=== PATIENT | female | born 1950 | race Caucasian/White ===

== ENCOUNTER 2021-06-26 10:32 | Emergency (ER) | payer MEDICARE, SELFPAY ==
[2021-06-26 10:34] VITALS: BP 155/80; PULSE 70; RESP 18; TEMP 36.6; O2SAT 99; BMI 24.1
--- NOTE | 2021-06-26 10:48 | EX.ED.UPPERE ---
HPI History of Present Illness HPI Narrative: Patient presents with pain in her left wrist that began after a fall today. Patient states she stepped on ice and fell through it. Patient states this caused her to fall onto some wooden steps. Patient denies any head injury or loss of consciousness. Patient states her pain is over the radial aspect of her left wrist. Patient also admits to some pain in her left upper arm. Patient states her pain is worse with any movement. Patient denies any paresthesias or weakness. Patient denies any other injuries. Chief Complaint: Upper Extremity Injury Informant: patient Occured/Mechanism Mechanism/Context: Yes fall and Yes same level fall Onset/Context/Timing Onset: Today Context: Sudden Onset Timing: Continuous Quality of Pain: Sharp and Aching Location: Left wrist Worsened by: Movement Relieved by: Nothing Associated Symptoms Associated Symptoms: Negative for Parasthesia, Weakness and Loss of Funtion PFSH PFS Medical History (Updated 06/26/21 @ 12:[address] Chandan Villanueva DO) Hx of ectopic Home Medications NK 06/26/21 [History Last Taken Unknown] Allergy/AdvReac Type Severity Reaction Status Date / Time No Known Allergies Allergy Verified 06/26/21 10:36 Surgical History (Updated 06/26/21 @ 11:28 by Brandee Orellana) Hx of knee surgery Hx of tonsillectomy Social History Smoking Status: Former smoker ROS ROS ED Constitutional Constitutional ED: Denies chills or fever(s) Eyes Eyes: Denies blurry vision or change in vision ENT ENT ED: Denies rhinorrhea or sore throat Cardiovascular Cardiovascular: Denies chest pain or palpitations Respiratory/Chest Respiratory/Chest: Denies cough or dyspnea Gastrointestinal Gastrointestinal: Denies nausea or vomiting Genitourinary Genitourinary ED: Denies dysuria or hematuria Musculoskeletal Musculoskeletal: Denies back pain or neck pain Integumentary Denies abscess or rash Neurologic Neurologic: Denies headache(s) or weakness Allergic/Immunologic Allergic/Immunologic ED: Denies mouth swelling or urticaria EXAM Physical Exam Const Vital Signs: 06/26/21 10:34 Temperature 97.9 F Temperature Source Temporal Pulse Rate 70 Respiratory Rate 18 Blood Pressure 155/80 H Blood Pressure Mean 105 Pulse Ox 99 Oxygen Delivery Method Room Air Positive well nourished and well developed General Appearance ED: well developed HEENT Reports moist mucous membranes Neck full ROM and supple Extremity Extremity Narrative: There is tenderness, edema, and ecchymosis over the radial aspect of the left wrist. Range of motion was limited in all motions of the left wrist secondary to pain. There is no obvious deformity noted. There is mild tenderness over the left humerus. There is no deformity. There is good range of motion of the left shoulder and left elbow. Radial pulses are equal bilaterally. Sensation was intact to light touch in the radial, median, and ulnar areas. Strength is 5/5 in the radial, median, and ulnar areas. Neuro oriented x3, CN's II-XII intact bilaterally, moves all extremities, no focal motor deficits and no sensory deficits noted Sensorium / Orientation: alert Skin Skin Narrative: There is a small superficial abrasion over the posterior aspect of the left elbow. There is no active bleeding. There is no tenderness. There is full range of motion of the left elbow. MDM MDM MDM Narrative Medical decision making narrative: X-rays of the left wrist were obtained. There are 4 views. On my interpretation, there is a questionable nondisplaced fracture of the dorsal aspect of the distal radius. There are some degenerative changes noted in the carpal bones. Radiologist also interpreted the x-ray and agrees. X-rays of the left humerus were obtained. There are 4 views. On my interpretation, there is no acute fracture noted. There is no soft tissue swelling. Radiologist also interpreted the x-ray and agrees. Patient was advised of her findings. Patient was advised that this could be an occult scaphoid fracture. Patient was given a referral for orthopedic follow-up in 2 weeks for reevaluation and repeat x-ray. Patient declined analgesics. Patient was given restrictions for work. Patient understood and was agreeable with the plan. All questions were answered. Discharge Plan Triage Chief Complaint: Upper Extremity Injury ED Provider: Chandan Villanueva Dx/Rx/DC Orders Clinical Impression: Avulsion fracture Instructions: ED Possible Wrist Fracture Prescriptions: No Action NK RF: 0 Primary Care Provider: Care Physician,No Primary Referrals: Macho Marley MD [STAFF PHYSICIAN] - 1-2 Weeks Care Physician,No Primary [Primary Care Provider] - Disposition Disposition: Home, Self Care
--- NOTE | 2021-06-26 11:00 | RAD_ITS ---
STUDY: X-RAY - LEFT HUMERUS REASON FOR EXAM: Left upper arm pain, left upper arm injury. TECHNIQUE: 2 view(s) of the humerus. COMPARISON: None. FINDINGS: Normal visualized humerus. There is no demonstrated fracture or osseous destructive process. There is no demonstrated soft tissue abnormality. RAD/Humerus min 2 Views IMPRESSION: Normal x-ray examination of the left humerus. Electronically Signed: Misael Sarmiento MD at 11:58 EST ,
--- NOTE | 2021-06-26 11:00 | RAD_ITS ---
STUDY: X-RAY - LEFT WRIST REASON FOR EXAM: Left wrist pain, swelling, left wrist injury this morning. TECHNIQUE: 3 view(s) of the wrist were obtained. COMPARISON: None. FINDINGS: There is osteopenia. There is a subtle cortical break at the dorsal aspect of the distal radius, visualized only on the lateral view. Normal radiocarpal articulation. Normal distal radioulnar articulation. Normal carpal bones. There is joint space narrowing of the triscaphe articulation. Normal carpometacarpal articulation of the thumb. Normal second through fifth carpometacarpal articulations. There is shortening of the third and fourth metacarpals. There is soft tissue swelling. RAD/Wrist min 3 Views IMPRESSION: Suspected subtle nondisplaced fracture of the distal radius. Triscaphe arthrosis. Electronically Signed: Misael Sarmiento MD at 11:50 EST ,
[2021-06-26 12:08] VITALS: BP 150/78; PULSE 72; RESP 18; O2SAT 98
== END 2021-06-26 12:23 | disposition home or self-care (01) ==
PROVIDERS: Emergency Provider Emergency Medicine; Visit Provider Emergency Medicine
DX: S52.502A Unspecified fracture of the lower end of left radius, initial encounter for closed fracture (principal); W00.1XXA Fall from stairs and steps due to ice and snow, initial encounter; M19.032 Primary osteoarthritis, left wrist; Z87.891 Personal history of nicotine dependence
CPT/HCPCS: 73060; 73110; 99283

== ENCOUNTER 2024-05-17 17:18 | Inpatient (IN) | payer MEDICARE, SELFPAY ==
[2024-05-17] VITALS (12 sets, daily range): BP systolic 119–181; BP diastolic 78–103; PULSE 90–155; RESP 18–20; TEMP 36.6–37.8; O2SAT 79–96; BMI 19.1; BMI 20.7
--- NOTE | 2024-05-17 17:31 | EKG12_ITS ---
Test Reason : SOB Blood Pressure : */* mmHG Vent. Rate : 113 BPM Atrial Rate : 113 BPM P-R Int : 172 ms QRS Dur : 68 ms QT Int : 334 ms P-R-T Axes : 19 -6 73 degrees QTcB Int : 458 ms Sinus tachycardia Inferior infarct , age undetermined Abnormal ECG Confirmed by Hari Lewis ([id number]), proposal editor MARIAH PINK ([id number]) on 05/18/2024 9:37:35 AM Referred By: ES/UG Confirmed By: Hari Lewis
--- NOTE | 2024-05-17 17:32 | EDS_ITS ---
HPI History of Present Illness Chief Complaint: Fever Detail of Chief Complaint: Fever, cough, wheezing and dizziness defined as lightheadedness Informant: patient Onset/Context/Timing Onset: Weeks (Illness started approximately 2 weeks ago.) Context: Sudden Onset Timing: Continuous and Waxes and wanes Quality: Upper respiratory Location: Respiratory Current Severity: Mild Maximum Severity: Moderate Worsened by: Activity Relieved by: Nothing Associated Symptoms Associated Symptoms: Subjective fever Narrative Narrative: Patient is a 73-year-old woman no medication with no reported past medical history who presents because of cough, intermittent wheezing, fever. 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 Does not know the type of pneumonia. She is a smoker. She has smoked since she was very young. She presently smokes a couple to several cigarettes a day. She denies headache, visual, ocular auditory symptoms. She does endorse dyspnea with activity, nonproductive cough. She denies pain with breathing. She denies pain in her calves, swelling of her legs or discoloration of her legs. She denies abdominal pain, nausea, vomiting or diarrhea. Prior similar symptoms: Yes Recent Illness/Hospitalization: [facility] Medical History (Updated 05/17/24 @ 19:[address] Sharona Sequeira MD) Smoker Tobacco use Hx of ectopic Home Medications ?Medication ?Instructions ?Recorded ?Last Taken ?Type NK 06/26/21 Unknown History Allergy/AdvReac Type Severity Reaction Status Date / Time No Known Allergies Allergy Verified 05/17/24 17:18 Surgical History Hx of tonsillectomy Hx of knee surgery Social History (Updated 05/17/24 @ 17:[address] Yeison Anderson MD) household members: none Smoking Status: Current some day smoker tobacco type: cigarettes ROS ROS ED Constitutional Constitutional ED: Reports chills, fever(s) and subjective; Denies sweats or weight loss Eyes Eyes: Denies blurry vision, change in vision or diplopia ENT ENT ED: Denies ear pain, rhinorrhea or sore throat Cardiovascular Cardiovascular: Denies chest pain, orthopnea, palpitations, paroxysmal nocturnal dyspnea or racing heartbeat Respiratory/Chest Respiratory/Chest: Reports cough, dyspnea and dyspnea on exertion; Denies orthopnea, paroxysmal nocturnal dyspnea or sputum Gastrointestinal Gastrointestinal: Denies abdominal pain, melena, nausea or vomiting Genitourinary Genitourinary ED: Denies dysuria, hematuria or urinary frequency Musculoskeletal Musculoskeletal: Denies arthralgias, back pain or myalgias Integumentary Denies rash Neurologic Neurologic: Denies headache(s) or paresthesias Psychiatric Psychiatric: Denies anxiety or depression Endocrine Endocrinology: Denies cold intolerance or heat intolerance Hematologic/Lymphatic Hematologic/Lymphatic: Reports systems reviewed and no addt'l complaints, except as documented EXAM Physical Exam Const Vital Signs: 05/17/24 17:19 05/17/24 17:20 05/17/24 17:31 Temperature 100.1 F H 100.1 F H Temperature Source Oral Oral Pulse Rate 155 H 155 H Respiratory Rate 18 18 Respiratory Effort Normal Non-Labored Respiratory Depth Respiratory Pattern Normal Blood Pressure 152/103 H 152/103 H Blood Pressure Mean 119 119 Pulse Ox 92 92 Oxygen Delivery Method Room Air Room Air 05/17/24 17:49 05/17/24 17:52 05/17/24 18:18 Temperature Temperature Source Pulse Rate 110 H 104 H Respiratory Rate 20 H 18 Respiratory Effort Normal Non-Labored Respiratory Depth Normal Respiratory Pattern Normal Blood Pressure 163/83 H Blood Pressure Mean 109 Pulse Ox 90 Oxygen Delivery Method 05/17/24 18:20 05/17/24 18:57 Temperature 99.9 F H Temperature Source Oral Pulse Rate 104 H Respiratory Rate 18 Respiratory Effort Respiratory Depth Respiratory Pattern Blood Pressure 163/83 H Blood Pressure Mean 109 Pulse Ox 90 79 Oxygen Delivery Method Room Air Room Air Positive well developed and cachectic; Negative for contractures or unkempt General Appearance ED: well developed, cachectic and NAD; Negative for unkempt, contractures, cyanotic, diaphoretic or pallor Nutritional Appearance: cachectic HEENT Reports moist mucous membranes HEENT Narrative: Ears normal. Nares patent without discharge. Posterior pharynx unremarkable. Patient has no teeth. Eyes PERRL and EOMs intact bilaterally General Eye ED: Negative for pale conjunctiva or scleral icterus Neck no lymphadenopathy, supple and no JVD Neck Narrative: Trachea is midline. There is no inspiratory stridor or expiratory stridor. Chest Wall inspection of chest normal and palpation of chest normal Resp normal respiratory effort and No clear to auscultation bilaterally Auscultation: wheezes expiratory wheezes, scattered wheezes and posterior Cardio regular rhythm, S1 normal heart sound, S2 normal heart sound and no murmurs Rate: tachycardic GI normal to inspection, nondistended, normoactive bowel sounds, non-tender, non- distended and no masses; Negative for hepatosplenomegaly Back/Spine no CVA tenderness Extremity normal to inspection Extremity Narrative: There is no asymmetry, swelling, discoloration, leg vein distention, palpable cords or tenderness along the distribution of the deep venous system. Neuro oriented x3 and CN's II-XII intact bilaterally Sensorium / Orientation: alert Psych mental status grossly normal Appearance: Negative for unkempt Skin no rashes or lesions noted, no wounds and No skin turgor normal Skin Narrative: Patient has delayed capillary refill. Cap refill is approximately 3 seconds. General Skin Exam: Negative for jaundice or pallor Sepsis Attestation Date exam was performed: 05/17/24 Time exam was performed: 17:38 MDM MDM MDM Narrative Medical decision making narrative: Concern patient has pulmonary infection. Will obtain chest x-ray appropriate blood work to assess for endorgan dysfunction. Since patient has delayed capillary fill with a heart rate of 155 EKG was ordered and 10 cc/kg of normal saline was ordered. Patient has no recent records for review. Lab Data Attestation: I reviewed the patient's lab results. Lab results narrative: CBC is unremarkable. There is a slight shift with 82% segs. Lactate is normal. Comprehensive metabolic panel for slight elevation of creatinine of 1.05 with an estimated GFR 54. Rapid antigen for COVID, influenza and RSV is positive for RSV. Labs: Laboratory Results - last 24 hr 05/17/24 05/17/24 17:43 17:45 WBC 9.1 RBC 4.87 Hgb 14.7 Hct 45.1 MCV 92.6 MCH 30.2 MCHC 32.6 RDW Std Deviation 45.5 H RDW Coeff of Zeb 13.2 Plt Count 234 MPV 9.8 Immature Gran % (Auto) 0.300 Neut % (Auto) 86.2 H Lymph % (Auto) 6.5 L [place] % (Auto) 6.8 Eos % (Auto) 0.0 Baso % (Auto) 0.2 Absolute Neuts (auto) 7.9 H Absolute Lymphs (auto) 0.59 L Nucleated RBC % 0 Sodium 136 Potassium 3.3 L Chloride 100 Carbon Dioxide 27.0 Anion Gap 9 BUN 18 Creatinine 1.05 H Estim Creat Clear Calc 38.61 Est GFR (MDRD) Af Amer 66 Est GFR (MDRD) Non-Af 54 L BUN/Creatinine Ratio 17.1 Glucose 155 H Lactic Acid 1.8 Calcium 9.2 Total Bilirubin 0.90 AST 31 ALT 19 Alkaline Phosphatase 103 Total Protein 7.4 Albumin 3.4 Globulin 4.0 Albumin/Globulin Ratio 0.8 L Radiography Chest X-Ray - ED: 2 View and Read by ED Physician (Moderate size hiatal hernia. There may be an infiltrate superior segment right lower lobe. There is no old x-ray for comparison.) EKG Initial EKG: Attestation: I personally reviewed and interpreted this EKG as follows: Interpretation: Sinus Tachycardia (Rate is 113. There is artifact that the computer is reading is inferior infarct. NC interval 272 ms Rickers duration 68 ms. QT duration 3 to 34 ms. [place] is normal.) Management Discussion w/another healthcare provider: Hospitalist (Spoke with Dr. Sequeira. Since patient is hemodynamically stable and has no past medical history even though she is on 6 L feels she is appropriate for MedSurg unit.) Treatment and Re-Evaluation :: Heart rate improved with the 10 cc/kg bolus. Patient was reassessed. Nurses informing that her pulse ox dropped to the upper 70s. She is presently on 6 L of oxygen by nasal cannula with a saturation of 94%. Still has wheezing. Will administer Solu-Medrol. Discharge Plan Dx/Rx/DC Orders Clinical Impression: Acute hypoxemic respiratory failure, RSV (respiratory syncytial virus infection), Bronchospasm, acute, Sinus tachycardia seen on rn cardiac rehab, Elevated blood-pressure reading without diagnosis of hypertension, Creatinine elevation Disposition Disposition: [facility]
[2024-05-17] MEDS: Albuterol 2.5 MG/3 ML VIAL.NEB. INHALATION ×3 (17:41→17:42)
[2024-05-17 18:05] LABS: Absolute Lymphocyte Count 0.59 X10^3/uL (0.83-4.51); Absolute Neutrophil Count 7.9 X10^3/uL (2.0-7.7); Basophil# 0.02 X10^3/uL; Basophil% 0.2 % (0-1); Hematocrit 45.1 % (37-47); Hemoglobin 14.7 g/dL (12.0-15.0); Lymphocyte # 0.59 X10^3/ul (0.83-4.51); Lymphocyte % 6.5 % (19-41); Mean Corp Hgb Conc 32.6 g/dL (32-36); Mean Corpuscular Hgb 30.2 pg (27.0-32.0); Mean Corpuscular Volume 92.6 fL (81-99); Mean Platelet Vol. 9.8 fl (6.2-12.0); Monocyte# 0.62 X10^3/uL; Monocyte% 6.8 % (0-10); NRBC Flagged by Analyzer 0 % (0-5); Neutrophil # 7.86 X10^3/uL (2.7-7.7); Neutrophil % 86.2 % (47-70); POSITIVE DIFFERENTIAL YES; Platelet Count 234 K/mm3 (150-450); RBC Distribution Width CV 13.2 % (11.6-14.6); RBC Distribution Width SD 45.5 fl (35.1-43.9); Red Blood Count 4.87 M/mm3 (4.2-5.4); White Blood Count 9.1 K/mm3 (4.4-11.0)
[2024-05-17] MEDS: 0.9% Normal Saline (500mL Bag) 500 ML 1000 ML IV (18:10)
--- NOTE | 2024-05-17 18:11 | RAD_ITS ---
STUDY: X-RAY CHEST REASON FOR EXAM: Female, 73 years old. Cough, fever and wheezing TECHNIQUE: Frontal and lateral views of the chest. COMPARISON: None. FINDINGS: Large left diaphragmatic hernia present containing:. Possible bibasilar infiltrate on the right. There is no demonstrated pleural abnormality. Normal size heart. Normal mediastinum and kel. Normal visualized pulmonary arteries. Normal visualized aortic arch and descending thoracic aorta. Moderate scoliosis. Normal visualized ribs, clavicles, and shoulders. There is no demonstrated abnormality of the visualized soft tissue structures of the upper abdomen. RAD/Chest PA and Lateral IMPRESSION: Large diaphragmatic hernia appears to contain colon. Possible right basilar infiltrate. Electronically Signed: Clay Wakefield MD at 20:36 EST ,
[2024-05-17 18:34] LABS: Lactic Acid 1.8 mmol/L (0.4-1.9)
[2024-05-17 18:47] LABS: ALB/GLOB Ratio 0.8 RATIO (0.9-2.4); AST(SGOT) 31 U/L (15-37); Alanine Aminotransfer ALT/SGPT 19 U/L (13-56); Albumin, Serum 3.4 g/dL (3.2-5.0); Alkaline Phosphatase 103 U/L (45-117); Anion Gap 9 (5-15); BUN 18 mg/dL (7-18); BUN/Creat Ratio 17.1 RATIO (10-20); Calcium,Total 9.2 mg/dL (8.5-10.1); Chloride 100 mmol/L (98-107); Creatinine, Serum 1.05 mg/dL (0.55-1.02); EST Glomerular Filtration Rate 54 mL/min (>60); Est Glom Filt Rate - Afr Amer 66 mL/min (>60); Estimated Creatinine Clearance 38.61 ml/min; Glucose 155 mg/dL (74-106); Potassium 3.3 mmol/L (3.5-5.1); Protein, Total 7.4 g/dL (6.4-8.2); Sodium Level 136 mmol/L (136-145)
--- NOTE | 2024-05-17 18:57 | ED.RN ---
pt desats to 79% on room air with a good waveform. 3L nasal cannula applied and pt only improves to 86%. respiratory called and pt placed on 6L nasal cannula.
--- NOTE | 2024-05-17 19:11 | PCM.HP.STD ---
HPI - General General Date of Admission: 05/17/24 Date of Service: 05/17/24 Chief Complaint: Dyspnea, cough, wheezing, subjective fever/chills. 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 She notes that her dyspnea is worse when she exerts herself but does state that the cough has been nonproductive. She denies any associated nausea, emesis or diarrhea with her current illness. Workup in the ED included T 100.1, heart rate initially 155 with significant rate improvement with IV fluids, BP 152/103, respiratory rate 18, initially 92% on room air however did desaturate down to 79% on room air w/ nursing evaluation requiring 6 L transition with improvement to 94%., most recent repeat vitals T99.9 Orally, heart rate 104, BP 162/83, respiratory rate 18, CBC with WBC 9.1, hemoglobin 14.7, platelet 234 with left shift and lymphopenia, CMP with potassium 3.3, BUN/creatinine 18/1.05, GFR 54, glucose 155, lactic acid 1.8, hepatic profile unremarkable, rapid SARS COVID/influenza/RSV PCR with positive RSV, chest x-ray with questionable infiltrate in the superior segment of the right lower lobe, EKG with sinus tachycardia with no acute evidence of ischemia but no comparison. In the ED patient ministered Solu-Medrol 60 mg IV x 1 as well as IV fluids. [facility] Medical History Smoker Tobacco use Hx of ectopic Home Medications ?Medication ?Instructions ?Recorded ?Last Taken ?Type NK 06/26/21 Unknown History Allergy/AdvReac Type Severity Reaction Status Date / Time No Known Allergies Allergy Verified 05/17/24 17:18 Family History Mother Hypertension Father CVA (cerebral vascular accident) Surgical History Hx of tonsillectomy Hx of knee surgery Social History (Updated 05/17/24 @ 19:[address] Sharona Sequeira MD) household members: none Smoking Status: Current some day smoker tobacco type: cigarettes how long ago did patient quit smoking: Quit various time over the years, started as teen, up to 3 ppd, down to 3-5 alcohol intake: never substance use type: does not use ROS ROS Narrative Admission Review of Systems: CONSTITUTIONAL: No weight loss, + fever, chills, weakness or fatigue. HEENT: + Congestion, rhinorrhea, lightheadedness/dizziness, hoarse voice from coughing. Eyes: No visual loss, blurred vision, double vision or yellow sclerae. Ears, Nose, Throat: No hearing loss, runny nose or sore throat. SKIN: No rash or itching, lesions, wounds. CARDIOVASCULAR: No chest pain, chest pressure or chest discomfort, palpitations, edema, orthopnea, syncopal events. RESPIRATORY: + Dyspnea, cough not markedly productive, wheezing. No hemoptysis. GASTROINTESTINAL: + Anorexia. No nausea, vomiting or diarrhea, abdominal pain, melena, BRBPR. GENITOURINARY: No dysuria, frequency, urgency or retention. NEUROLOGICAL: + Lightheadedness/dizziness. No headache, syncope, paralysis, ataxia, numbness or tingling in the extremities, focal weakness, change in bowel or bladder control, seizure. MUSCULOSKELETAL: + muscle, back pain, joint pain or stiffness. HEMATOLOGIC: No anemia, bleeding or bruising. LYMPHATICS: No enlarged nodes. No history of splenectomy. PSYCHIATRIC: No history of depression or anxiety. ENDOCRINOLOGIC: No reports of sweating, cold or heat intolerance. No polyuria or polydipsia. ALLERGIES: No history of asthma, hives, eczema or rhinitis. Vital Signs Vital Signs Vital Signs: 05/17/24 17:19 05/17/24 17:20 05/17/24 17:31 Temperature 100.1 F H 100.1 F H Temperature Source Oral Oral Pulse Rate 155 H 155 H Respiratory Rate 18 18 Respiratory Effort Normal Non-Labored Respiratory Depth Respiratory Pattern Normal Blood Pressure 152/103 H 152/103 H Blood Pressure Mean 119 119 Pulse Ox 92 92 Oxygen Delivery Method Room Air Room Air 05/17/24 17:49 05/17/24 17:52 05/17/24 18:18 Temperature Temperature Source Pulse Rate 110 H 104 H Respiratory Rate 20 H 18 Respiratory Effort Normal Non-Labored Respiratory Depth Normal Respiratory Pattern Normal Blood Pressure 163/83 H Blood Pressure Mean 109 Pulse Ox 90 Oxygen Delivery Method 05/17/24 18:20 05/17/24 18:57 Temperature 99.9 F H Temperature Source Oral Pulse Rate 104 H Respiratory Rate 18 Respiratory Effort Respiratory Depth Respiratory Pattern Blood Pressure 163/83 H Blood Pressure Mean 109 Pulse Ox 90 79 Oxygen Delivery Method Room Air Room Air Weight Weight: 114 lb 11.2 oz Body Mass Index (BMI) 19.1 Physical Exam Narrative Physical Examination: General: Awake, alert, oriented x 3 and cooperative, seated upright in the ED bed, fatigued, ill-appearing, coughing with hoarse voice, notes she does feel improved since initial ED presentation with the oxygen but still increased work of breathing as well as some accessory muscle usage. Skin: Normal color, normal turgor, no icterus, no cyanosis except occasional stage ecchymoses/abrasion. HEENT: AT/NC, EOMI, PERRLA, moderately dry MM, no carotid bruits or JVD noted. Lungs: Severely diminished, greater bases, mildly increased respiratory rate with some accessory muscle usage, respiratory distress is improving, diffuse expiratory wheezing, no rales or rhonchi. Heart: Mildly tachycardic with regular rhythm; no gallop, rub audible. Abdomen: Soft, thin habitus, NTTP, ND, distant normal BS, no appreciated HSM. Extremities: No cyanosis, clubbing, or edema. Neurological: Patient awake, alert, oriented as noted, cognitive function intact; pupils equally reactive to light and accommodation, cranial nerves gross normal, moving all 4 extremities, no focal deficits, strength severely globally decreased secondary to acute presentation. Psychiatric: Affect appears fatigued, ill-appearing, respiratory distress lessening, no acute evidence of depressive or anxiety feelings. Results Lab / Micro Data 05/17/24 17:45 05/17/24 17:45 Labs: Laboratory Results - last 24 hr 05/17/24 17:43: Lactic Acid 1.8 05/17/24 17:45: WBC 9.1, RBC 4.87, Hgb 14.7, Hct 45.1, MCV 92.6, MCH 30.2, MCHC 32.6, RDW Std Deviation 45.5 H, RDW Coeff of Zeb 13.2, Plt Count 234, MPV 9.8, Immature Gran % (Auto) 0.300, Neut % (Auto) 86.2 H, Lymph % (Auto) 6.5 L, [place] % (Auto) 6.8, Eos % (Auto) 0.0, Baso % (Auto) 0.2, Absolute Neuts (auto) 7.9 H, Absolute Lymphs (auto) 0.59 L, Nucleated RBC % 0, Sodium 136, Potassium 3.3 L, Chloride 100, Carbon Dioxide 27.0, Anion Gap 9, BUN 18, Creatinine 1.05 H, Estim Creat Clear Calc 38.61, Est GFR (MDRD) Af Amer 66, Est GFR (MDRD) Non-Af 54 L, BUN/Creatinine Ratio 17.1, Glucose 155 H, Calcium 9.2, Total Bilirubin 0.90, AST 31, ALT 19, Alkaline Phosphatase 103, Total Protein 7.4, Albumin 3.4, Globulin 4.0, Albumin/Globulin Ratio 0.8 L Micro: Microbiology 05/17/24 17:51 Mucosa - Nose SARS-CoV-2, Influenza & RSV (PCR) - Final RSV Assessment & Plan Assessment/Plan (1) RSV (respiratory syncytial virus infection): PLAN: Plan The patient is a 73 y/o F w/ PMHx: Tobacco use with no other noted marked medical history however she has not been to see a physician in a lengthy med of time and takes no medications with questionable underlying possible COPD it has been undiagnosed who presents to the [facility] ED on 05/17/24 with history of 2 weeks of progressively worsening fatigue, malaise, fever, cough, wheezing, lightheadedness and dizziness has been waxing and waning 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 She notes that her dyspnea is worse when she exerts herself but does state that the cough has been nonproductive. #1. Acute Hypoxic Respiratory Failure (significant hypoxemia into the 70s, tachypnea, accessory muscle usage) secondary to acute RSV viral infection with associated bronchospasms with potentially given prolonged tobacco use history Acute on Chronic Undiagnosed COPD exacerbation, lower suspicion for pneumonia although possible infiltrate superior segment right lower lobe but no film comparison: Will admit to MS telemetry given HR improved with IVFs and respiratory status improving following ED interventions per discussion with ED physician, to be cautious will request ABG, will maintain on oxygen with wean as tolerated to room air, maintain on ATC budesonide therapy given significant tachycardia upon presentation, PRN albuterol, IV methylprednisolone, HOB, IS parameters, will obtain sputum Cx, antigens and will request full respiratory viral panel although initial shortening panel is RSV positive, procalcitonin, will hold on immediately abx therapy but low threshold to add if appropriate. If procalcitonin significantly elevated then may consider initiation of antibiotic therapy but again current presentation more suspicious for viral etiology primarily. #2. Hypokalemia: Admission K+ 3.3, magnesium level requested, supplementation given, repeat level in AM. #3. Questionable Chronic Kidney Disease Stage III per GFR trending but no comparison: Admission BUN/Cr 18/1.05, GFR 54, baseline renal function unknown, repeat BMP in AM to further elucidate chronicity. #4. Elevated BP without hypertensive diagnosis: Patient with elevated BP above goal, potentially related with her acute presentation, may add oral regimen if clinically appropriate, in the interim as needed IV hydralazine. #5. Hyperglycemia without diabetic history: Admission glucose 155, will obtain hemoglobin A1c be cautious as patient is not been following with any physician. #6. Tobacco Abuse: Encouraged cessation, inpatient consultation per RT, NR if desired. #7. DVT prophylaxis: Lovenox. #8. CODE status: Patient HCPOA and living will are not in place but she notes intention to set these up and notes that her medical decision-maker if necessary would be her best friend Lora Rosas. Discussed CODE status at length including difference between FULL code, DNR-CCA and DNR-CC status. Following discussions about the differences in these status, requested DNR-CCA with allowance of short-term intubation. Advanced Care Planning Face to Face Time: 16 minutes. Charges/Coding Visit Charges Inpatient E&M: 27294 Init Hosp L3 Procedures Hospitalists Procedures: 25847 Advncd Care Plan 30 Min
[2024-05-17] MEDS: MethylPREDNISolone 125 MG/2 ML Vial 60 MG IV (19:33)
[2024-05-17 19:43] LABS: Allen Test Positive; Base Excess -1 mmol/L (-2 to +2); Bicarbonate 23.4 mmol/L (22-26); Blood Gas Specimen Type ART; Mode Not entered; O2 Delivery Device Cannula; PO2 73 mmHG (75-100); SITE L Radial; SO2 95 % (95-99); Total Carbon Dioxide 25 mmol/L; pCO2 34.5 mmHg (35-45); pH 7.44 (7.35-7.45)
[2024-05-17 20:07] LABS: Procalcitonin 0.27 ng/mL (0.00-0.09)
[2024-05-17] MEDS: 0.9% Normal Saline (1000mL) 1,000 ML 100 ML IV (21:19)
[2024-05-17] MEDS: Potassium Chloride Oral Tablet 20 MEQ 40 MEQ PO (22:52)
[2024-05-18] VITALS (11 sets, daily range): BP systolic 118–144; BP diastolic 74–79; PULSE 18–109; RESP 20–24; TEMP 36.7–36.9; O2SAT 89–97; BMI 20.7
[2024-05-18] MEDS: Budesonide Respules 0.5 MG/2 ML AMPUL.NEB. INHALATION ×2 (07:24→20:30)
[2024-05-18 08:49] LABS: Absolute Lymphocyte Count 1.06 X10^3/uL (0.83-4.51); Absolute Neutrophil Count 11.7 X10^3/uL (2.0-7.7); Basophil# 0.04 X10^3/uL; Basophil% 0.3 % (0-1); Eosinophil# 1.01 X10^3/uL; Eosinophils% 7.1 % (0-5); Hematocrit 42.2 % (37-47); Hemoglobin 14.1 g/dL (12.0-15.0); Lymphocyte # 1.06 X10^3/ul (0.83-4.51); Lymphocyte % 7.4 % (19-41); Mean Corp Hgb Conc 33.4 g/dL (32-36); Mean Corpuscular Hgb 30.8 pg (27.0-32.0); Mean Corpuscular Volume 92.1 fL (81-99); Mean Platelet Vol. 9.9 fl (6.2-12.0); Monocyte# 0.39 X10^3/uL; Monocyte% 2.7 % (0-10); NRBC Flagged by Analyzer 0 % (0-5); Neutrophil # 11.65 X10^3/uL (2.7-7.7); Neutrophil % 81.7 % (47-70); POSITIVE MORPHOLOGY YES; Platelet Count 219 K/mm3 (150-450); RBC Distribution Width CV 13.3 % (11.6-14.6); RBC Distribution Width SD 45.1 fl (35.1-43.9); Red Blood Count 4.58 M/mm3 (4.2-5.4); White Blood Count 14.3 K/mm3 (4.4-11.0)
[2024-05-18 09:11] LABS: ALB/GLOB Ratio 0.8 RATIO (0.9-2.4); AST(SGOT) 30 U/L (15-37); Alanine Aminotransfer ALT/SGPT 21 U/L (13-56); Albumin, Serum 2.8 g/dL (3.2-5.0); Alkaline Phosphatase 83 U/L (45-117); Anion Gap 6 (5-15); BUN 20 mg/dL (7-18); Chloride 107 mmol/L (98-107); EST Glomerular Filtration Rate 75 mL/min (>60); Est Glom Filt Rate - Afr Amer 90 mL/min (>60); Globulin 3.7 g/dL (2.2-4.2); Glucose 193 mg/dL (74-106); Protein, Total 6.5 g/dL (6.4-8.2); Sodium Level 135 mmol/L (136-145)
[2024-05-18 09:43] LABS: Differential Indicated SCAN CRITERIA MET
[2024-05-18 10:27] LABS: Hemoglobin A1c 5.6 % (3.8-5.6)
[2024-05-18] MEDS: Enoxaparin 30 MG/0.3 ML Syringe SC (11:09)
--- NOTE | 2024-05-18 11:47 | CASEMGMT ---
LAMONT FERNANDO Assessment Face to Face with patient for initial transition planning/care coordination assessment. LAMONT FERNANDO introduced self and role at [facility], pt voices understanding. Pt is A&Ox4 and is resting comfortably in bed and is calm. Care providers, pharmacy, and demographics verified. Admitting dx: RSV, Hypoxia LACE Strata: 1 PCP: No PCP. Pt denied PCP list offered. Specialists: Denies Preferred Pharmacy: [facility] Insurance: AARP MCR ADV Prescription Benefit: Yes LNOK: Lora Julien (Friend) Living Arrangements: Pt lives alone with 17 cats in a single story home with 5 steps to enter ADLs/IADLs: States ind Transportation: Self. Pt states that she drove herself to [facility] and plans to drive herself back home at the time of DC and denies concerns DME: Pt states that her and her friend work at a [employer] and that she has access to DME. Pt states that she has access to plenty of DME including a BSC, FWW, Cane, Portable tanks, concentrator, pulse ox, and BP machine. Pt is currently requiring additional oxygen and may qualify for home oxygen use. A verbal list of local in-network DME companies were provided to the pt at this time. However, pt adamantly refuses to get established with a DME company and states that she will pay and manage this herself with the DME available to her. HHC/SNF: Denies history or needs Pt?s goal: Return home Plan: Home, anticipate no needs e/f potential oxygen. See above. Current 6-Click score is 18 and PT/OT are pending. However, pt denies the need for HH, OP Tx, or CCN. Pt states that she feels safe and plans to return home alone once medically ready and denies further questions or concerns. Report given to SLOT OPERATIONS MANAGER CM. Dewayne Marley RN, CM
[2024-05-18] MEDS: 0.9% Saline Lock 10 ML Syringe IV ×2 (14:07→22:14)
--- NOTE | 2024-05-18 16:04 | CHAPLAIN ---
Type of Pastoral Visit _x__ Initial Visit ___ Follow-up Visit ___ On-call Visit ___ General Patient Visit ___ Spiritual Assessment ___ Family Conference ___ Bereavement ___ Rapid Response ___ Code Blue ___ Other (describe below) Pastoral Care Referral From _x__ Patient ___ Family ___ Nurse ___ Physician ___ Attendant Coin Operated Laundry ___ Cream Beater ___ Other (describe below) Sacrament/Intervention _x__ Active listening ___ Anointing ___ Caodaism ___ Bereavement ___ Communion ___ Yi exploration ___ _x__ Life review _x__ Prayer ___ Reconciliation ___ Sacrament of Sick ___ Supportive presence ___ Wedding ___ Other (describe below) Pastoral Comments patient is talkative and explains her health need but also her desire to be discharged; pt states that it has been over 40 years since she was in the hospital and is quite independent and self sufficient; 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
--- NOTE | 2024-05-18 18:25 | PN.HOSP_ITS ---
Reason for Visit Reason for Visit: Diagnoses Other specified viral diseases (05/17/24) Subjective Subjective Patient was seen and examined today, she is on minimal nasal cannula oxygen, she asked me if she could be discharged home and I told her I would reevaluate her tomorrow morning. Patient has never been diagnosed with COPD but she rarely goes to a physician and patient still smokes-she states less than a half a pack of cigarettes a day. Objective Data Objective Data Vital Signs: Vital Signs Temp Pulse Resp BP Pulse Ox O2 Del Method O2 Flow Rate 98.4 F 68 20 H 144/74 H 92 Room Air 2 05/18/24 17:30 05/18/24 17:30 05/18/24 17:30 05/18/24 17:30 05/18/24 17:30 05/18/24 17:30 05/18/24 14:16 Oxygen Flow Rate (L/min) 2 Oxygen Delivery Method Room Air Weight: 51.5 kg Body Mass Index (BMI) 20.7 Intake & Output: Intake and Output for Last 24 Hours 05/16/24 05/17/24 05/18/24 23:59 23:59 23:59 Intake Total 500 / 500 1440 / 1440 Output Total 0 / 0 Balance 500 / 500 1440 / 1440 Lab / Micro Data 05/18/24 08:27 05/18/24 08:27 Labs: Laboratory Results - last 24 hr 05/17/24 17:43: Lactic Acid 1.8 05/17/24 17:45: Sodium 136, Potassium 3.3 L, Chloride 100, Carbon Dioxide 27.0, Anion Gap 9, BUN 18, Creatinine 1.05 H, Estim Creat Clear Calc 38.61, Est GFR (MDRD) Af Amer 66, Est GFR (MDRD) Non-Af 54 L, BUN/Creatinine Ratio 17.1, G lucose 155 H, Calcium 9.2, Magnesium 2.0, Total Bilirubin 0.90, AST 31, ALT 19, Alkaline Phosphatase 103, Total Protein 7.4, Albumin 3.4, Globulin 4.0, A lbumin/Globulin Ratio 0.8 L 05/17/24 19:35: Procalcitonin 0.27 H 05/18/24 08:27: WBC 14.3 H, RBC 4.58, Hgb 14.1, Hct 42.2, MCV 92.1, MCH 30.8, MCHC 33.4, RDW Std Deviation 45.1 H, RDW Coeff of Zeb 13.3, Plt Count 219, MPV 9.9, Immature Gran % (Auto) 0.800, Neut % (Auto) 81.7 H, Lymph % (Auto) 7.4 L, [place] % (Auto) 2.7, Eos % (Auto) 7.1 H, Baso % (Auto) 0.3, Absolute Neuts (auto) 11.7 H, Absolute Lymphs (auto) 1.06, Nucleated RBC % 0, Sodium 135 L, Potassium 4.0, Chloride 107, Carbon Dioxide 22.0, Anion Gap 6, BUN 20 H, Creatinine 0.80, Estim Creat Clear Calc 48.80, Est GFR (MDRD) Af Amer 90, Est GFR (MDRD) Non-Af 75, BUN/Creatinine Ratio 25.0 H, Glucose 193 H, Hemoglobin A1c 5.6, Calcium 9.0, Total Bilirubin 0.80, AST 30, ALT 21, Alkaline Phosphatase 83, Total Protein 6.5, Albumin 2.8 L, Globulin 3.7, Albumin/Globulin Ratio 0.8 L Micro: Microbiology 05/18/24 10:20 Urine, Clean Catch Legionella Antigen - Final 05/18/24 10:20 Urine, Clean Catch Streptococcus pneumoniae Antigen (M - Final 05/17/24 23:02 Mucosa - Nasopharyngeal Respiratory Panel (PCR) - Final RSV A 05/17/24 17:51 Mucosa - Nose SARS-CoV-2, Influenza & RSV (PCR) - Final RSV ABG Data ABG results: ABG 05/17/24 19:39 Specimen Type ART Sample Site L Radial pH 7.44 Bicarbonate Actual 23.4 Total CO2 25 Base Excess -1 O2 Saturation 95 O2 % 4.0 ABG pCO2 34.5 L ABG pO2 73 L Jordy Test Positive O2 Delivery Device Cannula Vent Mode Not entered Radiography Diagnostic Testing: Radiology Impression Chest X-Ray 05/17/24 18:11 IMPRESSION: Large diaphragmatic hernia appears to contain colon. Possible right basilar infiltrate. Electronically Signed: Clay Wakefield MD at 20:36 EST , Physical Exam Const alert, oriented x3 and no apparent distress General Appearance: cooperative, well kempt and well developed Orientation / Consciousness: awake, oriented to person, oriented to place and oriented to time HEENT normocephalic, head/scalp atraumatic and moist oral mucous membranes Eyes PERRL, EOMs intact bilaterally and conjunctivae normal Neck supple, no JVD, thyroid normal and no carotid bruits General: trachea midline Resp normal respiratory effort, no retractions and no use of accessory muscles Resp Narrative: Patient has scattered expiratory rhonchi bilaterally Auscultation: Negative for rales, rhonchi or wheezes Cardio regular rate, regular rhythm, S1 normal heart sound, S2 normal heart sound, no murmurs, no rub and no gallops GI normal to inspection, nondistended, normoactive bowel sounds, soft to palpation, non-tender and non-distended Extremity no clubbing, cyanosis or edema Skin no rashes or lesions noted General Skin Exam: no breakdown Neuro oriented x3, CN's II-XII intact bilaterally, moves all extremities, no focal motor deficits and no sensory deficits noted Sensorium / Orientation: awake and alert Speech: speech normal Psych affect normal Assessment & Plan Assessment/Plan (1) RSV (respiratory syncytial virus infection): PLAN: Plan 1. Acute hypoxic respiratory failure secondary to RSV viral infection and undiagnosed COPD-patient will continue on her present medications to be reevaluated tomorrow #2 probable COPD-again patient has not had pulmonary function test performed but she has a long history of smoking and still smokes, this complicates care, management, recovery, and prognosis #3 RSV tracheobronchitis-patient will remain on her present medications Total clinical time spent by myself addressing the patient's medical issues, reviewing her data, and collaborating with patient's care team: 35 minutes Charges/Coding Visit Charges Inpatient E&M: 15059 Subs Hosp L2
[2024-05-18] MEDS: Albuterol 2.5 MG/3 ML VIAL.NEB. INHALATION (20:30)
[2024-05-19 05:47] VITALS: PULSE 68
[2024-05-19 06:00] VITALS: BMI 21.0
[2024-05-19 06:23] VITALS: BP 136/88; PULSE 67; RESP 16; O2SAT 94
[2024-05-19] MEDS: Albuterol 2.5 MG/3 ML VIAL.NEB. INHALATION (07:12)
[2024-05-19] MEDS: Budesonide Respules 0.5 MG/2 ML AMPUL.NEB. INHALATION (07:12)
[2024-05-19 07:14] VITALS: PULSE 85; RESP 22; O2SAT 90
[2024-05-19 08:03] VITALS: BP 120/70; PULSE 70; RESP 16; TEMP 36.4; O2SAT 95
[2024-05-19 10:24] VITALS: O2SAT 87; O2SAT 94; O2SAT 95
--- NOTE | 2024-05-19 13:12 | DCINST_ITS ---
Discharge Instructions Diet Discharge Diet: No restrictions DC O2, CPAP, BIPAP needs RN Home O2 Qualification: Home O2 Qualification: Is the patient on home oxygen No 05/19/24 10:24 Home O2 Qualification: AT REST 1- Pulse Ox at rest 87 05/19/24 10:24 2- Pulse Ox at rest 95 05/19/24 10:24 2- Oxygen Flow Rate at rest 2 05/19/24 10:24 Home O2 Qualification: WITH AMBULATION 1- Pulse Ox with ambulation 94 05/19/24 10:24 1- Oxygen Flow Rate with 2 05/19/24 10:24 ambulation Home O2 Discharge instructions: Yes Type of respiratory needs?: Oxygen Oxygen frequency: Continuous Continuous oxygen liters per minute: 2 L Dressing / Incision Discharge Activity: Return to Normal Activity Weight Bearing Status: Full weight bearing Follow Up Care Test Results: Test results from this visit will be discussed in further detail at your follow- up appointment, if applicable. Discharge Plan Admission Admit Date/Time: 05/17/24 19:12 Primary Reason for Your Visit: respiratory failure Attending Provider: Laith Whelan Primary Care Provider: Care Physician,Jaycee Primary Consulting Providers: Sharona Sequeira Instructions Additional Instructions / Restrictions: Follow-up with a primary care physician in 2 to 3 weeks Discharge Orders/Prescriptions Prescriptions: New methylprednisolone [Medrol (Alhaji)] 4 mg tablets,dose pack 4 mg PO PER PKG DIR Qty: 21 0RF Rx Instructions: orally per package directions orally per package directions; albuterol sulfate 90 mcg/actuation HFA aerosol inhaler 2 puff inhalation Q6H PRN (Reason: shortness of breath or wheezing) Qty: 8.5 0RF Rx Instructions: Use 2 puffs 4 times a day for 5 days, then use 2 puffs every 6 hours as needed dyspnea Referrals / Follow Up: Care Physician,No Primary [Primary Care Provider] - Disposition Disposition (needs filled in before D/C Order can be placed): Home, Self Care
--- NOTE | 2024-05-19 13:18 | DS.PCM_ITS ---
Providers Date of Admission: 05/17/24 Date of Discharge: 05/19/24 Primary Care Physician: Jaycee Primary Care Phys Reason For Visit: RSV, HYPOXIA Diagnosis Discharge Diagnosis (1) RSV (respiratory syncytial virus infection): Status: Acute Code(s): B33.8 - Other specified viral diseases Plan 1. Acute hypoxic respiratory failure secondary to RSV viral infection and undiagnosed COPD-patient will continue on her present medications to be reevaluated tomorrow #2 probable COPD-again patient has not had pulmonary function test performed but she has a long history of smoking and still smokes, this complicates care, management, recovery, and prognosis #3 RSV tracheobronchitis-patient will remain on her present medications Total clinical time spent by myself addressing the patient's medical issues, reviewing her data, and collaborating with patient's care team: 35 minutes Medications at Discharge Home Medications albuterol sulfate 90 mcg/actuation aerosol inhaler 2 puff inhalation Q6H PRN shortness of breath or wheezing #8.5 grams 05/19/24 methylprednisolone 4 mg tablets in a dose pack (Medrol (Alhaji)) 4 mg PO PER PKG DIR #21 tabs 05/19/24 Hospital Course Operations None Procedures None Summary of Care Provided Minutes Spent on Discharge: 30 Hospital Course: This 73-year-old white female was seen in the emergency room at [facility] with complaints of cough, wheezing, and fever. Patient does not follow-up with a physician on a regular basis. Patient was an active smoker. Workup in the emergency room included labs which included a normal CBC, patient's chemistry panel was abnormal for a potassium of 3.3 and a creatinine of 1.05. Chest x-ray showed a large diaphragmatic hernia which appears to contain colon, there was a possible right basilar infiltrate noted. Testing was positive for RSV. Patient was admitted to PCU, placed on IV corticosteroids and aerosol treatments, her symptoms improved. On 05/19/2024, patient was evaluated for ambulatory/stationary oxygen needs, she was found to require 2 L of oxygen at rest and 2 L of oxygen with ambulation. Patient agreed to have oxygen set up at her home. Oxygen testing reviewed, patient is ambulatory in the home and community and requires home oxygen with portability. On 05/19/2024, patient was seen and examined: On examination she appeared in good health and spirits, she does not appear to be in any distress. Vital signs as documented. Skin warm and dry and without overt rashes. Neck without JVD, thyroid appears normal, trachea is midline, neck is supple. Lungs clear, normal air movement was noted. Heart exam notable for regular rhythm, normal sounds and absence of murmurs, rubs or gallops. Abdomen unremarkable and without evidence of organomegaly, masses, or abdominal aortic enlargement, bowel sounds are present in all 4 quadrants, no abdominal tenderness was noted. Extremities nonedematous, no cyanosis was noted, no clubbing was noted. Neuro: Cranial nerves II through XII are grossly intact, no focal motor deficits were noted, sensation to light touch and pinprick is intact, motor exam 5/5 throughout. Psych: Patient is alert and oriented x3, she does not appear anxious or depressed, she does not appear agitated. Patient was given information for a physician follow-up but she declined stating that she was not going to follow-up with any physician. Patient was discharged on 05/19/2024 in stable condition. Weight / BMI Weight Weight: 52.2 kg Body Mass Index (BMI) 21.0 ABG / Lab / Microbiology Data 05/18/24 08:27 05/18/24 08:27 Microbiology: Microbiology 05/18/24 10:20 Urine, Clean Catch Legionella Antigen - Final 05/18/24 10:20 Urine, Clean Catch Streptococcus pneumoniae Antigen (M - Final 05/17/24 23:02 Mucosa - Nasopharyngeal Respiratory Panel (PCR) - Final RSV A 05/17/24 17:51 Mucosa - Nose SARS-CoV-2, Influenza & RSV (PCR) - Final RSV D/C Instructions Discharge Diet: No restrictions Weight Bearing Status: Full weight bearing DC O2, CPAP, BIPAP Needs RN Home O2 Qualification: Home O2 Qualification: Is the patient on home oxygen No 05/19/24 10:24 Home O2 Qualification: AT REST 1- Pulse Ox at rest 87 05/19/24 10:24 2- Pulse Ox at rest 95 05/19/24 10:24 2- Oxygen Flow Rate at rest 2 05/19/24 10:24 Home O2 Qualification: WITH AMBULATION 1- Pulse Ox with ambulation 94 05/19/24 10:24 1- Oxygen Flow Rate with 2 05/19/24 10:24 ambulation Home O2 Discharge instructions: Yes Type of respiratory needs?: Oxygen Oxygen frequency: Continuous Continuous oxygen liters per minute: 2 L DC home with Oxygen: Yes Home O2 MD Review: I have reviewed the oxygen testing, and the patient qualifies for home oxygen equipment and portability. The patient is mobile in the home and the community. Meaningful Use Info Meaningful Use Meaningful Use Diagnoses (Choose all that apply): None applicable Ischemic Stroke Statin Dosing Therapy Reference: STATIN DOSE THERAPY REFERENCE: * Patients > 75 years receive moderate or high dose statin therapy. * Patients 75 years or YOUNGER should receive HIGH intensity statin dose unless contraindicated. You will be required to document reason for non-treatment if statin daily dose does not meet guidelines. HIGH DOSE STATIN THERAPY DAILY Atorvastatin > than or = to 40 mg Rosuvastatin > than or = to 20 mg Amlodipine + Atorvastatin > than or = to 2.5/40 mg Ezetimibe + Simvastatin 10/80 mg Simvastatin 80mg Discharge Plan Admission Admit Date/Time: 05/17/24 19:12 Primary Reason for Your Visit: respiratory failure Attending Provider: Laith Whelan Primary Care Provider: Care Physician,No Primary Consulting Providers: Sharona Sequeira Instructions Additional Instructions / Restrictions: Follow-up with a primary care physician in 2 to 3 weeks Discharge Orders/Prescriptions Prescriptions: New methylprednisolone [Medrol (Alhaji)] 4 mg tablets,dose pack 4 mg PO PER PKG DIR Qty: 21 0RF Rx Instructions: orally per package directions orally per package directions; albuterol sulfate 90 mcg/actuation HFA aerosol inhaler 2 puff inhalation Q6H PRN (Reason: shortness of breath or wheezing) Qty: 8.5 0RF Rx Instructions: Use 2 puffs 4 times a day for 5 days, then use 2 puffs every 6 hours as needed dyspnea Referrals / Follow Up: Care Physician,No Primary [Primary Care Provider] - Disposition Disposition (needs filled in before D/C Order can be placed): Home, Self Care Charges/Coding Visit Charges Inpatient E&M: 69228 Disch Hosp >30min
--- NOTE | 2024-05-19 13:35 | CASEMGMT ---
Social Work SW provided pt with list of PCP's. Pt stating, I don't do doctors. Pt states she sees a doctor once every ten years in situations like this but does not need a PCP. Pt did allow SW to leave information. Physician updated. Meggan Quintero, [facility]
[2024-05-19 14:12] VITALS: BP 145/92; PULSE 78; RESP 16; O2SAT 95
== END 2024-05-19 14:33 | disposition home or self-care (01) | DRG 202 ==
LOC: ED 18:59 → PCU 19:52
PROVIDERS: Admitting Provider Family Medicine; Emergency Provider Emergency Medicine; Visit Provider Internal Medicine
DX: J20.5 Acute bronchitis due to respiratory syncytial virus (principal); R64 Cachexia; J44.1 Chronic obstructive pulmonary disease with (acute) exacerbation; J44.0 Chronic obstructive pulmonary disease with (acute) lower respiratory infection; B97.4 Respiratory syncytial virus as the cause of diseases classified elsewhere; J98.01 Acute bronchospasm; F17.210 Nicotine dependence, cigarettes, uncomplicated; E87.6 Hypokalemia; K44.9 Diaphragmatic hernia without obstruction or gangrene; R73.9 Hyperglycemia, unspecified; R03.0 Elevated blood-pressure reading, without diagnosis of hypertension; Z68.21 Body mass index [BMI] 21.0-21.9, adult; R74.8 Abnormal levels of other serum enzymes; R00.0 Tachycardia, unspecified; Z99.81 Dependence on supplemental oxygen
CPT/HCPCS: 36415; 36600; 71046; 80053; 82803; 83036; 83605; 83735; 84145; 85025; 87449; 87631; 87633; 93005; 94003; 94640; 94668; 97162; 97165; 97802; 99285; A4216

== ENCOUNTER → 2024-06-12 | Outpatient (CLI) | payer MEDICARE, SELFPAY ==
[2024-06-12 16:32] LABS: Absolute Neutrophil Count 4.6 X10^3/uL (2.0-7.7); Basophil# 0.06 X10^3/uL; Basophil% 0.8 % (0-1); Eosinophil# 0.31 X10^3/uL; Eosinophils% 4.3 % (0-5); Hemoglobin 13.2 g/dL (12.0-15.0); Mean Corp Hgb Conc 32.2 g/dL (32-36); Mean Corpuscular Hgb 29.9 pg (27.0-32.0); Mean Corpuscular Volume 92.8 fL (81-99); Mean Platelet Vol. 9.8 fl (6.2-12.0); Monocyte# 0.44 X10^3/uL; Monocyte% 6.1 % (0-10); NRBC Flagged by Analyzer 0 % (0-5); Neutrophil # 4.55 X10^3/uL (2.7-7.7); Neutrophil % 63.4 % (47-70); Platelet Count 283 K/mm3 (150-450); RBC Distribution Width CV 13.4 % (11.6-14.6); RBC Distribution Width SD 45.7 fl (35.1-43.9); Red Blood Count 4.42 M/mm3 (4.2-5.4); White Blood Count 7.2 K/mm3 (4.4-11.0)
[2024-06-12 17:11] LABS: ALB/GLOB Ratio 0.8 RATIO (0.9-2.4); AST(SGOT) 17 U/L (15-37); Alanine Aminotransfer ALT/SGPT 16 U/L (13-56); Albumin, Serum 3.1 g/dL (3.2-5.0); Alkaline Phosphatase 77 U/L (45-117); Anion Gap 7 (5-15); BUN 21 mg/dL (7-18); BUN/Creat Ratio 30.4 RATIO (10-20); Calcium,Total 9.4 mg/dL (8.5-10.1); Chloride 106 mmol/L (98-107); Cholesterol 235 mg/dL (200); Creatinine, Serum 0.69 mg/dL (0.55-1.02); EST Glomerular Filtration Rate 88 mL/min (>60); Est Glom Filt Rate - Afr Amer 107 mL/min (>60); Globulin 3.7 g/dL (2.2-4.2); Glucose 105 mg/dL (74-106); High Density Lipoprotein 70 mg/dL; Potassium 3.8 mmol/L (3.5-5.1); Protein, Total 6.8 g/dL (6.4-8.2); Sodium Level 139 mmol/L (136-145); Triglycerides 84 mg/dL; Very Low Density Lipoprotein 17 mg/dL (5-40)
[2024-06-12 17:39] LABS: Hepatitis C Antibody Non-Reactive (Nonreactive); Vitamin D,25 Hydroxy 20.6 ng/mL
== END | disposition home or self-care (01) ==
PROVIDERS: Referring Provider Family Medicine Geriatric Medicine; Visit Provider Family Medicine Geriatric Medicine
DX: Z13.89 Encounter for screening for other disorder (principal); R53.83 Other fatigue; E78.5 Hyperlipidemia, unspecified; E55.9 Vitamin D deficiency, unspecified
CPT/HCPCS: 36415; 80053; 80061; 82306; 84443; 85025; 86803

== ENCOUNTER → 2024-07-03 | Outpatient (CLI) | payer MEDICARE, SELFPAY | END | disposition home or self-care (01) | LOC: PSN 09:44 | PROVIDERS: PCP Family Medicine Geriatric Medicine; Referring Provider Family Medicine Geriatric Medicine; Visit Provider Family Medicine Geriatric Medicine | DX: J96.01 Acute respiratory failure with hypoxia (principal); Z72.0 Tobacco use | CPT/HCPCS: 94060; 94726; 94729 ==

== ENCOUNTER → 2024-07-19 | Outpatient (CLI) | payer MEDICARE, SELFPAY ==
--- NOTE | 2024-07-19 13:08 | CT_ITS ---
PROCEDURE: LOW DOSE CT LUNG SCREENING REASON FOR EXAM: TOBACCO ABUSE Patient has smoked 2 packs per day for 50 years. TECHNIQUE: Low Dose CT Lung Screening without contrast COMPARISON: None. FINDINGS: PULMONARY NODULES: (Only nodules >6mm are reported) Nodules described below are on series 1 unless otherwise specified. Pulmonary Nodules: No concerning pulmonary nodules. Hardware:None Lymph Nodes:No mediastinal hilar or axillary lymphadenopathy. Heart and Vasculature:Normal heart size. No pericardial effusion.Atherosclerotic calcifications of the thoracic aorta. Thoracic aorta and pulmonary arteries have normal contours; noncontrast technique limits evaluation. Coronary Artery Calcifications: Present Lungs and Airways: Mild emphysematous changes are present. Scarring at the left lung base. Scarring is also seen in the superior segment of the left lower lobe. Pleura:No pleural effusion. No pneumothorax. 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 There is a 11.3 cm x 11.1 cm cyst in the right lobe of the liver. Bones:Degenerative changes of the thoracic spine. Increased kyphosis. CT/Low Dose CT Lung Screening IMPRESSION: 1. BASED ON THE ACR LUNG RADS FOR THE MOST SUSPICIOUS NODULE (IF ANY) DESCRIBE D IN THIS REPORT, THE OVERALL LUNG RADS SCORE IS 2.2 - BENIGN (BASED ON IMAGING FEATURES OR INDOLENT BEHAVIOR). RECOMMEND 12-MON TH SCREENING LDCT.. 2. SMOKING CESSATION COUNSELING IS RECOMMENDED IF THE PATIENT IS STILL SMOKING . 3. OTHER SIGNIFICANT FINDINGSNone. One or more dose reduction techniques were used (e.g., Automated exposure contr ol, adjustment of the mA and/or kV according to patient size, use of iterative reconstruction technique). The following information is provided for reference:Lung-RADS 2022 Assessment C ategories. Additional information involving Lung-RADS is available at www.acr.org. 0-INCOMPLETE 1-NEGATIVE:No nodules or definitely benign nodules. Complete, central, popcorn , or centric ring calcifications OR fat containing 2-BENIGN APPEARANCE (based on imaging features or indolent behavior). Juxtaple ural nodule: < 10mm AND solid; smooth margins; oval, entiform, or triangular shape Solid nodule: <6mm at baseline or new< 4mm Part solid Nodule: < 6mm total mean diameter at baseline Nonsolid nodule:(GGN) < 30mm OR >=30mm stable or slowly growing Airway nodule, subsegmental at baseline, new, or stable Category 3 nodule stabl e or decreased in size at 6-month follow-up CT or Category 3 or 4A nodules that resolve on follow-up OR category 4B findings prov en to be benign following diagnotic work up. 3 - Probably Benign (Based on imaging features or behavior) Solid Nodule: >= 6 to <8mm at baseline OR new 4 to <6mm Part-solid nodule: >= 6mm toal mean diam. with solid component <6mm at baseline OR new < 6mm total mean diam. Non-solid nodule: GGN >= 30mm at baseline or new Atypical pulmonary cyst: Growing cystic component (mean diam.) of thick-walled cyst Category 4A nodule stable or decreased in size at 3-month follow-up CT (excl.ai rway). 4A - Suspicious Solid nodule: >=8 to < 15mm at baseline OR growing < 8mm OR new 6 to < 8mm Part solid nodule: >= 6mm total mean diam. w/ solid component >=6mm to < 8mm at baseline OR new or growing < 4mm solid component Airway nodule, segmental or more proximal at baseline or new Atypical pulmonary cyst: Thick-walled OR multilocular at baseline OR becomes mu ltilocular 4B - Very Suspicious Airway nodule, segmental or more proximal, and stable or growing Solid nodule: >= 15mm at baseline OR new or growing >= 8mm Part solid nodule: Solid component >= 8mm OR new or growing >= 4mm solid compon ent Atypical pulmonary cyst: Thick-walled with growing wall thickness/nodularity OR Growing multilocular (mean diam.) OR Multilocular with increased loculation or new/increased opacity Slow-growing solid or part solid nodule w/ growth over multiple screening exams 4X - Very Suspicious Category 3 or 4 nodules with additional features that increase the suspicion fo r lung cancer. S - Clinically Significant or potentially significant findings (non-lung cancer ) Reading Location: [id number]
== END | disposition home or self-care (01) ==
LOC: CT 13:04
PROVIDERS: PCP Family Medicine Geriatric Medicine; Referring Provider Family Medicine Geriatric Medicine; Visit Provider Family Medicine Geriatric Medicine
DX: J96.01 Acute respiratory failure with hypoxia (principal); F17.210 Nicotine dependence, cigarettes, uncomplicated
CPT/HCPCS: 71271

== ENCOUNTER → 2024-12-11 | Outpatient (CLI) | payer MEDICARE, SELFPAY ==
[2024-12-11 13:36] LABS: Hematocrit 42.1 % (37-47); Hemoglobin 13.6 g/dL (12.0-15.0); Immature Granulocytes Count 0.020 X10^3/uL (0.0-0.0); Mean Corp Hgb Conc 32.3 g/dL (32-36); Mean Corpuscular Volume 93.6 fL (81-99); Mean Platelet Vol. 10.0 fl (6.2-12.0); NRBC Flagged by Analyzer 0 % (0-5); Platelet Count 304 K/mm3 (150-450); RBC Distribution Width CV 13.6 % (11.6-14.6); RBC Distribution Width SD 46.5 fl (35.1-43.9); Red Blood Count 4.50 M/mm3 (4.2-5.4); White Blood Count 6.7 K/mm3 (4.4-11.0)
[2024-12-11 14:46] LABS: AST(SGOT) 22 U/L (<=31); Alanine Aminotransfer ALT/SGPT 13 U/L (<=34); Albumin, Serum 4.0 g/dL (3.4-4.8); Alkaline Phosphatase 69 U/L (35-104); Anion Gap 11 (5-15); BUN 14 mg/dL (4-19); BUN/Creat Ratio 19.1 RATIO (10-20); Calcium,Total 9.5 mg/dL (7.6-11.0); Carbon Dioxide 25.1 mmol/L (21.0-32.0); Chloride 104 mmol/L (98-108); Globulin 2.3 g/dL (2.2-4.2); Glucose 96 mg/dL (70-99); Potassium 3.8 mmol/L (3.3-5.1); Vitamin D,25 Hydroxy 24.2 ng/mL (30-100)
--- OUTSIDE RECORDS SUMMARY | 2024-12-11 19:17 | XMS RPT_ITS | CCD ---
Author Organization [facility] [place] [facility] Team Providers Care Sole Stitcher Hand Name Role Phone Unavailable Primary Care Provider Unavailabl e MIKE GAGE Referring Unavailable MIKE GAGE Attending Unavailable MIKE GAGE Referring Unavailable Juan Jose, Juan David Chi Attending Unavailable Juan Jose, Juan David Chi Referring Unavailable Juan Jose, Juan David Chi Primary Care Unavailable Care Physician, No Primary Primary Care Unava ilable Juan Jose, Juan David Chi Attending Unavailable Juan Jose, Juan David Chi Referring Unavailable TerLaith hurley Attending Unavailable Care Physician, No Primary Primary Care Unava ilable Sharona Sequeira Admitting Unavailable Sharona Sequeira Consulting Unavailable Laith Whelan Consulting Unavailable Sharona Sequeira Attending Unavailable Care Physician, No Primary Primary Care Unava ilable Juan Jose, Juan David Chi Referring Unavailable Juan Jose, Juan David Chi Primary Care Unavailable Maxi Muhammad Attending Unavailable Sharona Sequeira Consulting Unavailable Laith Whelan Attending Unavailable Care Physician, No Primary Primary Care Unava ilable Sharona Sequeira Admitting Unavailable Juan Jose, Juan David Chi Attending Unavailable Juan Jose, Juan David Chi Referring Unavailable Juan Jose, Juan David Chi Primary Care Unavailable Care Physician, No Primary Primary Care Provider Unavailable Dr. Yeison Anderson MD Emergency Provider [phone] Sharona Sequeira MD Attending Provider Hua CARO, Dr. Sharona Turner Admit Provider Dr. Sharona Sequeira MD Other Provider Dr. Laith Whelan DO Attending Provider [phone] Dr. Laith Whelan DO Other Provider Dr. Juan David Ingram MD, Chi Attending Provider Dr. Juan David Ingram MD, Chi Referring Provider Dr. Juan David Ingram MD, Chi Primary Care Provider Medications Current Medications Medication Drug Class(es) Dates Sig (Normalized) Sig (Original) [id number] 200 actuat albuterol 0.09 mg/actuat metered dose inhaler (2 sources) beta2-Adrenergic Agonist Start: take 2 puff(s) by inhalation four times daily as needed for wheezing and dyspnea, then take 2 puff(s) by inhalation every six hours as needed for wheezing and dyspnea Albuterol Sulfate 90 mcg/actuation HFA aerosol inhaler Active 2 NMA INHALATION EVERY 6 HOURS as needed for shortness of breath or wheezing 8.5 May 19, 2024 1:00am Use 2 puffs 4 times a day for 5 days, then use 2 puffs every 6 hours as needed dyspnea methylPREDNISolone 4 mg oral tablet (2 sources) Corticosteroid Start: take 1 tablet by mouth once Methylprednisolone (Medrol (Alhaji)) 4 mg tablets,dose pack Active 4 mg PO per package directions May 19, 2024 1:00am orally per package directions orally per package directions; Problems Active Problems Problem Classification Problem Date Documented Date Episodic/Chronic Cardiac dysrhythmias (2 sources) ECG: sinus tachycardia; Translations: [Tachycardia, unspecified] 05-17-2024 Episodic Fever of unknown origin (1 source) Pyrexia of unknown origin; Translations: [Fever, unspecified] 05-17-2024 Episodic Osteoarthritis (2 sources) Primary arthrosis of first carpometacarpal joints, bilateral; Translations: [Bilateral primary osteoarthritis of first carpometacarpal joints] 11-15-2023 Chronic Other circulatory disease (2 sources) Elevated blood-pressure reading without diagnosis of hypertension; Translations: [Elevated blood-pressure reading, without diagnosis of hypertension] 05-17-2024 Episodic Other injuries and conditions due to external causes (2 sources) Fracture of bone; Translations: [Other injury of unspecified body region, initial encounter] 07-04-2021 Episodic Other lower respiratory disease (1 source) Cough; Translations: [Acute cough] 05-17-2024 Episodic Other lower respiratory disease (1 source) Dyspnea; Translations: [Shortness of breath] 05-17-2024 Episodic Other non-traumatic joint disorders (2 sources) Bilateral wrist pain; Translations: [Pain in right wrist] 11-14-2023 Episodic Other non-traumatic joint disorders (1 source) Pain of right wrist; Translations: [Pain in right wrist] 11-14-2023 Episodic Other screening for suspected conditions (not mental disorders or infectious disease) (1 source) Encounter for screening for other disorder; Translations: [Encounter for screening for other disorder] Onset: 06-27-2024 Episodic Other upper respiratory disease (2 sources) Acute bronchospasm; Translations: [Acute bronchospasm] 05-17-2024 Episodic Residual codes; unclassified (2 sources) Creatinine level - finding 05-17-2024 Episodic Respiratory failure; insufficiency; arrest (adult) (3 sources) Acute respiratory failure with hypoxia; Translations: [Acute hypoxemic respiratory failure] Onset: 07-31-2024 05-17-2024 Episodic Unclassified (1 source) New Onset: 11-14-2023 Viral infection (5 sources) Other specified viral diseases; Translations: [Respiratory syncytial virus infection] Onset: 05-20-2024 05-27-2024 Episodic Past or Other Problems Problem Classification Problem Date Documented Da te Episodic/Chronic Other non-traumatic joint disorders (1 source) Pain in right wrist; Translations: [Pain in both wrists] Onset: 11-14-2023 Episodic Other non-traumatic joint disorders (1 source) Pain in left wrist; Translations: [Pain in both wrists] Onset: 11-14-2023 Episodic Results Test Name Value Interpretation Reference Range Facil ity Low Dose CT Lung Screeningon 07-19-[address] Lung Screening [facility] Imaging Services [address] [place], [place] [id number] Low Dose CT Lung Screening MR#: [id number] Acct: [id number] Name: ERLINDA MONREAL Rep #: [id number] : 1950 F 73 From: Rafiq rouse MD PCP: Dr. Juan David Ingram MD Status: [facility] Study: Low Dose CT Lung Screening Date of Exam: 07/19 Exam# [id number] Ordering Dr: Juan David Ingram MD PROCEDURE: LOW DOSE CT LUNG SCREENING REASON FOR EXAM: TOBACCO ABUSE Patient has smoked 2 packs per day for 50 years. TECHNIQUE: Low Dose CT Lung Screening without contrast COMPARISON: None. FINDINGS: PULMONARY NODULES: (Only nodules >6mm are reported) Nodules described below are on series 1 unless otherwise specified. Pulmonary Nodules: No concerning pulmonary nodules. Hardware:None Lymph Nodes:No mediastinal hilar or axillary lymphadenopathy. Heart and Vasculature:Normal heart size. No pericardial effusion.Atheroscle rotic calcifications of the thoracic aorta. Thoracic aorta and pulmonary arteries have normal contours; noncontrast technique limits evaluation. Coronary Artery Calcifications: Present Lungs and Airways: Mild emphysematous changes are present. Scarring at the left lung base. Scarring is also seen in the superior segment of the left lower lobe. Pleura:No pleural effusion. No pneumothorax. 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 There is a 11.3 cm x 11.1 cm cyst in the right lobe of the liver. Bones:Degenerative changes of the thoracic spine. Increased kyphosis. CT/Low Dose CT Lung Screening IMPRESSION: 1. BASED ON THE ACR LUNG RADS FOR THE MOST SUSPICIOUS NODULE (IF ANY) DESCRIBED IN THIS REPORT, THE OVERALL LUNG RADS SCORE IS 2.2 - BENIGN (BASED ON IMAGING FEATURES OR INDOLENT BEHAVIOR). RECOMMEND 12-MONTH SCREENING LDCT.. 2. SMOKING CESSATION COUNSELING IS RECOMMENDED IF THE PATIENT IS STILL SMOKING. 3. OTHER SIGNIFICANT FINDINGSNone. One or more dose reduction techniques were used (e.g., Automated exposure control, adjustment of the mA and/or kV according to patient size, use of iterative reconstruction technique). The following information is provided for reference:Lung-RADS 2022 Assessment Categories. Additional information involving Lung-RADS is available at www.acr.org. 0-INCOMPLETE 1-NEGATIVE:No nodules or definitely benign nodules. Complete, central, popcorn, or centric ring calcifications OR fat containing 2-BENIGN APPEARANCE (based on imaging features or indolent behavior). Juxtapleural nodule: < 10mm AND solid; smooth margins; oval, entiform, or triangular shape Solid nodule: <6mm at baseline or new< 4mm Part solid Nodule: < 6mm total mean diameter at baseline Nonsolid nodule:(GGN) < 30mm OR >=30mm stable or slowly growing Airway nodule, subsegmental at baseline, new, or stable Category 3 nodule stable or decreased in size at 6-month follow-up CT or Category 3 or 4A nodules that resolve on follow-up OR category 4B findings proven to be benign following diagnotic work up. 3 - Probably Benign (Based on imaging features or behavior) Solid Nodule: >= 6 to <8mm at baseline OR new 4 to <6mm Part-solid nodule: >= 6mm toal mean diam. with solid component <6mm at baseline OR new < 6mm total mean diam. Non-solid nodule: GGN >= 30mm at baseline or new Atypical pulmonary cyst: Growing cystic component (mean diam.) of thick-walled cyst Category 4A nodule stable or decreased in size at 3-month follow-up CT (excl.airway). 4A - Suspicious Solid nodule: >=8 to < 15mm at baseline OR growing < 8mm OR new 6 to < 8mm Part solid nodule: >= 6mm total mean diam. w/ solid component >=6mm to < 8mm at baseline OR new or growing < 4mm solid component Airway nodule, segmental or more proximal at baseline or new Atypical pulmonary cyst: Thick-walled OR multilocular at baseline OR becomes multilocular 4B - Very Suspicious Airway nodule, segmental or more proximal, and stable or growing Solid nodule: >= 15mm at baseline OR new or growing >= 8mm Part solid nodule: Solid component >= 8mm OR new or growing >= 4mm solid component Atypical pulmonary cyst: Thick-walled with growing wall thickness/nodularit y OR Growing multilocular (mean diam.) OR Multilocular with increased loculation or new/increased opacity Slow-growing solid or part solid nodule w/ growth over multiple screening exams 4X - Very Suspicious Category 3 or 4 nodules with additional features that increase the suspicion for lung cancer. S - Clinically Significant or potentially significant findings (non-lung cancer) Reading Location: [id number] CC: Dr. Juan David Ingram MD Conceptor: Signed Normal [facility] 28-JV-Gcfddhc DOrdered By: Cornelio Ingram on 06-12-2024 Vitamin D 25-Hydroxy 20.6 ng/mL [facility] Comment on above: Vitamin D 25(OH) Sta tus Range Deficiency <20 ng/mL (50nmol/L) Insufficiency 20 - 30 ng/mL (50 - 75 nmol/L) Sufficiency 30 - 100 ng/mL (75 - 250 nmol/L) Toxicity >100 ng/mL (>250 nmol/L) Absolute neutrophil countOrd ered By: Juan David Ingram on 06-12-2024 Neutrophils (Bld) [#/Vol] 4.6 10*3/uL 2.0-7.7 [facility] Albumin to globulin ratioOrd ered By: Juan David Ingram on 06-12-2024 Albumin/Globulin [Mass ratio] 0.8 {ratio} Low 0.9-2.4 [facility] Basophil percentageOrdered B y: Juan David Ingram on 06-12-2024 Basophils/100 WBC (Bld) 0.8 % 0-1 [facility] Bilirubin, totalOrdered By: Juan David Ingram on 06-12-2024 Bilirubin [Mass/Vol] 0.60 mg/dL 0.20-1.00 [facility] Comment on above: For patients on eltr ombopag therapy, use of Dimension [place] TBIL is not recommended. Blood urea nitrogen (BUN)/cr eatinine ratioOrdered By: Juan David Ingram on 06-12-2024 Urea nitrogen/Creatinine [Mass ratio] 30.4 mg/mg High 10-20 [facility] CBC W/Diff, Automatedon Absolute Lymph 1.80 X10 3/uL Normal 0.83-4.51 [facility] Comment on above: Performed By: #### M 300.4600, M300.4500 #### [facility] [address] [place], [address] Absolute Neut 4.6 X10 3/uL Normal 2.0-7.7 [facility] Comment on above: Performed By: #### M 300.4600, M300.4500 #### [facility] [address] [place], [address] Basophils/100 WBC (Bld) 0.8 % Normal 0-1 [facility] Comment on above: Performed By: #### M 300.4600, M300.4500 #### [facility] [address] [place], [address] Eosinophils/100 WBC (Bld) 4.3 % Normal 0-5 [facility] Comment on above: Performed By: #### M 300.4600, M300.4500 #### [facility] [address] [place], [address] Erythrocyte distribution width (RBC) [Ratio] 13.4 % Normal 11.6-14.6 [facility] Comment on above: Performed By: #### M 300.4600, M300.4500 #### [facility] [address] [place], [address] Hematocrit (Bld) [Volume fraction] 41.0 % Normal 37-47 [facility] Comment on above: Performed By: #### M 300.4600, M300.4500 #### [facility] [address] [place], [address] Hemoglobin (Bld) [Mass/Vol] 13.2 g/dL Normal 12.0-15.0 [facility] Comment on above: Performed By: #### M 300.4600, M300.4500 #### [facility] [address] [place], [address] IG% 0.400 Normal 0.0-0.9 [facility] Comment on above: Result Comment: IG% - Immature Granulocytes (promyelocytes, myelocytes and metamyelocytes) > 1% indicates that a LEFT SHIFT is Present. Performed By: #### M 300.4600, M300.4500 #### [facility] [address] [place], [address] Lymphocytes/100 WBC (Bld) 25.0 % Normal 19-41 [facility] Comment on above: Performed By: #### M 300.4600, M300.4500 #### [facility] [address] [place], [address] MCH (RBC) [Entitic mass] 29.9 pg Normal 27.0-32.0 [facility] Comment on above: Performed By: #### M 300.4600, M300.4500 #### [facility] [address] [place], [address] MCHC (RBC) [Mass/Vol] 32.2 g/dL Normal 32-36 [facility] Comment on above: Performed By: #### M 300.4600, M300.4500 #### [facility] [address] [place], [address] MCV (RBC) [Entitic vol] 92.8 fL Normal 81-99 [facility] Comment on above: Performed By: #### M 300.4600, M300.4500 #### [facility] [address] [place], [address] Monocytes/100 WBC (Bld) 6.1 % Normal 0-10 [facility] Comment on above: Performed By: #### M 300.4600, M300.4500 #### [facility] [address] [place], [address] Neutrophils/100 WBC (Bld) 63.4 % Normal 47-70 [facility] Comment on above: Performed By: #### M 300.4600, M300.4500 #### [facility] [address] [place], [address] Nucleated RBC (Bld) [#/Vol] 0 10*3/uL Normal 0-5 [facility] Comment on above: Performed By: #### M 300.4600, M300.4500 #### [facility] [address] [place], [address] Platelet mean volume (Bld) [Entitic vol] 9.8 fL Normal 6.2-12.0 [facility] Comment on above: Performed By: #### M 300.4600, M300.4500 #### [facility] [address] [place], [address] Platelets (Bld) [#/Vol] 283 10*3/uL Normal 150-450 [facility] Comment on above: Performed By: #### M 300.4600, M300.4500 #### [facility] [address] [place], [address] RBC (Bld) [#/Vol] 4.42 10*6/uL Normal 4.2-5.4 [facility] Comment on above: Performed By: #### M 300.4600, M300.4500 #### [facility] [address] [place], [address] RDW SD 45.7 fl High 35.1-43.9 [facility] Comment on above: Performed By: #### M 300.4600, M300.4500 #### [facility] [address] [place], [address] WBC (Bld) [#/Vol] 7.2 10*3/uL Normal 4.4-11.0 [facility] Comment on above: Performed By: #### M 300.4600, M300.4500 #### [facility] [address] [place], [address] Carbon dioxide measurementOr dered By: Juan David Ingram on 06-12-2024 CO2 [Moles/Vol] 26.0 mmol/L 21.0-32.0 [facility] Chloride measurementOrdered By: Juan David Ingram on 06-12-2024 Chloride [Moles/Vol] 106 mmol/L 98-107 [facility] Comprehensive Metabolic Prof ilon 06-12-2024 Albumin [Mass/Vol] 3.1 g/dL Low 3.2-5.0 [facility] Comment on above: Performed By: #### M 300.4600, M300.4500 #### [facility] [address] [place], [address] Albumin/Globulin [Mass ratio] 0.8 {ratio} Low 0.9-2.4 [facility] Comment on above: Performed By: #### M 300.4600, M300.4500 #### [facility] [address] [place], [address] ALK P 77 U/L Normal 45-117 [facility] Comment on above: Performed By: #### M 300.4600, M300.4500 #### [facility] [address] [place], [address] ALT [Catalytic activity/Vol] 16 U/L Normal 13-56 [facility] Comment on above: Performed By: #### M 300.4600, M300.4500 #### [facility] [address] [place], [address] AST [Catalytic activity/Vol] 17 U/L Normal 15-37 [facility] Comment on above: Performed By: #### M 300.4600, M300.4500 #### [facility] [address] [place], [address] Bilirubin [Mass/Vol] 0.60 mg/dL Normal 0.20-1.00 [facility] Comment on above: Result Comment: For patients on eltrombopag therapy, use of Dimension [place] TBIL is not recommended. Performed By: #### M 300.4600, M300.4500 #### [facility] [address] [place], [address] BUN/CRE 30.4 RATIO High 10-20 [facility] Comment on above: Performed By: #### M 300.4600, M300.4500 #### [facility] [address] [place], [address] CA,Total 9.4 mg/dL Normal 8.5-10.1 [facility] Comment on above: Performed By: #### M 300.4600, M300.4500 #### [facility] [address] [place], [address] Chloride [Moles/Vol] 106 mmol/L Normal 98-107 [facility] Comment on above: Performed By: #### M 300.4600, M300.4500 #### [facility] [address] [place], [address] CO2 [Moles/Vol] 26.0 mmol/L Normal 21.0-32.0 [facility] Comment on above: Performed By: #### M 300.4600, M300.4500 #### [facility] [address] [place], [address] Creatinine [Mass/Vol] 0.69 mg/dL Normal 0.55-1.02 [facility] Comment on above: Result Comment: The validity of the calculated GFR GFRAA in patients over 70 years has not been determined. Clinical correlation is essential. Performed By: #### M 300.4600, M300.4500 #### [facility] [address] [place], [address] EST GFR - AA 107 mL/min Normal >60 [facility] Comment on above: Result Comment: Afri can Eritrean GFR Calc Performed By: #### M 300.4600, M300.4500 #### [facility] [address] [place], [address] GAP 7 Normal 5-15 [facility] Comment on above: Performed By: #### M 300.4600, M300.4500 #### [facility] [address] [place], [address] GFR/1.73 sq M.predicted among non-blacks MDRD (S/P/Bld) [Vol rate/Area] 88 mL/min/{1.73_m2} Normal >60 [facility] Comment on above: Result Comment: Non- GFR Calc Performed By: #### M 300.4600, M300.4500 #### [facility] [address] [place], [address] Globulin (S) [Mass/Vol] 3.7 g/dL Normal 2.2-4.2 [facility] Comment on above: Performed By: #### M 300.4600, M300.4500 #### [facility] [address] [place], [address] Glucose [Mass/Vol] 105 mg/dL Normal 74-106 [facility] Comment on above: Result Comment: Fast ing Glucose result from 100 to 125 mg/dL suggests IMPAIRED HOMEOSTASIS per A.D.A. criteria. Performed By: #### M 300.4600, M300.4500 #### [facility] [address] [place], [address] Potassium [Moles/Vol] 3.8 mmol/L Normal 3.5-5.1 [facility] Comment on above: Performed By: #### M 300.4600, M300.4500 #### [facility] [address] [place], [address] Sodium [Moles/Vol] 139 mmol/L Normal 136-145 [facility] Comment on above: Performed By: #### M 300.4600, M300.4500 #### [facility] [address] [place], [address] T PROT 6.8 g/dL Normal 6.4-8.2 [facility] Comment on above: Performed By: #### M 300.4600, M300.4500 #### [facility] [address] [place], [address] Urea nitrogen [Mass/Vol] 21 mg/dL High 7-18 [facility] Comment on above: Performed By: #### M 300.4600, M300.4500 #### [facility] [address] [place], [address] Eosinophil percentageOrdered By: [facility] Juan Jose on 06-12-2024 Eosinophils/100 WBC (Bld) 4.3 % 0-5 [facility] Erythrocyte distribution wid th ratioOrdered By: [facility] on 06-[facility]-2024 Erythrocyte distribution width (RBC) [Ratio] 13.4 % 11.6-14.6 [facility] Erythrocyte distribution wid th standard deviationOrdered By: [facility] on 06-12-2024 Erythrocyte distribution width (RBC) [Entitic vol] 45.7 fL High 35.1-43.9 [facility] Estimated glomerular filtrat ion rate (GFR) AmericanOrdered By: [facility] on 06-12-2024 Estimated GFR (MDRD) Amer 107 mL/min >60 [facility] Comment on above: GFR Calc Glomerular filtration rate ( GFR) estimationOrdered By: [facility] on 06-12-2024 Estimated GFR (MDRD) Non-Af Amer 88 mL/min >60 [facility] Comment on above: Non- GFR Calc Glucose measurementOrdered B y: Juan David Ingram on 06-12-2024 Glucose [Mass/Vol] 105 mg/dL 74-106 [facility] Comment on above: Fasting Glucose resu lt from 100 to 125 mg/dL suggests IMPAIRED HOMEOSTASIS per A.D.A. criteria. Hematocrit Auto (Bld) [Volum e fraction]Ordered By: [facility] on 06-12-2024 Hematocrit (Bld) [Volume fraction] 41.0 % 37-47 [facility] Hemoglobin measurementOrdere d By: [facility] on 06-12-2024 Hemoglobin (Bld) [Mass/Vol] 13.2 g/dL 12.0-15.0 [facility] Hepatitis C Antibodyon 06-12 Hepatitis C AB Non-Reactive Normal Nonreactive [facility] Comment on above: Result Comment: Non Reactive: < 0.8 Equivocal: >/= 0.8 to < 1.0 Reactive: >/= 1.0 The CDC requires that a reactive/equivocal HCV antibody result be sent out for confirmation. HCV Quant by PCR testing. Performed By: #### M 300.1312, M300.3710 #### [facility] [place], [address] Hepatitis C virus antibody a ssayOrdered By: Juan David Ingram on 06-12-2024 Hepatitis C Antibody Non-Reactive Nonreactive [facility] Comment on above: Non Reactive: < 0.8 Equivocal: >/= 0.8 to < 1.0 Reactive: >/= 1.0The [facility] requires that a reactive/equivocal HCV antibody result be sent out for confirmation. HCV Quant by PCR testing. High density lipoprotein (HD L) measurementOrdered By: Juan David Ingram on 06-12-2024 Cholesterol in HDL [Mass/Vol] 70 mg/dL >40 [facility] Comment on above: The drugs N-Acetylcy steine and Metamizole may falsely depress this assay. Reference Range HDL <40 mg/dL Low HDL Cholesterol HDL >or= 60 mg/dL High HDL Cholesterol Immature granulocytes/100 WB C Auto (Bld)Ordered By: Juan David Ingram on 06-12-2024 Immature granulocytes/100 WBC (Bld) 0.400 % 0.0-0.9 [facility] Comment on above: IG% - Immature Granu locytes (promyelocytes, myelocytes and metamyelocytes) > 1% indicates that a LEFT SHIFT is Present. Laboratory - Chemistry and C hemistry - challengeOrdered By: Juan David Ingram on 06-12-2024 AST [Catalytic activity/Vol] 17 U/L 15-37 [facility] Lipid Profileon 06-12-2024 Cholesterol [Mass/Vol] 235 mg/dL High [address] [facility] Comment on above: Result Comment: <200 mg/dL Desirable 200-240 mg/dL Borderline >240 mg/dL High Risk Performed By: #### M 300.4600, M300.4500 #### [facility] [address] [place], [address] Cholesterol in HDL [Mass/Vol] 70 mg/dL Normal [facility] Comment on above: Result Comment: The drugs N-Acetylcysteine and Metamizole may falsely depress this assay. Reference Range HDL <40 mg/dL Low HDL Cholesterol HDL >or= 60 mg/dL High HDL Cholesterol Performed By: #### M 300.4600, M300.4500 #### [facility] [address] [place], [address] Cholesterol in LDL [Mass/Vol] 148 mg/dL High 0-130 [facility] Comment on above: Performed By: #### M 300.4600, M300.4500 #### [facility] [address] [place], [address] Cholesterol in VLDL [Mass/Vol] 17 mg/dL Normal 5-40 [facility] Comment on above: Performed By: #### M 300.4600, M300.4500 #### [facility] [address] [place], [address] Triglyceride [Mass/Vol] 84 mg/dL Normal [facility] Comment on above: Result Comment: The drugs N-Acetylcysteine and Metamizole may falsely depress this assay. Serum Triglycerides Reference Interval Normal <150 mg/dL Borderline high 150 - 199 mg/dL High 200 - 499 mg/dL Very High > or = 500 mg/dL Performed By: #### M 300.4600, M300.4500 #### [facility] [address] [place], [address] Low density lipoprotein (LDL ) cholesterol measurementOrdered By: Juan David Ingram on 06-12-2024 Cholesterol in LDL [Mass/Vol] 148 mg/dL High 0-130 [facility] Lymphocytes Auto (Unsp spec) [#/Vol]Ordered By: Juan David Ingram on 06-12-2024 Lymphocytes (Bld) [#/Vol] 1.80 10*3/uL 0.83-4.51 [facility] Lymphocytes/100 WBC Auto (Un sp spec)Ordered By: Juan David Ingram on 06-12-2024 Lymphocytes/100 WBC (Bld) 25.0 % 19-41 [facility] MCV (mean corpuscular volume ) determinationOrdered By: Juan David Ingram on 06-12-2024 MCV (RBC) [Entitic vol] 92.8 fL 81-99 [facility] Mean corpuscular hemoglobin (MCH) determinationOrdered By: Juan David Ingram on 06-12-2024 MCH (RBC) [Entitic mass] 29.9 pg 27.0-32.0 [facility] Mean corpuscular hemoglobin concentration (MCHC) determinationOrdered By: Juan David Ingram on 06-12-2024 MCHC (RBC) [Mass/Vol] 32.2 g/dL 32-36 [facility] Mean platelet volume determi nationOrdered By: Juan David Ingram on 06-12-2024 Platelet mean volume (Bld) [Entitic vol] 9.8 fL 6.2-12.0 [facility] Monocyte percentageOrdered B y: Juan David Ingram on 06-12-2024 Monocytes/100 WBC (Bld) 6.1 % 0-10 [facility] Neutrophil percentageOrdered By: Juan David Ingram on 06-12-2024 Neutrophils/100 WBC (Bld) 63.4 % 47-70 [facility] Nucleated red blood cell per centageOrdered By: Juan David Ingram on 06-12-2024 Nucleated RBC/100 WBC (Bld) [Ratio] 0 % 0-5 [facility] Platelet countOrdered By: Atif Ingram on 06-12-2024 Platelets (Bld) [#/Vol] 283 10*3/uL 150-450 [facility] Potassium measurementOrdered By: Juan David Ingram 06-12-2024 Potassium [Moles/Vol] 3.8 mmol/L 3.5-5.1 [facility] RBC Auto (Bld) [#/Vol]Ordere d By: Juan David Ingram on 06-12-2024 RBC (Bld) [#/Vol] 4.42 10*6/uL 4.2-5.4 [facility] Serum anion gap measurementO rdered By: Juan David Ingram on 06-12-2024 Anion gap [Moles/Vol] 7 mmol/L 5-15 [facility] Serum globulin measurementOr dered By: Juan David Ingram 06-12-2024 Globulin (S) [Mass/Vol] 3.7 g/dL 2.2-4.2 [facility] Serum or plasma alanine grant otransferase (ALT) measurementOrdered By: Juan David Ingram 06-12-2024 ALT [Catalytic activity/Vol] 16 U/L 13-56 [facility] Serum or plasma albumin zari urement (mass/volume)Ordered By: Juan David Ingram on 06-12-2024 Albumin [Mass/Vol] 3.1 g/dL Low 3.2-5.0 [facility] Serum or plasma alkaline keven sphatase measurementOrdered By: Juan David Ingram on 06-12-2024 ALP [Catalytic activity/Vol] 77 U/L 45-117 [facility] Serum or plasma calcium zari urement (mass/volume)Ordered By: Juan David Ingram on 06-12-2024 Calcium [Mass/Vol] 9.4 mg/dL 8.5-10.1 [facility] Serum or plasma cholesterol measurement (mass/volume)Ordered By: Juan David Ingram on 06-12-2024 Cholesterol [Mass/Vol] 235 mg/dL High <[address] [facility] Comment on above: <200 mg/dL Desirable 200-240 mg/dL Borderline >240 mg/dL High Risk Serum or plasma creatinine m easurement (mass/volume)Ordered By: Juan David Ingram on 06-12-2024 Creatinine [Mass/Vol] 0.69 mg/dL 0.55-1.02 [facility] Comment on above: The validity of the calculated GFR & GFRAA in patients over 70 years has not been determined. Clinical correlation is essential. Serum or plasma urea nitroge n measurement (mass/volume)Ordered By: Juan David Ingram on 06-12-2024 Urea nitrogen [Mass/Vol] 21 mg/dL High 7-18 [facility] Sodium levelOrdered By: Juan David Ingram on 06-12-2024 Sodium [Moles/Vol] 139 mmol/L 136-145 [facility] TSH QnOrdered By: Juan David Ingram o n 06-12-2024 Thyroid Stimulating Hormone (TSH) 1.540 uIU/mL 0.358-3.740 [facility] Thyroid Stim Hormone (TSH)on 06-12-2024 TSH 1.540 uIU/mL Normal 0.358-3.740 [facility] Comment on above: Performed By: #### M 300.8255, M300.2700 #### [facility], [address] Total proteinOrdered By: Juan David Ingram on 06-12-2024 Protein [Mass/Vol] 6.8 g/dL 6.4-8.2 [facility] Triglycerides measurementOrd ered By: Juan David Ingram on 06-12-2024 Triglyceride [Mass/Vol] 84 mg/dL <199 [facility] Comment on above: The drugs N-Acetylcy steine and Metamizole may falsely depress this assay.Serum Triglycerides Reference Interval Normal <150 mg/dL Borderline high 150 - 199 mg/dL High 200 - 499 mg/dL Very High > or = 500 mg/dL Very low density lipoprotein (VLDL) cholesterol measurementOrdered By: Juan David Ingram on 06-12-2024 VLDL Cholesterol 17 mg/dL 5-40 [facility] Vitamin D,25 Hydroxyon 06-12 Vitamin D 25-OH 20.6 ng/mL Normal [facility] Comment on above: Result Comment: Aline min D 25(OH) Status Range Deficiency <20 ng/mL (50nmol/L) Insufficiency 20 - 30 ng/mL (50 - 75 nmol/L) Sufficiency 30 - 100 ng/mL (75 - 250 nmol/L) Toxicity >100 ng/mL (>250 nmol/L) Performed By: #### M 300.4600, M300.4500 #### [facility] [address] [place], [address] White blood cell (WBC) count Ordered By: Juan David Ingram on 06-12-2024 WBC (Bld) [#/Vol] 7.2 10*3/uL 4.4-11.0 [facility] Discharge Instructionon 05-09 Discharge Instruction [facility] Medical Records Department [address] [place] [address] Instructions for Home/Discharge Instructions 05/19/24 1312 MR#: [id number] Acct: [id number] Name: ERLINDA MONREAL Rep #: [id number] : 1950 73 From: Laith Whelan DO PCP: Care Physician,No Primary Status:ADM IN Discharge Instructions Diet Discharge Diet: No restrictions DC O2, CPAP, BIPAP needs RN Home O2 Qualification: Home O2 Qualification: Is the patient on home oxygen No 05/19/24 10:24 Home O2 Qualification: AT REST 1- Pulse Ox at rest 87 05/19/24 10:24 2- Pulse Ox at rest 95 05/19/24 10:24 2- Oxygen Flow Rate at rest 2 05/19/24 10:24 Home O2 Qualification: WITH AMBULATION 1- Pulse Ox with ambulation 94 05/19/24 10:24 1- Oxygen Flow Rate with 2 05/19/24 10:24 ambulation Home O2 Discharge instructions: Yes Type of respiratory needs?: Oxygen Oxygen frequency: Continuous Continuous oxygen liters per minute: 2 L Dressing / Incision Discharge Activity: Return to Normal Activity Weight Bearing Status: Full weight bearing Follow Up Care Test Results: Test results from this visit will be discussed in further detail at your follow-up appointment, if applicable. Discharge Plan Admission Admit Date/Time: 05/17/24 19:12 Primary Reason for Your Visit: respiratory failure Attending Provider: Laith Whelan Primary Care Provider: Care Physician,No Primary Consulting Providers: Sharona Sequeira Instructions Additional Instructions / Restrictions: Follow-up with a primary care physician in 2 to 3 weeks Discharge Orders/Prescription s Prescriptions: New methylprednisolone [Medrol (Alhaji)] 4 mg tablets,dose pack 4 mg PO PER PKG DIR Qty: 21 0RF Rx Instructions: orally per package directions orally per package directions; albuterol sulfate 90 mcg/actuation HFA aerosol inhaler 2 puff inhalation Q6H PRN (Reason: shortness of breath or wheezing) Qty: 8.5 0RF Rx Instructions: Use 2 puffs 4 times a day for 5 days, then use 2 puffs every 6 hours as needed dyspnea Referrals / Follow Up: Care Physician,No Primary [Primary Care Provider] - Disposition Disposition (needs filled in before D/C Order can be placed): Home, Self Care 05/19/24 1318 Laith Whelan DO CC: Dr. Sharona Sequeira MD; No Primary Care Physician Signed Normal [facility] Absolute neutrophil countOrd ered By: Sharona Sequeira on 05-18-2024 Neutrophils (Bld) [#/Vol] 11.7 10*3/uL High 2.0-7.7 [facility] Albumin to globulin ratioOrd ered By: Sharona Sequeira on 05-18-2024 Albumin/Globulin [Mass ratio] 0.8 {ratio} Low 0.9-2.4 [facility] Basophil percentageOrdered B y: Sharona Hua on 05-18-2024 Basophils/100 WBC (Bld) 0.3 % 0-1 [facility] Bilirubin, totalOrdered By: Sharona Hua on 05-18-2024 Bilirubin [Mass/Vol] 0.80 mg/dL 0.20-1.00 [facility] Comment on above: For patients on eltr ombopag therapy, use of Dimension [place] TBIL is not recommended. Blood urea nitrogen (BUN)/cr eatinine ratioOrdered By: Sharona Hua on 05-18-2024 Urea nitrogen/Creatinine [Mass ratio] 25.0 mg/mg High 10-20 [facility] CBC W/Diff, Automatedon 05-09 Absolute Lymph 1.06 X10 3/uL Normal 0.83-4.51 [facility] Comment on above: Performed By: #### M 300.4600, M300.4500 #### [facility] [address] [place], [address] Absolute Neut 11.7 X10 3/uL High 2.0-7.7 [facility] Comment on above: Performed By: #### M 300.4600, M300.4500 #### [facility] [address] [place], [address] Basophils/100 WBC (Bld) 0.3 % Normal 0-1 [facility] Comment on above: Performed By: #### M 300.4600, M300.4500 #### [facility] [address] [place], [address] Eosinophils/100 WBC (Bld) 7.1 % High 0-5 [facility] Comment on above: Performed By: #### M 300.4600, M300.4500 #### [facility] [address] [place], [address] Erythrocyte distribution width (RBC) [Ratio] 13.3 % Normal 11.6-14.6 [facility] Comment on above: Performed By: #### M 300.4600, M300.4500 #### [facility] [address] [place], [address] Hematocrit (Bld) [Volume fraction] 42.2 % Normal 37-47 [facility] Comment on above: Performed By: #### M 300.4600, M300.4500 #### [facility] [address] [place], [address] Hemoglobin (Bld) [Mass/Vol] 14.1 g/dL Normal 12.0-15.0 [facility] Comment on above: Performed By: #### M 300.4600, M300.4500 #### [facility] [address] [place], [address] IG% 0.800 Normal 0.0-0.9 [facility] Comment on above: Result Comment: IG% - Immature Granulocytes (promyelocytes, myelocytes and metamyelocytes) > 1% indicates that a LEFT SHIFT is Present. Performed By: #### M 300.4600, M300.4500 #### [facility] [address] [place], [address] Lymphocytes/100 WBC (Bld) 7.4 % Low 19-41 [facility] Comment on above: Performed By: #### M 300.4600, M300.4500 #### [facility] [address] [place], [address] MCH (RBC) [Entitic mass] 30.8 pg Normal 27.0-32.0 [facility] Comment on above: Performed By: #### M 300.4600, M300.4500 #### [facility] [address] [place], [address] MCHC (RBC) [Mass/Vol] 33.4 g/dL Normal 32-36 [facility] Comment on above: Performed By: #### M 300.4600, M300.4500 #### [facility] [address] [place], [address] MCV (RBC) [Entitic vol] 92.1 fL Normal 81-99 [facility] Comment on above: Performed By: #### M 300.4600, M300.4500 #### [facility] [address] [place], [address] Monocytes/100 WBC (Bld) 2.7 % Normal 0-10 [facility] Comment on above: Performed By: #### M 300.4600, M300.4500 #### [facility] [address] [place], [address] Neutrophils/100 WBC (Bld) 81.7 % High 47-70 [facility] Comment on above: Performed By: #### M 300.4600, M300.4500 #### [facility] [address] [place], [address] Nucleated RBC (Bld) [#/Vol] 0 10*3/uL Normal 0-5 [facility] Comment on above: Performed By: #### M 300.4600, M300.4500 #### [facility] [address] [place], [address] Platelet mean volume (Bld) [Entitic vol] 9.9 fL Normal 6.2-12.0 [facility] Comment on above: Performed By: #### M 300.4600, M300.4500 #### [facility] [address] [place], [address] Platelets (Bld) [#/Vol] 219 10*3/uL Normal 150-450 [facility] Comment on above: Performed By: #### M 300.4600, M300.4500 #### [facility] [address] [place], [address] RBC (Bld) [#/Vol] 4.58 10*6/uL Normal 4.2-5.4 [facility] Comment on above: Performed By: #### M 300.4600, M300.4500 #### [facility] [address] [place], [address] RDW SD 45.1 fl High 35.1-43.9 [facility] Comment on above: Performed By: #### M 300.4600, M300.4500 #### [facility] [address] [place], [address] WBC (Bld) [#/Vol] 14.3 10*3/uL High 4.4-11.0 [facility] Comment on above: Performed By: #### M 300.4600, M300.4500 #### [facility] [address] [place], [address] Carbon dioxide measurementOr dered By: Sharona Sequeira on 05-18-2024 CO2 [Moles/Vol] 22.0 mmol/L 21.0-32.0 [facility] Chloride measurementOrdered By: Sharona Sequeira on 05-18-2024 Chloride [Moles/Vol] 107 mmol/L 98-107 [facility] Comprehensive Metabolic Prof ilon 05-18-2024 Albumin [Mass/Vol] 2.8 g/dL Low 3.2-5.0 [facility] Comment on above: Performed By: #### M 300.4600, M300.4500 #### [facility] [address] [place], [address] Albumin/Globulin [Mass ratio] 0.8 {ratio} Low 0.9-2.4 [facility] Comment on above: Performed By: #### M 300.4600, M300.4500 #### [facility] [address] [place], [address] ALK P 83 U/L Normal 45-117 [facility] Comment on above: Performed By: #### M 300.4600, M300.4500 #### [facility] [address] [place], [address] ALT [Catalytic activity/Vol] 21 U/L Normal 13-56 [facility] Comment on above: Performed By: #### M 300.4600, M300.4500 #### [facility] [address] [place], [address] AST [Catalytic activity/Vol] 30 U/L Normal 15-37 [facility] Comment on above: Performed By: #### M 300.4600, M300.4500 #### [facility] [address] [place], [address] Bilirubin [Mass/Vol] 0.80 mg/dL Normal 0.20-1.00 [facility] Comment on above: Result Comment: For patients on eltrombopag therapy, use of Dimension [place] TBIL is not recommended. Performed By: #### M 300.4600, M300.4500 #### [facility] [address] [place], [address] BUN/CRE 25.0 RATIO High 10-20 [facility] Comment on above: Performed By: #### M 300.4600, M300.4500 #### [facility] [address] [place], [address] CA,Total 9.0 mg/dL Normal 8.5-10.1 [facility] Comment on above: Performed By: #### M 300.4600, M300.4500 #### [facility] [address] [place], [address] Chloride [Moles/Vol] 107 mmol/L Normal 98-107 [facility] Comment on above: Performed By: #### M 300.4600, M300.4500 #### [facility] [address] [place], [address] CO2 [Moles/Vol] 22.0 mmol/L Normal 21.0-32.0 [facility] Comment on above: Performed By: #### M 300.4600, M300.4500 #### [facility] [address] [place], [address] Creatinine [Mass/Vol] 0.80 mg/dL Normal 0.55-1.02 [facility] Comment on above: Result Comment: The validity of the calculated GFR GFRAA in patients over 70 years has not been determined. Clinical correlation is essential. Performed By: #### M 300.4600, M300.4500 #### [facility] [address] [place], [address] ECRCL 48.80 ml/min Normal [facility] Comment on above: Performed By: #### M 300.4600, M300.4500 #### [facility] [address] [place], [address] EST GFR - AA 90 mL/min Normal >60 [facility] Comment on above: Result Comment: Afri can Erit[place] GFR Calc Performed By: #### M 300.4600, M300.4500 #### [facility] [address] [place], [address] GAP 6 Normal 5-15 [facility] Comment on above: Performed By: #### M 300.4600, M300.4500 #### [facility] [address] [place], [address] GFR/1.73 sq M.predicted among non-blacks MDRD (S/P/Bld) [Vol rate/Area] 75 mL/min/{1.73_m2} Normal >60 [facility] Comment on above: Result Comment: Non- GFR Calc Performed By: #### M 300.4600, M300.4500 #### [facility] [address] [place], [address] Globulin (S) [Mass/Vol] 3.7 g/dL Normal 2.2-4.2 [facility] Comment on above: Performed By: #### M 300.4600, M300.4500 #### [facility] [address] [place], [address] Glucose [Mass/Vol] 193 mg/dL High 74-106 [facility] Comment on above: Result Comment: Fast ing Glucose result greater than or equal to 126 mg/dL suggests DIABETES MELLITUS per A.D.A. criteria. Performed By: #### M 300.4600, M300.4500 #### [facility] [address] [place], [address] Potassium [Moles/Vol] 4.0 mmol/L Normal 3.5-5.1 [facility] Comment on above: Performed By: #### M 300.4600, M300.4500 #### [facility] [address] [place], [address] Sodium [Moles/Vol] 135 mmol/L Low 136-145 [facility] Comment on above: Performed By: #### M 300.4600, M300.4500 #### [facility] [address] [place], [address] T PROT 6.5 g/dL Normal 6.4-8.2 [facility] Comment on above: Performed By: #### M 300.4600, M300.4500 #### [facility] [address] [place], [address] Urea nitrogen [Mass/Vol] 20 mg/dL High 7-18 [facility] Comment on above: Performed By: #### M 300.4600, M300.4500 #### [facility] [address] [place], [address] Eosinophil percentageOrdered By: Sharona Sequeira on 05-18-2024 Eosinophils/100 WBC (Bld) 7.1 % High 0-5 [facility] Erythrocyte distribution wid th ratioOrdered By: Sharona Sequeira on 05-18-2024 Erythrocyte distribution width (RBC) [Ratio] 13.3 % 11.6-14.6 [facility] Erythrocyte distribution wid th standard deviationOrdered By: Sharona Hua on 05-18-2024 Erythrocyte distribution width (RBC) [Entitic vol] 45.1 fL High 35.1-43.9 [facility] Estimated glomerular filtrat ion rate (GFR) AmericanOrdered By: Sharona Sequeira on 05-18-2024 Estimated GFR (MDRD) Amer 90 mL/min >60 [facility] Comment on above: GFR Calc Estimation of creatinine gracie aranceOrdered By: Sharona Sequeira on 05-18-2024 Estimated Creatinine Clearance Calc 48.80 ml/min [facility] Glomerular filtration rate ( GFR) estimationOrdered By: [facility] Hua on 05-18-2024 Estimated GFR (MDRD) Non-Af Amer 75 mL/min >60 [facility] Comment on above: Non- GFR Calc Glucose measurementOrdered B y: Sharona Hau on 05-18-2024 Glucose [Mass/Vol] 193 mg/dL High 74-106 [facility] Comment on above: Fasting Glucose resu lt greater than or equal to 126 mg/dL suggests DIABETES MELLITUS per A.D.A. criteria. Hematocrit Auto (Bld) [Volum e fraction]Ordered By: Sharona Sequeira on 05-18-2024 Hematocrit (Bld) [Volume fraction] 42.2 % 37-47 [facility] Hemoglobin A1con 05-18-2024 HbA1c (Bld) [Mass fraction] 5.6 % Normal 3.8-5.6 [facility] Comment on above: Result Comment: Norm al < 5.7 % Prediabetic 5.7 - 6.4 % Diabetic >or= 6.5 % Please note range changes. Performed By: #### M 300.8015, M300.2463 #### [facility] [address] [place], [address] Hemoglobin A1c percentageOrd ered By: Sharona Sequeira on 05-18-2024 HbA1c (Bld) [Mass fraction] 5.6 % 3.8-5.6 [facility] Comment on above: Normal < 5.7 % Predi abetic 5.7 - 6.4 % Diabetic >or= 6.5 % Please note range changes. Hemoglobin measurementOrdere d By: Sharona Sequeira on 05-18-2024 Hemoglobin (Bld) [Mass/Vol] 14.1 g/dL 12.0-15.0 [facility] Immature granulocytes/100 WB C Auto (Bld)Ordered By: Sharona Sequeira on 05-18-2024 Immature granulocytes/100 WBC (Bld) 0.800 % 0.0-0.9 [facility] Comment on above: IG% - Immature Granu locytes (promyelocytes, myelocytes and metamyelocytes) > 1% indicates that a LEFT SHIFT is Present. L. pneumophila Ag Ql (U)Orde red By: Sharona Sequeira on 05-18-2024 Legionella Antigen [facility] - Chemistry and C hemistry - challengeOrdered By: Sharona Sequeira on 05-18-2024 AST [Catalytic activity/Vol] 30 U/L 15-37 [facility] Legionella Antigen Urineon 0 05-18-2024 LEGU URINE, CLEAN CATCH Legionella Antigen result interpretation: L pneumo Ag Ur Ql Negative Presumptive negative for Legionella pneumophila serogroup 1 antigen in urine, suggesting no recent or current infection. Legionella Ag, Urine Negative (See interpretation below) Normal [facility] Comment on above: Performed By: #### M 300.9060, M300.4500 #### [facility] [address] [place] [address]. [place], [place], [address] Lymphocytes Auto (Unsp spec) [#/Vol]Ordered By: Sharona Sequeira on 05-18-2024 Lymphocytes (Bld) [#/Vol] 1.06 10*3/uL 0.83-4.51 [facility] Lymphocytes/100 WBC Auto (Un sp spec)Ordered By: Sharona Sequeira on 05-18-2024 Lymphocytes/100 WBC (Bld) 7.4 % Low 19-41 [facility] MCV (mean corpuscular volume ) determinationOrdered By: Sharona Sequeira on 05-18-2024 MCV (RBC) [Entitic vol] 92.1 fL 81-99 [facility] Mean corpuscular hemoglobin (MCH) determinationOrdered By: on 05-18-2024 MCH (RBC) [Entitic mass] 30.8 pg 27.0-32.0 [facility] Mean corpuscular hemoglobin concentration (MCHC) determinationOrdered By: on 05-18-2024 MCHC (RBC) [Mass/Vol] 33.4 g/dL 32-36 [facility] Mean platelet volume determi nationOrdered By: White on 05-18-2024 Platelet mean volume (Bld) [Entitic vol] 9.9 fL 6.2-12.0 [facility] Monocyte percentageOrdered B y: White on 05-18-2024 Monocytes/100 WBC (Bld) 2.7 % 0-10 [facility] Neutrophil percentageOrdered By: White on 05-18-2024 Neutrophils/100 WBC (Bld) 81.7 % High 47-70 [facility] Nucleated red blood cell per centageOrdered By: White on 05-18-2024 Nucleated RBC/100 WBC (Bld) [Ratio] 0 % 0-5 [facility] Platelet countOrdered By: Lesli palacios Hua on 05-18-2024 Platelets (Bld) [#/Vol] 219 10*3/uL 150-450 [facility] Potassium measurementOrdered By: on 05-18-2024 Potassium [Moles/Vol] 4.0 mmol/L 3.5-5.1 [facility] RBC Auto (Bld) [#/Vol]Ordere d By: on 05-18-2024 RBC (Bld) [#/Vol] 4.58 10*6/uL 4.2-5.4 [facility] RESPIRATORY PANEL MOLECULARo n 05-18-2024 RP PANEL Normal Reference Range = Not Detected Resp path DNA+RNA Pnl Resp ANNIKA+probe Nucleic acid amplification test method Resp path DNA+RNA Pnl Resp ANNIKA+probe Copy of report sent to Infection Control Printer MS#[id number] 05/18/24 [facility] AD[facility] Not Detected INFLUENZA A Not Detected INFLUENZA A (SUBTYPE H1) Not Detected INFLUENZA A (SUBTYPE H3) Not Detected INFLUENZA B Not Detected HUMAN METAPHNEUMO Not Detected PARAINFLUENZA 1 Not Detected PARAINFLUENZA 2 Not Detected PARAINFLUENZA 3 Not Detected PARAINFLUENZA 4 Not Detected RHINOVIRUS Not Detected RSV A A Positive for RSV A by NAAT technology A RSV B Not Detected RSV A Normal [facility] Comment on above: Performed By: #### M 100.638 #### [facility] [place], [address] Serum anion gap measurementO rdered By: Sharona Sequeira on 05-18-2024 Anion gap [Moles/Vol] 6 mmol/L 5-15 [facility] Serum globulin measurementOr dered By: Sharona Sequeira on 05-18-2024 Globulin (S) [Mass/Vol] 3.7 g/dL 2.2-4.2 [facility] Serum or plasma alanine grant otransferase (ALT) measurementOrdered By: Sharona Sequeira on 05-18-2024 ALT [Catalytic activity/Vol] 21 U/L 13-56 [facility] Serum or plasma albumin zari urement (mass/volume)Ordered By: Sharona Sequeira 05-18-2024 Albumin [Mass/Vol] 2.8 g/dL Low 3.2-5.0 [facility] Serum or plasma alkaline keven sphatase measurementOrdered By: Sharona Sequeira 05-18-2024 ALP [Catalytic activity/Vol] 83 U/L 45-117 [facility] Serum or plasma calcium zari urement (mass/volume)Ordered By: Sharona Sequeira 05-18-2024 Calcium [Mass/Vol] 9.0 mg/dL 8.5-10.1 [facility] Serum or plasma creatinine m easurement (mass/volume)Ordered By: Sharona Sequeira 05-18-2024 Creatinine [Mass/Vol] 0.80 mg/dL 0.55-1.02 [facility] Comment on above: The validity of the calculated GFR & GFRAA in patients over 70 years has not been determined. Clinical correlation is essential. Serum or plasma urea nitroge n measurement (mass/volume)Ordered By: Sharona Sequeira on 05-18-2024 Urea nitrogen [Mass/Vol] 20 mg/dL High 7-18 [facility] Sodium levelOrdered By: Eryn Sequeira on 05-18-2024 Sodium [Moles/Vol] 135 mmol/L Low 136-145 [facility] Strep pneumoniae Antig(UR,CS F)on 05-18-2024 STPAG URINE, CLEAN CATCH URINE INTERPRETATION Strep pneumoniae Antig(UR,CSF) Negative Urine Presumptive negative for pneumococcal pneumonia, suggesting no current or recent pneumococcal infection. Infection due to S pneumoniae cannot be ruled out since the antigen present in the sample may be below the detection limit of the test. Strep pneumo Test Negative URINE (See interpretation below) Normal [facility] Comment on above: Performed By: #### M 300.4600, M300.4500 #### [facility] [address] [place], [place], [id number] Streptococcus pneumoniae ant igen assayOrdered By: Sharona Sequeira on 05-18-2024 Streptococcus pneumoniae Antigen (M [facility] Total proteinOrdered By: Aut umn White on 05-18-2024 Protein [Mass/Vol] 6.5 g/dL 6.4-8.2 [facility] White blood cell (WBC) count Ordered By: Sharona Sequeira on 05-18-2024 WBC (Bld) [#/Vol] 14.3 10*3/uL High 4.4-11.0 [facility] 12 Lead EKGon 05-17-2024 12 Lead EKG [facility] Cardiovascular Services [address] [place] [address] 12 Lead EKG 05/17/24 1727 MR#: [id number] Acct: [id number] Name: ERLINDA MONREAL Rep #: [id number] : 1950 73 From: Hari Lewis MD Attending Dr: Dr. Laith Whelan, DO Status: A DM IN Ordering Dr: Yeison Anderson MD Date: 05/17/24 Location: U Sex: F C Admitted: 05/17/24 Test Reason : SOB Blood Pressure : */* mmHG Vent. Rate : 113 BPM Atrial Rate : 113 BPM P-R Int : 172 ms QRS Dur : 68 ms QT Int : 334 ms P-R-T Axes : 19 -6 73 degrees QTcB Int : 458 ms Sinus tachycardia Inferior infarct , age undetermined Abnormal ECG Confirmed by Hari Lewis ([id number]), desk editor MARIAH PINK ([id number]) on 05/18/2024 9:37:35 AM Referred By: ES/UG Confirmed By: Hari Lewis 05/18/2437 Date Hari Lewis MD CC: Dr. Laith Whelan DO; Dr. Yeison Anderson MD; No Primary Care Physician Signed Normal [facility] Arterial patency Wrist arter y --pre arterial punctureOrdered By: Yeison Anderson on 05-17-2024 Osvaldo Test Positive [facility] Base excess Calc (BldV) [Mol es/Vol]Ordered By: Yeison Anderson on 05-17-2024 Blood Gas Base Excess -1 mmol/L -2-2 [facility] Blood Gases by CPSon 025 OSVALDO TEST Positive Normal [facility] Comment on above: Performed By: #### L 9000.0800 #### [facility] [address] [place], [address] Base excess Calc (Bld) [Moles/Vol] -1 mmol/L Normal -2 to +2 [facility] Comment on above: Performed By: #### L 9000.0800 #### [facility] [address] [place], [address] Blood Gas Type ART Normal [facility] Comment on above: Performed By: #### L 9000.0800 #### [facility] [address] [place], [address] CO2 [Moles/Vol] 25 mmol/L Normal [facility] Comment on above: Performed By: #### L 9000.0800 #### [facility] [address] [place], [address] FI02 4.0 Normal [facility] Comment on above: Performed By: #### L 9000.0800 #### [facility] [address] [place], [address] HCO3 (Bld) [Moles/Vol] 23.4 mmol/L Normal 22-26 [facility] Comment on above: Performed By: #### L 9000.0800 #### [facility] [address] [place], [address] Mode Not entered Normal [facility] Comment on above: Performed By: #### L 0.0800 #### [facility] [address] [place], [address] O2 Delivery Dev Cannula Normal [facility] Comment on above: Performed By: #### L 8999.0800 #### [facility] [address] [place], [address] pCO2 34.5 mmHg Low 35-45 [facility] Comment on above: Performed By: #### L 8999.0800 #### [facility] [address] [place], [address] pH (Bld) 7.44 [pH] Normal 7.35-7.45 [facility] Comment on above: Performed By: #### L 8999.0800 #### [facility] [address] [place], [address] PO2 73 mmHG Low 75-100 [facility] Comment on above: Performed By: #### L 9000.0800 #### [facility] [address] [place], [address] SITE L Radial Normal [facility] Comment on above: Performed By: #### L 8999.0800 #### [facility] [address] [place], [address] SO2 95 Normal 95-99 [facility] Comment on above: Performed By: #### L 0.0800 #### [facility] [address] [place], [address] Blood bicarbonate measuremen tOrdered By: Yeison Anderson on 05-17-2024 Blood Gas Bicarbonate Actual 23.4 mmol/L - [facility] CBC W/Diff, Automatedon Absolute Lymph 0.59 X10 3/uL Low 0.83-4.51 [facility] Comment on above: Performed By: #### L 503.6005, L100.0100, L500.4050 #### [facility] [address] [place], [address] Absolute Neut 7.9 X10 3/uL High 2.0-7.7 [facility] Comment on above: Performed By: #### L 503.6005, L100.0100, L500.4050 #### [facility] [address] [place], [address] Basophils/100 WBC (Bld) 0.2 % Normal 0-1 [facility] Comment on above: Performed By: #### L 503.6005, L100.0100, L500.4050 #### [facility] [address] [place], [address] Eosinophils/100 WBC (Bld) 0.0 % Normal 0-5 [facility] Comment on above: Performed By: #### L 503.6005, L100.0100, L500.4050 #### [facility] [address] [place], [address] Erythrocyte distribution width (RBC) [Ratio] 13.2 % Normal 11.6-14.6 [facility] Comment on above: Performed By: #### L 503.6005, L100.0100, L500.4050 #### [facility] [address] [place], [address] Hematocrit (Bld) [Volume fraction] 45.1 % Normal 37-47 [facility] Comment on above: Performed By: #### L 503.6005, L100.0100, L500.4050 #### [facility] [address] [place], [address] Hemoglobin (Bld) [Mass/Vol] 14.7 g/dL Normal 12.0-15.0 [facility] Comment on above: Performed By: #### L 503.6005, L100.0100, L500.4050 #### [facility] [address] [place], [address] IG% 0.300 Normal 0.0-0.9 [facility] Comment on above: Result Comment: IG% - Immature Granulocytes (promyelocytes, myelocytes and metamyelocytes) > 1% indicates that a LEFT SHIFT is Present. Performed By: #### L 503.6005, L100.0100, L500.4050 #### [facility] [address] [place], [address] Lymphocytes/100 WBC (Bld) 6.5 % Low 19-41 [facility] Comment on above: Performed By: #### L 503.6005, L100.0100, L500.4050 #### [facility] [address] [place], [address] MCH (RBC) [Entitic mass] 30.2 pg Normal 27.0-32.0 [facility] Comment on above: Performed By: #### L 503.6005, L100.0100, L500.4050 #### [facility] [address] [place], [address] MCHC (RBC) [Mass/Vol] 32.6 g/dL Normal 32-36 [facility] Comment on above: Performed By: #### L 503.6005, L100.0100, L500.4050 #### [facility] [address] [place], [address] MCV (RBC) [Entitic vol] 92.6 fL Normal 81-99 [facility] Comment on above: Performed By: #### L 503.6005, L100.0100, L500.4050 #### [facility] [address] [place], [address] Monocytes/100 WBC (Bld) 6.8 % Normal 0-10 [facility] Comment on above: Performed By: #### L 503.6005, L100.0100, L500.4050 #### [facility] [address] [place], [address] Neutrophils/100 WBC (Bld) 86.2 % High 47-70 [facility] Comment on above: Performed By: #### L 503.6005, L100.0100, L500.4050 #### [facility] [address] [place], [address] Nucleated RBC (Bld) [#/Vol] 0 10*3/uL Normal 0-5 [facility] Comment on above: Performed By: #### L 503.6005, L100.0100, L500.4050 #### [facility] [address] [place], [address] Platelet mean volume (Bld) [Entitic vol] 9.8 fL Normal 6.2-12.0 [facility] Comment on above: Performed By: #### L 503.6005, L100.0100, L500.4050 #### [facility] [address] [place], [address] Platelets (Bld) [#/Vol] 234 10*3/uL Normal 150-450 [facility] Comment on above: Performed By: #### L 503.6005, L100.0100, L500.4050 #### [facility] [address] [place], [address] RBC (Bld) [#/Vol] 4.87 10*6/uL Normal 4.2-5.4 [facility] Comment on above: Performed By: #### L 503.6005, L100.0100, L500.4050 #### [facility] [address] [place], [address] RDW SD 45.5 fl High 35.1-43.9 [facility] Comment on above: Performed By: #### L 503.6005, L100.0100, L500.4050 #### [facility] [address] [place], [address] WBC (Bld) [#/Vol] 9.1 10*3/uL Normal 4.4-11.0 [facility] Comment on above: Performed By: #### L 503.6005, L100.0100, L500.4050 #### [facility] [address] [place], [address] CNOVon 05-17-2024 CNOV [facility] ---- DARRELLERLINDA HESS ([id number]) 1950 F Date Time Provider Department 05/17/24 5:15 PM DENYS CONN [facility] During your visit today, we recorded the following information about you: Temperature Pulse Respiration Blood pressure 103.3 degrees 116/minute 22/minute 159/101 Weight 53.8 kg Denys Conn APRN.[employer] 05/17/2024 5:12 PM Signed Subjective HPI HPI Erlindarony Monreal is a 73 year old female who presents today for CC of cough, sob, weakness. This started 5 days ago/worsening. Has tried otc medication for relief. Symptoms are worsened by nothing. Risk factors no sick exposure. Long time smoker. .Patient presents with: Cough: Chest congestion, SCHUMACHER, fatigue PAST MEDICAL HISTORY Diagnosis Date Primary osteoarthritis of both first carpometacarpal joints PAST SURGICAL HISTORY Procedure Laterality Date LIGATE FALLOPIAN TUBE Bilateral PAST SURGICAL HISTORY OF Right 1966 right knee surgery ALLERGIES Patient has no known allergies. MEDICATIONS No prescriptions on file. No family history on file. Social History Tobacco Use Smoking status: Former Types: Cigarettes Smokeless tobacco: Never Vaping Use Vaping status: Never Used Substance Use Topics Alcohol use: Never Drug use: Never Review of Systems Constitutional: Positive for fever and malaise/fatigue. HENT: Negative for congestion, ear pain, nosebleeds and sore throat. Respiratory: Positive for cough and shortness of breath. Negative for wheezing. Cardiovascular: Negative for chest pain. Musculoskeletal: Negative for neck pain. Skin: Negative for rash. Objective Blood pressure 159/101, pulse 116, temperature (!) 39.6 ?C (103.3 ?F), resp. rate 22, weight 53.8 kg (118 lb 9.7 oz), SpO2 91%. Physical Exam Constitutional: General: She is not in acute distress. Appearance: She is not toxic-appearing or diaphoretic. HENT: Head: Normocephalic and atraumatic. Cardiovascular: Rate and Rhythm: Normal rate and regular rhythm. Heart sounds: Normal heart sounds, S1 normal and S2 normal. Pulmonary: Effort: Pulmonary effort is normal. Tachypnea present. Breath sounds: Rhonchi (scattered bilat) present. No decreased breath sounds, wheezing or rales. Lymphadenopathy: Cervical: No cervical adenopathy. Right cervical: No superficial cervical adenopathy. Left cervical: No superficial cervical adenopathy. Neurological: Mental Status: She is alert and oriented to person, place, and time. Gait: Gait is intact. ASSESSMENT/PLAN: 1. SOB (shortness of breath) - ICD9: 786.05, ICD10: R06.02 (primary diagnosis) I will refer to Er Stable 2. Acute cough - ICD9: 786.2, ICD10: R05.1 3. FUO (fever of unknown origin) - ICD9: 780.60, ICD10: R50.9 Denys Cnon APRN.[employer]PERATOR Allergies As of Date: 05/17/2024 (No Known Allergies) Date Reviewed: 05/17/2024 Reviewed by: Olinda Soni MA - Fully Assessed Reason for Visit: Cough [28] Cmt: Chest congestion, SCHUMACHER, fatigue Primary Visit Diagnosis:SOB (shortness of breath) [R06.02] Other Visit Diagnoses:Acute cough [R05.1] FUO (fever of unknown origin) [R50.9] Problem List As Of Date: 05/17/2024 (None) Encounter Status:Closed by DENYS CONN on 05/17/24 Normal [facility] Chest PA and Lateralon 05-17 Chest PA and Lateral [facility] Imaging Services [address], [place] [address] Chest PA and Lateral MR#: [id number] Acct: [id number] Name: ERLINDA MONREAL Rep #: [id number] : 1950 F 73 From: Clay Crawford PCP: Care Physician,No Primary Status: ADM IN Study: Chest PA and Lateral Date of Exam: 05/17/24 Exam# [id number] Ordering Dr: Yeison Anderson MD -[id number] STUDY: X-RAY CHEST REASON FOR EXAM: Female, 73 years old. Cough, fever and wheezing TECHNIQUE: Frontal and lateral views of the chest. COMPARISON: None. FINDINGS: Large left diaphragmatic hernia present containing:. Possible bibasilar infiltrate on the right. There is no demonstrated pleural abnormality. Normal size heart. Normal mediastinum and kel. Normal visualized pulmonary arteries. Normal visualized aortic arch and descending thoracic aorta. Moderate scoliosis. Normal visualized ribs, clavicles, and shoulders. There is no demonstrated abnormality of the visualized soft tissue structures of the upper abdomen. RAD/Chest PA and Lateral IMPRESSION: Large diaphragmatic hernia appears to contain colon. Possible right basilar infiltrate. Electronically Signed: Clay Wakefield MD at 20:36 EST , CC: Dr. Yeison Anderson MD; No Primary Care Physician Conceptor: Signed Normal [facility] Comprehensive Metabolic Prof ilon 05-17-2024 Albumin [Mass/Vol] 3.4 g/dL Normal 3.2-5.0 [facility] Comment on above: Performed By: #### L 503.6005, L100.0100, L500.4050 #### [facility] [address] [place], [address] Albumin/Globulin [Mass ratio] 0.8 {ratio} Low 0.9-2.4 [facility] Comment on above: Performed By: #### L 503.6005, L100.0100, L500.4050 #### [facility] [address] [place], [address] ALK P 103 U/L Normal 45-117 [facility] Comment on above: Performed By: #### L 503.6005, L100.0100, L500.4050 #### [facility] [address] [place], [address] ALT [Catalytic activity/Vol] 19 U/L Normal 13-56 [facility] Comment on above: Performed By: #### L 503.6005, L100.0100, L500.4050 #### [facility] [address] [place], [address] AST [Catalytic activity/Vol] 31 U/L Normal 15-37 [facility] Comment on above: Performed By: #### L 503.6005, L100.0100, L500.4050 #### [facility] [address] [place], [address] Bilirubin [Mass/Vol] 0.90 mg/dL Normal 0.20-1.00 [facility] Comment on above: Result Comment: For patients on eltrombopag therapy, use of Dimension [place] TBIL is not recommended. Performed By: #### L 503.6005, L100.0100, L500.4050 #### [facility] [address] [place], [address] BUN/CRE 17.1 RATIO Normal 10-20 [facility] Comment on above: Performed By: #### L 503.6005, L100.0100, L500.4050 #### [facility] [address] [place], [address] CA,Total 9.2 mg/dL Normal 8.5-10.1 [facility] Comment on above: Performed By: #### L 503.6005, L100.0100, L500.4050 #### [facility] [address] [place], [address] Chloride [Moles/Vol] 100 mmol/L Normal 98-107 [facility] Comment on above: Performed By: #### L 503.6005, L100.0100, L500.4050 #### [facility] [address] [place], [address] CO2 [Moles/Vol] 27.0 mmol/L Normal 21.0-32.0 [facility] Comment on above: Performed By: #### L 503.6005, L100.0100, L500.4050 #### [facility] [address] [place], [address] Creatinine [Mass/Vol] 1.05 mg/dL High 0.55-1.02 [facility] Comment on above: Result Comment: The validity of the calculated GFR GFRAA in patients over 70 years has not been determined. Clinical correlation is essential. Performed By: #### L 503.6005, L100.0100, L500.4050 #### [facility] [address] [place], [address] ECRCL 38.61 ml/min Normal [facility] Comment on above: Performed By: #### L 503.6005, L100.0100, L500.4050 #### [facility] [address] [place], [address] EST GFR - AA 66 mL/min Normal >60 [facility] Comment on above: Result Comment: Afri can [place]rit[place]an GFR Calc Performed By: #### L 503.6005, L100.0100, L500.4050 #### [facility] [address] [place], [address] GAP 9 Normal 5-15 [facility] Comment on above: Performed By: #### L 503.6005, L100.0100, L500.4050 #### [facility] [address] [place], [address] GFR/1.73 sq M.predicted among non-blacks MDRD (S/P/Bld) [Vol rate/Area] 54 mL/min/{1.73_m2} Low >60 [facility] Comment on above: Result Comment: Non- GFR Calc Performed By: #### L 503.6005, L100.0100, L500.4050 #### [facility] [address] [place], [address] Globulin (S) [Mass/Vol] 4.0 g/dL Normal 2.2-4.2 [facility] Comment on above: Performed By: #### L 503.6005, L100.0100, L500.4050 #### [facility] [address] [place], [address] Glucose [Mass/Vol] 155 mg/dL High 74-106 [facility] Comment on above: Result Comment: Fast ing Glucose result greater than or equal to 126 mg/dL suggests DIABETES MELLITUS per A.D.A. criteria. Performed By: #### L 503.6005, L100.0100, L500.4050 #### [facility] [address] [place], [address] Potassium [Moles/Vol] 3.3 mmol/L Low 3.5-5.1 [facility] Comment on above: Performed By: #### L 503.6005, L100.0100, L500.4050 #### [facility] [address], [address] Sodium [Moles/Vol] 136 mmol/L Normal 136-145 [facility] Comment on above: Performed By: #### L 503.6005, L100.0100, L500.4050 #### [facility] [address] [place], [address] T PROT 7.4 g/dL Normal 6.4-8.2 [facility] Comment on above: Performed By: #### L 503.6005, L100.0100, L500.4050 #### [facility] [address] [place], [address] Urea nitrogen [Mass/Vol] 18 mg/dL Normal 7-18 [facility] Comment on above: Performed By: #### L 503.6005, L100.0100, L500.4050 #### [facility] [address] [place], [address] Determination of fraction of inspired oxygenOrdered By: Yeison Anderson on 05-17-2024 Blood Gas Oxygen Percent 4.0 [facility] Emergency Department Summary on 05-17-2024 Emergency Department Summary [facility] Medical Records Department [address] [place] [address] Emergency Department Summary 05/17/24 MR#: [id number] Acct: [id number] Name: ERLINDA MONREAL Rep #: [id number] : 1950 73 From: Yeison Anderson MD PCP: Care Physician,No Primary Status:REG ER Location: ED HPI History of Present Illness Chief Complaint: Fever Detail of Chief Complaint: Fever, cough, wheezing and dizziness defined as lightheadedness Informant: patient Onset/Context/Timin g Onset: Weeks (Illness started approximately 2 weeks ago.) Context: Sudden Onset Timing: Continuous and Waxes and wanes Quality: Upper respiratory Location: Respiratory Current Severity: Mild Maximum Severity: Moderate Worsened by: Activity Relieved by: Nothing Associated Symptoms Associated Symptoms: Subjective fever Narrative Narrative: Patient is a 73-year-old woman no medication with no reported past medical history who presents because of cough, intermittent wheezing, fever. 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 Does not know the type of pneumonia. She is a smoker. She has smoked since she was very young. She presently smokes a couple to several cigarettes a day. She denies headache, visual, ocular auditory symptoms. She does endorse dyspnea with activity, nonproductive cough. She denies pain with breathing. She denies pain in her calves, swelling of her legs or discoloration of her legs. She denies abdominal pain, nausea, vomiting or diarrhea. Prior similar symptoms: Yes Recent Illness/Hospitaliza tion: No PFSH PFSH Medical History (Updated 05/17/24 @ 19:[address] Sharona Sequeira MD) Smoker Tobacco use Hx of ectopic Home Medications ???Medication ???Instructions ???Recorded ???Last Taken ???Type NK 06/26/21 Unknown History Allergy/AdvReac Type Severity Reaction Status Date / Time No Known Allergies Allergy Verified 05/17/24 17:18 Surgical History Hx of tonsillectomy Hx of knee surgery Social History (Updated 05/17/24 @ 17:[address] Yeison Anderson MD) household members: none Smoking Status: Current some day smoker tobacco type: cigarettes ROS ROS ED Constitutional Constitutional ED: Reports chills, fever(s) and subjective; Denies sweats or weight loss Eyes Eyes: Denies blurry vision, change in vision or diplopia ENT ENT ED: Denies ear pain, rhinorrhea or sore throat Cardiovascular Cardiovascular: Denies chest pain, orthopnea, palpitations, paroxysmal nocturnal dyspnea or racing heartbeat Respiratory/Chest Respiratory/Chest: Reports cough, dyspnea and dyspnea on exertion; Denies orthopnea, paroxysmal nocturnal dyspnea or sputum Gastrointestinal Gastrointestinal: Denies abdominal pain, melena, nausea or vomiting Genitourinary Genitourinary ED: Denies dysuria, hematuria or urinary frequency Musculoskeletal Musculoskeletal: Denies arthralgias, back pain or myalgias Integumentary Denies rash Neurologic Neurologic: Denies headache(s) or paresthesias Psychiatric Psychiatric: Denies anxiety or depression Endocrine Endocrinology: Denies cold intolerance or heat intolerance Hematologic/Lymphat ic Hematologic/Lymphat ic: Reports systems reviewed and no addt'l complaints, except as documented EXAM Physical Exam Const Vital Signs: 05/17/24 17:19 05/17/24 17:20 05/17/24 17:31 Temperature 100.1 F H 100.1 F H Temperature Source Oral Oral Pulse Rate 155 H 155 H Respiratory Rate 18 18 Respiratory Effort Normal Non-Labored Respiratory Depth Respiratory Pattern Normal Blood Pressure 152/103 H 152/103 H Blood Pressure Mean 119 119 Pulse Ox 92 92 Oxygen Delivery Method Room Air Room Air 05/17/24 17:49 05/17/24 17:52 05/17/24 18:18 Temperature Temperature Source Pulse Rate 110 H 104 H Respiratory Rate 20 H 18 Respiratory Effort Normal Non-Labored Respiratory Depth Normal Respiratory Pattern Normal Blood Pressure 163/83 H Blood Pressure Mean 109 Pulse Ox 90 Oxygen Delivery Method 05/17/24 18:20 05/17/24 18:57 Temperature 99.9 F H Temperature Source Oral Pulse Rate 104 H Respiratory Rate 18 Respiratory Effort Respiratory Depth Respiratory Pattern Blood Pressure 163/83 H Blood Pressure Mean 109 Pulse Ox 90 79 Oxygen Delivery Method Room Air Room Air Positive well developed and cachectic; Negative for contractures or unkempt General Appearance ED: well developed, cachectic and NAD; Negative for unkempt, contractures, cyanotic, diaphoretic or pallor Nutritional Appearance: cachectic HEENT Reports moist mucous membranes HEENT Narrative: Ears normal. Nares patent without discharge. Posterior ph (more content not included)... Normal [facility] H&P Exam - Hospitalist [facility] Medical Records Department [address] [place] [address] H P Exam - Hospitalist 05/17/241910 MR#: [id number] Acct: [id number] Name: ERLINDA MONREAL Rep #: [id number] : 1950 73 From: Sharona Sequeira MD PCP: Care Physician,No Primary Status:REG ER Location: ED HPI - General General Date of Admission: 05/17/24 Date of Service: 05/17/24 Chief Complaint: Dyspnea, cough, wheezing, subjective fever/chills. 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 She notes that her dyspnea is worse when she exerts herself but does state that the cough has been nonproductive. She denies any associated nausea, emesis or diarrhea with her current illness. Workup in the ED included T 100.1, heart rate initially 155 with significant rate improvement with IV fluids, BP 152/103, respiratory rate 18, initially 92% on room air however did desaturate down to 79% on room air w/ nursing evaluation requiring 6 L transition with improvement to 94%., most recent repeat vitals T99.9 Orally, heart rate 104, BP 162/83, respiratory rate 18, CBC with WBC 9.1, hemoglobin 14.7, platelet 234 with left shift and lymphopenia, CMP with potassium 3.3, BUN/creatinine 18/1.05, GFR 54, glucose 155, lactic acid 1.8, hepatic profile unremarkable, rapid SARS COVID/influenza/RSV PCR with positive RSV, chest x-ray with questionable infiltrate in the superior segment of the right lower lobe, EKG with sinus tachycardia with no acute evidence of ischemia but no comparison. In the ED patient ministered Solu-Medrol 60 mg IV x 1 as well as IV fluids. [facility] Medical History Smoker Tobacco use Hx of ectopic Home Medications ???Medication ???Instructions ???Recorded ???Last Taken ???Type NK 06/26/21 Unknown History Allergy/AdvReac Type Severity Reaction Status Date / Time No Known Allergies Allergy Verified 05/17/24 17:18 Family History Mother Hypertension Father CVA (cerebral vascular accident) Surgical History Hx of tonsillectomy Hx of knee surgery Social History (Updated 05/17/24 @ 19:[address] Sharona Sequeira MD) household members: none Smoking Status: Current some day smoker tobacco type: cigarettes how long ago did patient quit smoking: Quit various time over the years, started as teen, up to 3 ppd, down to 3-5 alcohol intake: never substance use type: does not use ROS ROS Narrative Admission Review of Systems: CONSTITUTIONAL: No weight loss, + fever, chills, weakness or fatigue. HEENT: + Congestion, rhinorrhea, lightheadedness/diz ziness, hoarse voice from coughing. Eyes: No visual loss, blurred vision, double vision or yellow sclerae. Ears, Nose, Throat: No hearing loss, runny nose or sore throat. SKIN: No rash or itching, lesions, wounds. CARDIOVASCULAR: No chest pain, chest pressure or chest discomfort, palpitations, edema, orthopnea, syncopal events. RESPIRATORY: + Dyspnea, cough not markedly productive, wheezing. No hemoptysis. GASTROINTESTINAL: + Anorexia. No nausea, vomiting or diarrhea, abdominal pain, melena, BRBPR. GENITOURINARY: No dysuria, frequency, urgency or retention. NEUROLOGICAL: + Lightheadedness/diz ziness. No headache, syncope, paralysis, ataxia, numbness or tingling in the extremities, focal weakness, change in bowel or bladder control, seizure. MUSCULOSKELETAL: + muscle, back pain, joint pain or stiffness. HEMATOLOGIC: No anemia, bleeding or bruising. LYMPHATICS: No enlarged nodes. No history of splenectomy. PSYCHIATRIC: No history of depression or anxiety. ENDOCRINOLOGIC: No reports of sweating, cold or heat intolerance. No polyuria or polydipsia. ALLERGIES: No history of asthma, hives, eczema or rhinitis. Vital Signs Vital Signs Vital Signs: 05/17/24 17:19 05/17/24 17:20 05/17/24 17:31 Temperature 100.1 F H 100.1 F H Temperature Source Oral Oral Pulse Rate 155 H 155 H Respiratory Rate 18 18 Respiratory Effort Normal Non-Labored Respiratory Depth Respiratory Pattern Normal Blood Pressure 152/103 H 152/103 H Blood Pressure Mean 119 119 Pulse Ox 92 92 Oxygen Deliv (more content not included)... Normal [facility] Influenza virus A and B and SARS-CoV-2 (COVID-19) and Respiratory syncytial virus RNAOrdered By: Yeison Anderson on 05-17-2024 SARS-CoV-2 (COVID-19) RNA ANNIKA+probe Ql (Unsp spec) RSV Abnormal [facility] Lactic Acidon 05-17-2024 Lactate [Moles/Vol] 1.8 mmol/L Normal 0.4-1.9 [facility] Comment on above: Order Comment: Y Performed By: #### L 503.6005, L100.0100, L500.4050 #### [facility] [address] [place], [address] Lactic acid measurementOrder ed By: Yeison Anderson on 05-17-2024 Lactate [Moles/Vol] 1.8 mmol/L 0.4-2.0 [facility] M100.678on 05-17-2024 SARS-CoV-2 (COVID-19) Ab IA Ql FLUABV+SARS-CoV-2+R SV Pnl Resp ANNIKA+probe Copy of report sent to Infection Control Printer [id number] 05/17/24 1851 MLOLLO. SARS-CoV-2 (COVID 19) Negative INFLUENZA A Negative INFLUENZA B Negative RSV PCR A Positive A RSV Normal [facility] Comment on above: Performed By: #### M 300.8150, M300.7230 #### [facility] [address] [place], [address] Magnesiumon 05-17-2024 Magnesium [Mass/Vol] 2.0 mg/dL Normal 1.6-2.6 [facility] Comment on above: Order Comment: Comme nts: may add to ED labs Performed By: #### L 509.7000, L501.5200 #### [facility] [address] [place], [address] Magnesium measurementOrdered By: Sharona Sequeira on 05-17-2024 Magnesium [Mass/Vol] 2.0 mg/dL 1.6-2.6 [facility] No Panel InformationOrdered By: Yeison Anderson on 05-17-2024 Blood Gas Sample Site L Radial [facility] Blood Gas Specimen Type ART W [facility] Blood Gas Vent Mode Not entered [facility] Oxygen Delivery Device Cannula [facility] Oxygen saturation measuremen tOrdered By: Yeison Anderson on 05-17-2024 Blood Gas Oxygen Saturation 95 % 95-99 [facility] Partial pressure of carbon d ioxide measurementOrdered By: Yeison Anderson on 05-17-2024 Arterial Blood Partial Pressure CO2 34.5 mmHg Low 35-45 [facility] Partial pressure of oxygen m easurementOrdered By: Yeisonisabel Anderson on 05-17-2024 Arterial Blood Partial Pressure O2 73 mmHG Low 75-100 [facility] Procalcitoninon 05-17-2024 Procalcitonin 0.27 ng/mL High 0.00-0.09 [facility] Comment on above: Result Comment: A procalcitonin (PCT) level above 2.0 ng/mL on the first day of ICU admission is associated with a high risk for progression to severe sepsis and/or septic shock. A PCT level below 0.5 ng/mL on the first day of ICU admission is associated with a low risk for progression to severe and/or septic shock. Note: Concentrations <0.5 ng/mL do not exclude an infection on account of localized infections (without systemic signs) which can be associated with such low concentrations, or a systemic infection in its initial stages (<6 hours). Furthermore, increased procalcitonin can occur without infection. PCT concentrations between 0.5 and 2.0 ng/mL should be interpreted taking into account the patient's history. It is recommended to retest PCT within 6-24 hours if any concentrations <2 ng/mL are obtained. Performed By: #### M 300.4600, M300.4500 #### [facility] [place], [address] Procalcitonin [Mass/Vol]Orde red By: Sharona Sequeira on 05-17-2024 Procalcitonin 0.27 ng/mL High 0.00-0.09 [facility] Comment on above: A procalcitonin (PCT ) level above 2.0 ng/mL on the first day of ICU admission is associated with a high risk for progression to severe sepsis and/or septic shock. A PCT level below 0.5 ng/mL on the first day of ICU admission is associated with a low risk for progression to severe and/or septic shock. Note: Concentrations <0.5 ng/mL do not exclude an infection on account of localized infections (without systemic signs) which can be associated with such low concentrations, or a systemic infection in its initial stages (<6 hours). Furthermore, increased procalcitonin can occur without infection. PCT concentrations between 0.5 and 2.0 ng/mL should be interpreted taking into account the patient's history. It is recommended to retest PCT within 6-24 hours if any concentrations <2 ng/mL are obtained. Respiratory pathogens DNA an d RNA panel ANNIKA+probe (Resp)Ordered By: Sharona Sequeira on 05-17-2024 Respiratory Panel (PCR) RSV A Abnormal W [facility] Total carbon dioxide measure mentOrdered By: Yeison Anderson on 05-17-2024 Blood Gas Total CO2 25 mmol/L [facility] pH (Unsp spec)Ordered By: aNseem Anderson on 05-17-2024 Blood Gas pH 7.44 7.35-7.45 [facility] CNPNon 11-23-2023 SHAUN Telephone (AyasdiWS) ---- ERLINDA MONREAL ([id number]) 1950 F Date Time Provider Department 11/23/23 MIKE GAGE During your visit today, we recorded the following information about you: Marily Kuhn MA 11/23/2023 10:34 AM Signed Patient called and wants to cancel her surgery scheduled on 12/02/23. She did not want to reschedule at this time. Case message sent to [place] surgery scheduling. Mary Evans MA 11/23/2023 2:28 PM Signed Surgery has been cancelled. Allergies As of Date: 11/23/2023 (No Known Allergies) Date Reviewed: 11/14/2023 Reviewed by: Mary Evans MA - Fully Assessed Reason for Visit: Surgery Cancelled [4163] Problem List As Of Date: 11/23/2023 (None) Encounter Status:Closed by MARY EVANS on 11/23/23 [facility] 11-21-2023 [facility] Telephone (ORTHWS) ---- DARRELLERLINDA Pedroza ([id number]) 1950 F Date Time Provider Department 11/21/23 MIKE GAGE During your visit today, we recorded the following information about you: Adeline Summers LPN 11/21/2023 2:10 PM Signed Pre auth team call stating that note needs completed before they can submit surgery to insurance. Please complete. PINO Feliciano Sondra, PA-C 11/21/2023 2:27 PM Signed Note is completed. Allergies As of Date: 11/21/2023 (No Known Allergies) Date Reviewed: 11/14/2023 Reviewed by: Mary Evans MA - Fully Assessed Problem List As Of Date: 11/21/2023 (None) Encounter Status:Closed by TRACI CA on 11/21/23 Normal [facility] CNPNon 11-16-2023 CNPN Telephone (PANEWO) ---- ERLINDA MONREAL ([id number]) 1950 F Date Time Provider Department 11/16/23 LYLA INFANTE During your visit today, we recorded the following information about you: Erlinda Campa LPN 11/16/2023 1:14 PM Signed Patient was scheduled for in person [facility] appt at 1pm today. Patient did not check in for appt, called patient at 1:13pm to see if they were planning on coming. Left voicemail with appt information and [facility] phone number. Erlinda Campa LPN Allergies As of Date: 11/16/2023 (No Known Allergies) Date Reviewed: 11/14/2023 Reviewed by: Mary Evans MA - Fully Assessed Problem List As Of Date: 11/16/2023 (None) Encounter Status:Closed by ERLINDA CAMPA on 11/21/23 Normal [facility] XR Wrist - bilateral PA and Lateral and Obliqueon 11-16-2023 IMPRESSION: Degenerative changes as described. Conceptor: PSCB Transcribe Date/Time: Nov 16 2023 9:39P Dictated by : DENYS RODGERS MD This examination was interpreted and the report reviewed and electronically signed by: DENYS RODGERS MD on Nov 16 2023 9:39PM [facility] DIVISION OF RADIOLOGY * * *Final Report* * * DATE OF EXAM: Nov 14 2023 10:15AM WRX [id number] - XR WRIST 3V PA/LAT/OBL MELITON / PROCEDURE REASON: multiple diagnoses * * * * Physician Interpretation * * * * EXAMINATION / TECHNIQUE: XR WRIST 3V PA/LAT/OBL MELITON HISTORY: PT STATES CARPAL TUNNEL > IN RIGHT WRIST Pain in both wrists Pain in both wrists COMPARISON: None. RESULT: No acute fracture or osseous malalignment in either wrist. 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 No osseous erosion in either wrist. The fourth and fifth metacarpals are short on the right. The third and fourth metacarpals are short on the left. DIVISION OF RADIOLOGY Provider, [facility] [place] - 11/16/2023 * * *Final Report* * * DATE OF EXAM: Nov 14 2023 10:15AM WRX 5621 - XR WRIST 3V PA/LAT/OBL MELITON / PROCEDURE REASON: multiple diagnoses * * * * Physician Interpretation * * * * EXAMINATION / TECHNIQUE: XR WRIST 3V PA/LAT/OBL MELITON HISTORY: PT STATES CARPAL TUNNEL > IN RIGHT WRIST Pain in both wrists Pain in both wrists COMPARISON: None. RESULT: No acute fracture or osseous malalignment in either wrist. 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 No osseous erosion in either wrist. The fourth and fifth metacarpals are short on the right. The third and fourth metacarpals are short on the left. IMPRESSION IMPRESSION: Degenerative changes as described. Conceptor: PSCB Transcribe Date/Time: Nov 16 2023 9:39P Dictated by : DENYS RODGERS MD This examination was interpreted and the report reviewed and electronically signed by: DENYS RODGERS MD on Nov 16 2023 9:39PM EST [facility] XR Wrist - bilateral PA and Lateral and ObliqueOrdered By: [facility] Provider on 11-16-2023 [facility] CNCOon 11-15-2023 CNCO Letter Text Normal [facility] CNPNon 11-15-2023 CNPN Telephone (FARHANAWS) ---- ERLINDA MONREAL ([id number]) 1950 F Date Time Provider Department 11/15/23 MIKE GAGE During your visit today, we recorded the following information about you: Mary Evans MA 11/15/2023 9:05 AM Signed Surgical request completed for right thumb CMC arthroplasty with tendon transfer and suspension at [facility] on 12/02/2023. Post op appointments have been scheduled. Please sign order for OT. Traci Ca PA-C 11/15/2023 9:12 AM Signed OT order signed. Mary Evans MA 11/15/2023 9:53 AM Signed Please schedule patient to have OT to follow 1st post op on 12/13/2023 with Traci Ca PA-C. I will mail out with post op appointments. Thank you. Lorena Aguilar 11/18/2023 8:50 AM Signed Patient scheduled 12/13/23 at 3:45 Mary Evans MA 11/18/2023 8:55 AM Signed Surgery has been scheduled as requested. Allergies As of Date: 11/15/2023 (No Known Allergies) Date Reviewed: 11/14/2023 Reviewed by: Mary Evans MA - Fully Assessed Reason for Visit: Schedule Surgery [1330] Primary Visit Diagnosis:Primary osteoarthritis of both first carpometacarpal joints [M18.0] Order(s):SURGICAL REQUEST - ELECTIVE (12/2019) [[id number]] Order #: [id number]: 1 CONSULT TO FERTILIZER LOADER [762325] Order #: [id number]: 1 FUTURE Problem List As Of Date: 11/15/2023 (None) Encounter Status:Closed by LORENA AGUILAR on 11/18/23 [facility] CNVashti 11-14-2023 CNOV Office Visit (FARHANAWS) ---- ERLINDA MONREAL ([id number]) 1950 F Date Time Provider Department 11/14/23 9:15 AM MIKE GAGE During your visit today, we recorded the following information about you: Mike Gage MD 11/21/2023 2:20 PM Signed Mike Gage MD Department of Orthopaedics [facility] [address] [place] [address] Dept: [phone] Dept November 14, 2023 CHIEF COMPLAINT: New and Pain of the Right Wrist HPI Patient here today for right wrist pain. She wears a copper glove for support. 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 We talked about the risks, benefits, alternatives and potential complications involving both operative and nonoperative treatment. She understands and wishes to pursue surgery and she would like to start on the right first. FOLLOW UP INSTRUCTIONS: As above, schedule at her convenience OBJECTIVE: Ms. Erlinda Monreal is a pleasant 73 year old in no apparent distress. Gen:There were no vitals taken for this visit. nl development, non obese, no deformities ENT: Normocephalic, normal hearing, moist mucosa CV: Pulses:Radial= 2+ and symmetric, capillary refill < 2 secs, no peripheral edema/varicosities Skin: no rash, bruising or lesions. Good turgor. Psych: cooperative and appropriate, alert and oriented x 3, good mood and affect. Musculoskeletal: Mild swelling over both basal joints of the thumbs. Tender to palpation at both joints. Pain and crepitance at both joints. No significant hyperextension at the MCP joints. Median, radial and ulnar nerves are intact. Of note, the fourth and fifth metacarpals on the right are dysplastic and the middle and ring finger metacarpals on the left are dysplastic. IMAGING: Impression IMPRESSION: Degenerative changes as described. Conceptor: CORNELIO Transcribe Date/Time: Nov 16 2023 9:39P Dictated by : DENYS RODGERS MD This examination was interpreted and the report reviewed and electronically signed by: DENYS RODGERS MD on Nov 16 2023 9:39PM EST Results-Findings * * *Final Report* * * DATE OF EXAM: Nov 14 2023 10:15AM WRX 5621 - XR WRIST 3V PA/LAT/OBL MELITON / PROCEDURE REASON: multiple diagnoses * * * * Physician Interpretation * * * * EXAMINATION / TECHNIQUE: XR WRIST 3V PA/LAT/OBL MELITON HISTORY: PT STATES CARPAL TUNNEL > IN RIGHT WRIST Pain in both wrists Pain in both wrists COMPARISON: None. RESULT: No acute fracture or osseous malalignment in either wrist. 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 No osseous erosion in either wrist. The fourth and fifth metacarpals are short on the right. The third and fourth metacarpals are short on the left. Supporting Subjective Information Below: Past Medical History: No past medical history on file. Past Surgical History: PAST SURGICAL HISTORY Procedure Laterality Date LIGATE FALLOPIAN TUBE Bilateral PAST SURGICAL HISTORY OF Right 1966 right knee surgery Family History: No family history on file. Social History: Social History Tobacco Use Smoking status: Former Types: Cigarettes Smokeless tobacco: Never Substance Use Topics Alcohol use: Never Drug use: Never Medications: No current outpatient medications on file. No current facility-administer ed medications for this visit. Allergies: Patient has no known allergies. ROS: General (negative for fatigue, malaise, weight loss/gain) HEENT (negative for headache, earache, recent vision changes, sinus pain, sore throat) Respiratory (no recent shortness of breath, hemoptysis) CV (negative for chest tightness, palpitations) Musculoskeletal (see HPI) Psych (no depression, anxiety) MD Cristina Nguyen Amy M, MA 11/21/2023 2:20 PM Signed PT ASSESSMENT - CASTING ROOM Erlinda presents for Application of brace. Applied small Actimove Rhizo Forte brace to Right hand. Patient has been instructed in Care and proper application of brace. Mary Evans MA Referring Provider: MIKE GAGE [[id number]] Allergies As of Date: 11/14/2023 (No Known Allergies) Date Reviewed: 11/14/2023 Reviewed by: Mary Evans MA - Fully Assessed Reason for Visit: New [747555] Pain [78] Primary Visit Diagnosis:Pain in both wrists [M25.531, M25.532] Other Visit Diagnoses:Primary osteoarthritis of both first carpometacarpal joints [M18.0] Right wrist pain [M25.531] Order(s):XR WRIST GENERAL 3V PA/LAT/OBL BILATERAL [[id number]] Order #: [id number] FUTURE Problem List As Of Date: 11/14/2023 (None) (more content not included)... Normal [facility] XR WRIST 3V PA/LAT/OBL BILon 11-14-2023 XR WRIST 3V PA/LAT/OBL MELITON * * *Final Report* * * DATE OF EXAM: Nov 14 2023 10:15AM WRX 5621 - XR WRIST 3V PA/LAT/OBL MELITON / PROCEDURE REASON: multiple diagnoses * * * * Physician Interpretation * * * * EXAMINATION / TECHNIQUE: XR WRIST 3V PA/LAT/OBL MELITON HISTORY: PT STATES CARPAL TUNNEL > IN RIGHT WRIST Pain in both wrists Pain in both wrists COMPARISON: None. RESULT: No acute fracture or osseous malalignment in either wrist. 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 No osseous erosion in either wrist. The fourth and fifth metacarpals are short on the right. The third and fourth metacarpals are short on the left. IMPRESSION: Degenerative changes as described. Conceptor: CORNELIO Transcribe Date/Time: Nov 16 2023 9:39P Dictated by : DENYS RODGERS MD This examination was interpreted and the report reviewed and electronically signed by: DENYS RODGERS MD on Nov 16 2023 9:39PM EST [id number] Normal [facility] XR Wrist - bilateral PA and Lateral and Obliqueon 11-14-2023 Radiology Study observation (narrative) [facility] Saleem 11-09-2023 HIRAMN Telephone (ORTHWS) ---- ERLINDA MONREAL ([id number]) 1950 F Date Time Provider Department 11/09/23 MIKE GAGE During your visit today, we recorded the following information about you: Marily Kuhn MA 11/09/2023 10:52 AM Signed Patient has an appointment with Dr. Gage on Monday 11/13 for wrist pain. Need to know laterality for x-ray order. Left message for patient to call office. Mary Evans MA 11/14/2023 1:36 PM Signed Patient seen in office today. Allergies As of Date: 11/09/2023 (Not on File) Date Reviewed: Never Reviewed Reason for Visit: Chart prep [Other] Problem List As Of Date: 11/09/2023 (None) Encounter Status:Closed by MARY EVANS on 11/14/23 Normal [facility] Vital Signs Date Time Vital Sign Value Performing Clinician Facility 05-19-2024 14:12-0500 Diastolic blood pressure 92 mm[Hg] No Primary Care Physician [facility] 05-19-2024 14:12-0500 Heart rate 78 /min No Primary Care Physician [facility] 05-19-2024 14:12-0500 Inhaled oxygen flow rate 2 L/min No Primary Care Physician [facility] 05-19-2024 14:12-0500 Respiratory rate 16 /min No Primary Care Physician [facility] 05-19-2024 14:12-0500 SaO2% (BldA) [Mass fraction] 95 % No Primary Care Physician [facility] 05-19-2024 14:12-0500 Systolic blood pressure 145 mm[Hg] No Primary Care Physician [facility] 05-19-2024 08:03-0500 Body temperature 97.5 [degF] No Primary Care Physician [facility] 05-19-2024 06:00-0500 Body mass index (BMI) [Ratio] 21 kg/m2 No Primary Care Physician [facility] 05-19-2024 06:00-0500 Body weight 52.2 kg No Primary Care Physician [facility] 05-18-2024 10:53-0500 Body height 157.48 cm No Primary Care Physician [facility] 05-17-2024 16:53-0500 Body temperature 103.3 [degF] Denys Conn SERVICE STATION OPERATOR.[employer] OPERATOR Work Phone: [facility] 05-17-2024 16:53-0500 Body weight 53.8 kg Denys Conn SERVICE STATION OPERATOR.[employer] OPERATOR Work Phone: [facility] 05-17-2024 16:53-0500 Diastolic blood pressure 101 mm[Hg] Denys Conn SERVICE STATION OPERATOR.[employer] OPERATOR Work Phone: [facility] 05-17-2024 16:53-0500 Heart rate 116 /min Denys Conn SERVICE STATION OPERATOR.[employer] OPERATOR Work Phone: [facility] 05-17-2024 16:53-0500 Respiratory rate 22 /min Denys Conn SERVICE STATION OPERATOR.[employer] OPERATOR Work Phone: [facility] 05-17-2024 16:53-0500 SaO2% (BldA) [Mass fraction] 91 % Denys Conn SERVICE STATION OPERATOR.[employer] OPERATOR Work Phone: [facility] 05-17-2024 16:53-0500 Systolic blood pressure 159 mm[Hg] Denys Conn SERVICE STATION OPERATOR.[employer] OPERATOR Work Phone: [facility] Encounters Encounter Date Encounter Type Care Provider Facility Start: 07-19-2024 End: 07-19-2024 ambulatory No Primary Care Physician [facility] Work Phone: Start: 07-19-2024 End: 07-19-[address] Juan David Ingram MD -[facility] Work Phone: Start: 07-19-2024 End: 07-19-2024 ambulatory Juan David Chi Juan Jose Facility:[facility] Start: 07-03-2024 End: 07-03-[address] Juan David Ingram MD -Pulmonary Services/Neurology Work Phone: Start: 07-03-2024 End: 07-03-2024 ambulatory Juan David Chi Juan Jose [facility] Start: 07-03-2024 End: 07-03-2024 ambulatory Juan David Chi Juan Jose Facility:[facility] Start: 06-12-2024 End: 06-12-[address] Juan David Ingram MD -Laboratory Work Phone: Start: 06-12-2024 End: 06-12-2024 ambulatory No Primary Care Physician Facility:[facility] Start: 05-19-2024 Non-patient / Non-visit Dr. Sepideh Whelan [facility] Work Phone: Start: 05-18-2024 Non-patient / Non-visit Dr. Sepideh Whelan [facility] Work Phone: Start: 05-17-2024 End: 05-19-2024 Evaluation and management of inpatient Sharona Sequeira Facility:[facility] Start: 05-17-2024 ambulatory Laith Whelan Facilit y:[facility] Start: 05-17-2024 Non-patient / Non-visit Dr. Lesli Sequeira MD -[place] [facility] Work Phone: Start: 05-17-2024 End: 05-17-2024 Patient encounter procedure Denys Conn APRN.[employer] OPERATOR Work Phone: [facility] Comment on above: SOB (shortness of br eath) (Primary Dx); Acute cough; FUO (fever of unknown origin) Start: 05-17-2024 End: 05-17-2024 ambulatory MIKE GAGE Facility:[facility] Start: 11-23-2023 Telephone encounter Mike morton MD Work Phone: Orthopaedics Comment on above: Surgery Cancelled Start: 11-21-2023 Telephone encounter Mike morton MD Work Phone: Orthopaedics Start: 11-15-2023 Telephone encounter Mike morton MD Work Phone: Orthopaedics Comment on above: Schedule Surgery Start: 11-14-2023 End: 11-14-2023 Subsequent hospital visit by physician Brendon [facility] Work Phone: Radiology Comment on above: Pain in both wrists [M25.531, M25.532] Start: 11-14-2023 End: 11-14-2023 ambulatory MIKE GAGE Facility:[facility] Start: 11-14-2023 End: 11-14-2023 Patient encounter procedure Mike Gage MD Work Phone: Orthopaedics Comment on above: Pain in both wrists (Primary Dx); Primary osteoarthritis of both first carpometacarpal joints; Right wrist pain Start: 11-09-2023 Telephone encounter Mike morton MD Work Phone: Orthopaedics Comment on above: Chart prep Procedures Date Procedure Procedure Detail Performing Clinician Start: 07-19-2024 CT of chest No Primary Care Physician Start: 05-18-2024 Legionella pneumophi la antigen assay No Primary Care Physician Start: 05-18-2024 Streptococcus pneumo niae antigen assay No Primary Care Physician Start: 05-17-2024 X-ray of chest, PA a nd lateral views No Primary Care Physician Start: 05-17-2024 Nucleic acid assay No P [facility] Care Physician Start: 05-17-2024 SARS-CoV-2, Influenz a & RSV (PCR) No Primary Care Physician Plan of Treatment Date Care Activity Detail Author Start: 2024 RSV Vaccine (1 - 1-dose 75+ series) RSV Vaccine (1 - 1-dose 75+ series) [facility] Start: 05-19-2024 Patient discharge [facility] Start: 05-18-2024 Contact precautions [facility] Start: 05-18-2024 Respiratory secretion precautions [facility] Start: 05-17-2024 Following clinical pathway protocol [facility] Start: 05-17-2024 Assessment of risk of venous thromboembolism [facility] Start: 05-17-2024 Inhalation therapy procedure [facility] Start: 05-17-2024 Insertion of catheter into peripheral vein [facility] Start: 05-17-2024 Introduction of urinary catheter [facility] Start: 05-17-2024 Measuring intake and output [facility] Start: 05-17-2024 Oxygen therapy [facility] Start: 05-17-2024 Providing care according to standard [facility] Start: 05-17-2024 Provision of activity privileges [facility] Start: 05-17-2024 Referral to occupational therapist [facility] Start: 05-17-2024 Referral to service [facility] Start: 05-17-2024 Tobacco use cessation education [facility] Start: 05-17-2024 [facility] Start: 05-17-2024 Admission procedure [facility] Start: 05-17-2024 Patient referral to dietitian [facility] Start: 05-09-2024 Advance Directive Discussion Advance Directive Discussion [facility] Start: 01-26-2024 End: 01-26-2024 Patient encounter procedure 01/26/2024 11:20 AM EDT Office Visit Orthopaedics [address] [place] [address] Mike Gage MD [address] [place] [address] Post op right thumb CMC arthroplasty with tendon transfer and suspension Orthopaedics Comment on above: Post op right thumb CMC arthroplasty wit h tendon transfer and suspension Start: 01-08-2024 Covid-19 Vaccine ( season) Covid-19 Vaccine () [facility] Start: 01-08-2024 Influenza vaccination Influenza Vaccine (#1) [facility] Start: 12-27-2023 End: 12-27-2023 Patient encounter procedure 12/27/2023 3:15 PM EDT Office Visit Orthopaedics [address] [address] Mike Gage MD [address] [place] [address] Post op right thumb CMC arthroplasty with tendon transfer and suspension Orthopaedics Comment on above: Post op right thumb CMC arthroplasty wit h tendon transfer and suspension Start: 12-13-2023 End: 12-13-2023 Patient encounter procedure Orthopaedics Comment on above: Post op right thumb CMC arthroplasty wit h tendon transfer and suspension Primary osteoarthrit is of both first carpometacarpal joints [M18.0] Start: 12-02-2023 End: 12-02-2023 Admission to same day surgery center 12/02/2023 11:56 AM EDT - 12/02/2023 1:46 PM EDT Surgery [facility] Surgery [address] [place] [address] Mike Gage MD [address] [place] [address] ARTHROPLASTY CARPOMETACARPAL JOINTS [facility] Surgery Comment on above: ARTHROPLASTY CARPOMETACARPAL JOINTS Start: 12-02-2023 End: 12-02-2023 Arthrp interpos intercarpal/metacarpal joints ARTHROPLASTY CARPOMETACARPAL JOINTS Primary osteoarthritis of both first carpometacarpal joints 12/02/2023 11:56 AM EDT ME OR Start: 12-02-2023 Subsequent hospital visit by physician 12/02/2023 11:56 AM EDT Hospital Encounter [facility] Surgery [address] [place] [address] Mike Gage MD [address] [facility] [place] [address] Primary osteoarthritis of both first carpometacarpal joints [M18.0] [facility] Surgery Comment on above: Primary osteoarthritis of both first car pometacarpal joints [M18.0] Start: 11-28-2023 End: 11-28-2023 Anesthesia consultation 11/28/2023 9:20 AM EDT PAT Pre Anesthesia [address] [place] [address] 1, [address] [place] [address] ARTHROPLASTY CARPOMETACARPAL JOINTS [57244] - Hand - Right Pre Anesthesia Comment on above: ARTHROPLASTY CARPOMETACARPAL JOINTS [220 90] - Hand - Right Start: 05-09-2023 Advance Directive Discussion Advance Directive Discussion [facility] Start: 05-09-2023 Behavioral Health Screening Behavioral Health Screening [facility] Start: 01-07-2023 Covid-19 Vaccine ( season) Covid-19 Vaccine ( season) [facility] Start: 2014 Pneumococcal Vaccine: 65+ (1 of 1 - PCV) Pneumococcal Vaccine: 65+ (1 of 1 - PCV) [facility] Start: 2014 Screening for osteoporosis Bone Density Screening [facility] Start: 2009 RSV Vaccine (1 - 1-dose 60+ series) RSV Vaccine (1 - 1-dose 60+ series) [facility] Start: 08-03-1999 Pneumococcal Vaccine: 50+ (1 of 1 - PCV) Pneumococcal Vaccine: 50+ (1 of 1 - PCV) [facility] Start: 08-03-1999 Shingrix Vaccine (1 of 2) Shingrix Vaccine (1 of 2) [facility] Start: 1994 Diabetes Screening Diabetes Screening [facility] Start: 1994 Lipid panel Lipid Screening [facility] Start: 1994 Screening for malignant neoplasm of colon [facility] Start: 1989 Screening for malignant neoplasm of breast Mammogram Screening [facility] Start: 1968 Urine microalbumin profile DTaP,Tdap,Td Vaccine (1 - Tdap) [facility] Start: 08-03-1967 Anxiety Screening Anxiety Screening [facility] Start: 08-03-1967 Depression Screening Depression Screening [facility] Start: 08-03-1967 Hepatitis C screening Hepatitis C Screening [facility] Patient referral [facility] Work Phone: XR Wrist - bilateral PA and Lateral and Oblique XR WRIST GENERAL 3V PA/LAT/OBL BILATERAL Radiology Routine Pain in both wrists 11/14/2023 10:15 AM EDT [facility] Work Phone: Payers Date Payer Category Payer Self-pay 2023 Medicare [id number] 2014 Medicare [id number] Medicare [employer] MEDICARE PPO [id number] Self-pay SELF PAY INSURANCE [id number] Unknown [id number] [id number] Unknown [id number] 2.16.8 [id number] Unknown [id number] 2.16.8 [id number] Unknown [id number] 2.16.8 [id number] Unknown [id number] 2.16.8 [id number] Unknown [id number] 2.16.8 [id number] Unknown [id number] 2.16.8 [id number] Unknown [id number] 2.16.8 [id number] Social History Date Type Detail Facility Tobacco smoking stat [facility] Tobacco smoking consumption unknown [facility] Start: 11-14-2023 End: 05-17-2024 History of Social function [facility] Start: 11-14-2023 End: 05-17-2024 Tobacco use panel [facility] National Score (1-10 0), lower number is lower risk 72 [facility] Start: 1950 Sex Assigned At Not on file C [facility] Start: 11-14-2023 Tobacco smoking stat [facility] Ex-smoker [facility] History of tobacco use Current smoker [facility] History of tobacco use Cigarette Smoker C [facility] Start: 11-14-2023 Tobacco use and exposure Smokeless tobacco non-user [facility] Start: 11-14-2023 End: 05-17-2024 Alcohol intake Lifetime non-drinker (finding) [facility] Start: 05-17-2024 Tobacco smoking stat [facility] Current some day smoker [facility] Start: 10-09-2020 Occasional Occasional [facility] Start: 10-09-2020 None None [facility] Start: 10-09-2020 Cigarettes Cigarettes [facility] Start: 07-18-2024 End: 07-31-2024 Sex Female (finding) [facility] Start: 1950 Sex Assigned At Female W [facility] Goals Date Patient Goal Desired Activity /State Functional Status Date Assessment Result Facility 05-19-2024 Functional status Ambulates [facility] Work Phone: 05-18-2024 Functional status Assistive Devices None [facility] Work Phone: Mental Status Date Assessment Result Facility 05-18-2024 Cognitive function Voice/Name [facility] Work Phone: Clinical Notes 11-09-2023 to 07-19-2024 Note Date & Type Note Facility 07-19-2024 Radiology Diagnostic study note [facility] Imaging Services [address] [place] [address] Lung Screening MR#: [id number] Acct: [id number] Name: ERLINDA MONREAL Rep #: [id number] : 1950 F 73 From: Eyad Whatley MD PCP: Dr. Juan David Ingram MD Status: MADELIN ELMORE Study:Low Dose CT Lung Screening Date of Exam : 07/19/24 Exam# [id number] Ordering Dr: Juan David Ingram MD PROCEDURE: LOW DOSE CT LUNG SCREENING REASON FOR EXAM: TOBACCO ABUSE Patient has smoked 2 packs per day for 50 years. TECHNIQUE: Low Dose CT Lung Screening without contrast COMPARISON: None. FINDINGS: PULMONARY NODULES: (Only nodules >6mm are reported) Nodules described below are on series 1 unless otherwise specified. Pulmonary Nodules: No concerning pulmonary nodules. Hardware:None Lymph Nodes:No mediastinal hilar or axillary lymphadenopathy. Heart and Vasculature:Normal heart size. No pericardial effusion.Atheroscleroticcalcific ations of the thoracic aorta. Thoracic aorta and pulmonary arteries have normal contours; noncontrast technique limits evaluation. Coronary Artery Calcifications: Present Lungs and Airways: Mild emphysematous changes are present. Scarring at the leftlung base. Scarring is also seen in the superior segment of the left lower lobe. Pleura:No pleural effusion. No pneumothorax. 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 There is a 11.3 cm x 11.1 cm cyst in the right lobe of the liver. Bones:Degenerative changes of the thoracic spine. Increased kyphosis. CT/Low Dose CT Lung Screening IMPRESSION: 1. BASED ON THE ACR LUNG RADS FOR THE MOST SUSPICIOUS NODULE (IF ANY) DESCRIBEDIN THIS REPORT, THE OVERALL LUNG RADS SCORE IS 2.2 - BENIGN (BASED ON IMAGING FEATURES OR INDOLENT BEHAVIOR). RECOMMEND 12-MONTH SCREENING LDCT.. 2. SMOKING CESSATION COUNSELING IS RECOMMENDED IF THE PATIENT IS STILL SMOKING. 3. OTHER SIGNIFICANT FINDINGSNone. One or more dose reduction techniques were used (e.g., Automated exposure control, adjustment of the mA and/or kV according to patient size, use of iterative reconstruction technique). The following information is provided for reference:Lung-RADS 2022 Assessment Categories. Additional information involving Lung-RADS is available at www.acr.org. 0-INCOMPLETE 1-NEGATIVE:No nodules or definitely benign nodules. Complete, central, popcorn,or centric ring calcifications OR fat containing 2-BENIGN APPEARANCE (based on imaging features or indolent behavior). Juxtapleural nodule: < 10mm AND solid; smooth margins; oval, entiform, or triangular shape Solid nodule: <6mm at baseline or new< 4mm Part solid Nodule: < 6mm total mean diameter at baseline Nonsolid nodule:(GGN) < 30mm OR >=30mm stable or slowly growing Airway nodule, subsegmental at baseline, new, or stable Category 3 nodule stableor decreased in size at 6-month follow-up CT or Category 3 or 4A nodules that resolve on follow-up OR category 4B findings proven to be benign following diagnotic work up. 3 - Probably Benign (Based on imaging features or behavior) Solid Nodule: >= 6 to <8mm at baseline OR new 4 to <6mm Part-solid nodule: >= 6mm toal mean diam. with solid component <6mm at baseline OR new < 6mm total mean diam. Non-solid nodule: GGN >= 30mm at baseline or new Atypical pulmonary cyst: Growing cystic component (mean diam.) of thick-walled cyst Category 4A nodule stable or decreased in size at 3-month follow-up CT (excl.airway). 4A - Suspicious Solid nodule: >=8 to < 15mm at baseline OR growing < 8mm OR new 6 to < 8mm Part solid nodule: >= 6mm total mean diam. w/ solid component >=6mm to < 8mm at baseline OR new or growing < 4mm solid component Airway nodule, segmental or more proximal at baseline or new Atypical pulmonary cyst: Thick-walled OR multilocular at baseline OR becomes multilocular 4B - Very Suspicious Airway nodule, segmental or more proximal, and stable or growing Solid nodule: >= 15mm at baseline OR new or growing >= 8mm Part solid nodule: Solid component >= 8mm OR new or growing >= 4mm solid component Atypical pulmonary cyst: Thick-walled with growing wall thickness/nodularity OR Growing multilocular (mean diam.) OR Multilocular with increased loculation or new/increased opacity Slow-growing solid or part solid nodule w/ growth over multiple screening exams 4X - Very Suspicious Category 3 or 4 nodules with additional features that increase the suspicion forlung cancer. S - Clinically Significant or potentially significant findings (non-lung cancer) Reading Location: [id number] CC: Dr. Juan David Ingram MD ~ Conceptor: Signed [facility] 05-19-2024 Note [facility] Medical Records Department [address] [place] [address] Discharge Summary 05/19/24 1318 MR#: [id number] Acct: [id number] Name: ERLINDA MONREAL Rep #: [id number] : 1950 73 From: Laith Whelan DO PCP: Care Physician,No Primary Status:DIS IN [id number] Providers Date of Admission: 05/17/24 Date of Discharge: 05/19/24 Primary Care Physician: No Primary Care Phys Reason For Visit: RSV, HYPOXIA Diagnosis Discharge Diagnosis (1) RSV (respiratory syncytial virus infection): Status: Acute Code(s): B33.8 - Other specified viral diseases Plan 1. Acute hypoxic respiratory failure secondary to RSV viral infection and undiagnosed COPD-patient will continue on her present medications to be reevaluated tomorrow #2 probable COPD-again patient has not had pulmonary function test performed but she has a long history of smoking and still smokes, this complicates care, management, recovery, and prognosis #3 RSV tracheobronchitis-patient will remain on her present medications Total clinical time spent by myself addressing the patient's medical issues, reviewing her data, and collaborating with patient's care team: 35 minutes Medications at Discharge Home Medications albuterol sulfate 90 mcg/actuation aerosol inhaler 2 puff inhalation Q6H PRN shortness of breath or wheezing #8.5 grams 05/19/24 methylprednisolone 4 mg tablets in a dose pack (Medrol (Alhaji)) 4 mg PO PER PKG DIR #21 tabs 05/19/24 Hospital Course Operations None Procedures None Summary of Care Provided Minutes Spent on Discharge: 30 Hospital Course: This 73-year-old white female was seen in the emergency room at [facility] with complaints of cough, wheezing, and fever. Patient does not follow-up with a physician on a regular basis. Patient was an active smoker. Workup in the emergency room included labs which included a normal CBC, patient's chemistry panel was abnormal for a potassium of 3.3 and a creatinine of 1.05. Chest x-ray showed a large diaphragmatic hernia which appears to contain colon, there was a possible right basilar infiltrate noted. Testing was positive for RSV. Patient was admitted to PCU, placed on IV corticosteroids and aerosol treatments, her symptoms improved. On 05/19/2024, patient was evaluated for ambulatory/stationary oxygen needs, she was found to require 2 L of oxygen at rest and 2 L of oxygen with ambulation. Patient agreed to have oxygen set up at her home. Oxygen testing reviewed, patient is ambulatory in the home and community and requires home oxygen with portability. On 05/19/2024, patient was seen and examined: On examination she appeared in good health and spirits, she does not appear to be in any distress. Vital signs as documented. Skin warm and dry and without overt rashes. Neck without JVD, thyroid appears normal, trachea is midline, neck is supple. Lungs clear, normal air movement was noted. Heart exam notable for regular rhythm, normal sounds and absence of murmurs, rubs or gallops. Abdomen unremarkable and without evidence of organomegaly, masses, or abdominal aortic enlargement, bowel sounds are present in all 4 quadrants, no abdominal tenderness was noted. Extremities nonedematous, no cyanosis was noted, no clubbing was noted. Neuro: Cranial nerves II through XII are grossly intact, no focal motor deficits were noted, sensation to light touch and pinprick is intact, motor exam 5/5 throughout. Psych: Patient is alert and oriented x3, she does not appear anxious or depressed, she does not appear agitated. Patient was given information for a physician follow-up but she declined stating that she was not going to follow-up with any physician. Patient was discharged on 05/19/2024 in stable condition. Weight / BMI Weight Weight: 52.2 kg Body Mass Index (BMI) 21.0 ABG / Lab / Microbiology Data 05/18/24 08:27 05/18/24 08:27 Microbiology: Microbiology 05/18/24 10:20 Urine, Clean Catch Legionella Antigen - Final 05/18/24 10:20 Urine, Clean Catch Streptococcus pneumoniae Antigen (M - Final 05/17/24 23:02 Mucosa - Nasopharyngeal Respiratory Panel (PCR) - Final RSV A 05/17/24 17:51 Mucosa - Nose SARS-CoV-2, Influenza RSV (PCR) - Final RSV D/C Instructions Discharge Diet: No restrictions Weight Bearing Status: Full weight bearing DC O2, CPAP, BIPAP Needs RN Home O2 Qualification: Home O2 Qualification: Is the patient on home oxygen No 05/19/24 10:24 Home O2 Qualification: AT REST 1- Pulse Ox at rest 87 05/19/24 10:24 2- Pulse Ox at rest 95 05/19/24 10:24 2- Oxygen Flow Rate at rest 2 05/19/24 10:24 Home O2 Qualification: WITH AMBULATION 1- Pulse Ox with ambulation 94 05/19/24 10:24 1- Oxygen Flow Rate with 2 05/19/24 10:24 ambulation Home O2 Dis (more content not included)... [facility] 05-17-2024 Evaluation note Diagnosis Onset Date Resolution RSV (respiratory syncytial virus infection) inactive May 17 7:12pm [facility] Work Phone: 1(288) 624-877901-09-2025 NoteHNO ID: [id number] Author: DENYS CONN APRN.[employer] PRESS OPERATOR Service: ? Author Type: Nurse Practitioner Type: Progress Notes Filed: 05/17/2024 17:12 Note Text: Subjective HPI HPI Erlinda Monreal is a 73 year old female who presents today for CC of cough, sob, weakness. This started 5 days ago/worsening. Has tried otc medication for relief. Symptoms are worsened by nothing. Risk factors no sick exposure. Long time smoker. .Patient presents with: Cough: Chest congestion, SCHUMACHER, fatigue PAST MEDICAL HISTORY Diagnosis Date Primary osteoarthritis of both first carpometacarpal joints PAST SURGICAL HISTORY Procedure Laterality Date LIGATE FALLOPIAN TUBE Bilateral PAST SURGICAL HISTORY OF Right 1966 right knee surgery ALLERGIES Patient has no known allergies. MEDICATIONS No prescriptions on file. No family history on file. Social History Tobacco Use Smoking status: Former Types: Cigarettes Smokeless tobacco: Never Vaping Use Vaping status: Never Used Substance Use Topics Alcohol use: Never Drug use: Never Review of Systems Constitutional: Positive for fever and malaise/fatigue. HENT: Negative for congestion, ear pain, nosebleeds and sore throat. Respiratory: Positive for cough and shortness of breath. Negative for wheezing. Cardiovascular: Negative for chest pain. Musculoskeletal: Negative for neck pain. Skin: Negative for rash. Objective Blood pressure 159/101, pulse 116, temperature (!) 39.6 ?C (103.3 ?F), resp. rate 22, weight 53.8 kg (118 lb 9.7 oz), SpO2 91%. Physical Exam Constitutional: General: She is not in acute distress. Appearance: She is not toxic-appearing or diaphoretic. HENT: Head: Normocephalic and atraumatic. Cardiovascular: Rate and Rhythm: Normal rate and regular rhythm. Heart sounds: Normal heart sounds, S1 normal and S2 normal. Pulmonary: Effort: Pulmonary effort is normal. Tachypnea present. Breath sounds: Rhonchi (scattered bilat) present. No decreased breath sounds, wheezing or rales. Lymphadenopathy: Cervical: No cervical adenopathy. Right cervical: No superficial cervical adenopathy. Left cervical: No superficial cervical adenopathy. Neurological: Mental Status: She is alert and oriented to person, place, and time. Gait: Gait is intact. ASSESSMENT/PLAN: 1. SOB (shortness of breath) - ICD9: 786.05, ICD10: R06.02 (primary diagnosis) I will refer to Er Stable 2. Acute cough - ICD9: 786.2, ICD10: R05.1 3. FUO (fever of unknown origin) - ICD9: 780.60, ICD10: R50.9 Denys Conn [facility]N.[facility] History of Present illness Narrative* Denys Conn APRN.HIRAM - 05/17/2024 5:09 PM EST Subjective HPI HPI Erlinda Monreal is a 73 year old female who presents today for CC of cough, sob, weakness. This started 5 days ago/worsening. Has tried otc medication for relief. Symptoms are worsened by nothing. Risk factors no sick exposure. Long time smoker. .Patient presents with: Cough: Chest congestion, SCHUMACHER, fatigue PAST MEDICAL HISTORY Diagnosis Date Primary osteoarthritis of both first carpometacarpal joints PAST SURGICAL HISTORY Procedure Laterality Date LIGATE FALLOPIAN TUBE Bilateral PAST SURGICAL HISTORY OF Right 1966 right knee surgery ALLERGIES Patient has no known allergies. MEDICATIONS No prescriptions on file. No family history on file. Social History Tobacco Use Smoking status: Former Types: Cigarettes Smokeless tobacco: Never Vaping Use Vaping status: Never Used Substance Use Topics Alcohol use: Never Drug use: Never Review of Systems Constitutional: Positive for fever and malaise/fatigue. HENT: Negative for congestion, ear pain, nosebleeds and sore throat. Respiratory: Positive for cough and shortness of breath. Negative for wheezing. Cardiovascular: Negative for chest pain. Musculoskeletal: Negative for neck pain. Skin: Negative for rash. Objective Blood pressure 159/101, pulse 116, temperature (!) 39.6 C (103.3 F), resp. rate 22, weight 53.8 kg (118 lb 9.7 oz), SpO2 91%. Physical Exam Constitutional: General: She is not in acute distress. Appearance: She is not toxic-appearing or diaphoretic. HENT: Head: Normocephalic and atraumatic. Cardiovascular: Rate and Rhythm: Normal rate and regular rhythm. Heart sounds: Normal heart sounds, S1 normal and S2 normal. Pulmonary: Effort: Pulmonary effort is normal. Tachypnea present. Breath sounds: Rhonchi (scattered bilat) present. No decreased breath sounds, wheezing or rales. Lymphadenopathy: Cervical: No cervical adenopathy. Right cervical: No superficial cervical adenopathy. Left cervical: No superficial cervical adenopathy. Neurological: Mental Status: She is alert and oriented to person, place, and time. Gait: Gait is intact. ASSESSMENT/PLAN: 1. SOB (shortness of breath) - ICD9: 786.05, ICD10: R06.02 (primary diagnosis) I will refer to Er Stable 2. Acute cough - ICD9: 786.2, ICD10: R05.1 3. FUO (fever of unknown origin) - ICD9: 780.60, ICD10: R50.9 Denys Conn APRN.[employer] PRESS OPERATOR documented [facility] encounterC[facility] Telephone encounter Note * Telephone Encounter - Mary Evans MA - 11/23/2023 2:28 PM EDT Surgery has been cancelled. [facility]07-17-[facility]24 Miscellaneous Notes* Telephone Encounter - Mary Evans MA - 11/23/2023 2:28 PM EDT Surgery has been cancelled. * Telephone Encounter - Marily Kuhn MA - 11/23/2023 10:11 AM EDT Patient called and wants to cancel her surgery scheduled on 12/02/23. She did not want to rescheduleat this time. Case message sent to [place] surgery scheduling. documented in this encounterC[facility] Telephone encounter Note * Telephone Encounter - Marily Kuhn MA - 11/23/2023 10:11 AM EDT Patient called and wants to cancel her surgery scheduled on 12/02/23. She did not want to rescheduleat this time. Case message sent to [place] surgery scheduling. [facility]07-[facility] Telephone encounter Note* Telephone Encounter - Traci Ca PA-C - 11/21/2023 2:27 PM EDT Note is completed. [facility] Work Phone: 1(629) 429-880207-15-2024 Miscellaneous Notes* Telephone Encounter - Traci Ca PA-C - 11/21/2023 2:27 PM EDT Note is completed. * Telephone Encounter - Adeline Summers LPN - 11/21/2023 2:09 PM EDT Pre auth team call stating that note needs completed before they can submit surgery to insurance. Please complete. Adeline Summers LPN documented in this encounterC[facility] Telephone encounter Note * Telephone Encounter - Adeline Summers LPN - 11/21/2023 2:09 PM EDT Pre auth team call stating that note needs completed before they can submit surgery to insurance. Please complete. Adeline Summers LPN [facility] Work Phone: 1(499) 374-368307-12-2024 Telephone encounter Note* Telephone Encounter - Mary Evans MA - 11/18/2023 8:55 AM EDT Surgery has been scheduled as requested. [facility]07-12-[facility]24 Miscellaneous Notes* Telephone Encounter - Mary Evans MA - 11/18/2023 8:55 AM EDT Surgery has been scheduled as requested. * Telephone Encounter - Lorena Aguilar - 11/18/2023 8:50 AM EDT Patient scheduled 8/6/24 at 3:45 * Telephone Encounter - Mary Evans MA - 11/15/2023 9:52 AM EDT Please schedule patient to have OT to follow 1st post op on 12/13/2023 with Traci Ca PA-C. I will mail out with post op appointments. Thank you. * Telephone Encounter - Traci Ca PA-C - 11/15/2023 9:12 AM EDT OT order signed. * Telephone Encounter - Mary Evans MA - 11/15/2023 8:51 AM EDT Surgical request completed for right thumb CMC arthroplasty with tendon transfer and suspension at [facility] on 12/02/2023. Post op appointments have been scheduled. Please sign order for OT. documented in this encounterC[facility]07-[facility] Telephone encounter Note * Telephone Encounter - Lorena Aguilar - 11/18/2023 8:50 AM EDT Patient scheduled 12/13/23 at 3:45 [facility]07-09-2024 Telephone encounter Note* Telephone Encounter - Mary Evans MA - 11/15/2023 9:52 AM EDT Please schedule patient to have OT to follow 1st post op on 12/13/2023 with Traci Ca PA-C. I will mail out with post op appointments. Thank you. [facility]07-09-2024 Telephone encounter Note* Telephone Encounter - Traci Ca PA-C - 11/15/2023 9:12 AM EDT OT order signed. [facility] Work Phone: [phone]) 709-464007-09-2024 Telephone encounter Note* Telephone Encounter - Mary Evans MA - 11/15/2023 8:51 AM EDT Surgical request completed for right thumb CMC arthroplasty with tendon transfer and suspension at [facility] on 12/02/2023. Post op appointments have been scheduled. Please sign order for OT. [facility]07-08-2024 Telephone encounter Note* Telephone Encounter - Mary Evans MA - 11/14/2023 1:36 PM EDT Patient seen in office today. [facility]07-08-[facility] Miscellaneous Notes* Telephone Encounter - Mary Evans MA - 11/14/2023 1:36 PM EDT Patient seen in office today. * Telephone Encounter - Marily Kuhn MA - 11/09/2023 10:51 AM EDT Patient has an appointment with Dr. Gage on Monday 11/13 for wrist pain. Need to know laterality for x-ray order. Left message for patient to call office. documented in this encounterC[facility]07-08-2024 NoteHNO ID: [id number] Author: MARY EVANS MA Service: ? Author Type: Production Metal Sprayer Type: Progress Notes Filed: 11/21/2023 14:20 Note Text: PT ASSESSMENT - CASTING ROOM Erlinda presents for Application of brace. Applied small Actimove Rhizo Forte brace to Right hand. Patient has been instructed in Care and proper application of brace. Mary Evans [facility]07-08-2024 History of Present illness Narrative* Mary Evans MA - 11/14/2023 11:06 AM EDT PT ASSESSMENT - CASTING ROOM Erlinda presents for Application of brace. Applied small Actimove Rhizo Forte brace to Right hand. Patient has been instructed in Care and proper application of brace. Mary Evans MA * Mike Gage MD - 11/14/2023 9:08 AM EDT Mike Gage MD Department of Orthopaedics Orthopaedics [address] [place] [id number] Dept: [phone] Dept November 14, 2023 CHIEF COMPLAINT: New and Pain of the Right Wrist HPI Patient here today for right wrist pain. She wears a copper glove for support. 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 We talked about the risks, benefits, alternatives and potential complications involving both operative and nonoperative treatment. She understands and wishes to pursue surgery and she would like to start on the right first. FOLLOW UP INSTRUCTIONS: As above, schedule at her convenience OBJECTIVE: Ms. Erlinda Monreal is a pleasant 73 year old in no apparent distress. Gen:There were no vitals taken for this visit. nl development, non obese, no deformities ENT: Normocephalic, normal hearing, moist mucosa CV: Pulses:Radial= 2+ and symmetric, capillary refill < 2 secs, no peripheral edema/varicosities Skin: no rash, bruising or lesions. Good turgor. Psych: cooperative and appropriate, alert and oriented x 3, good mood and affect. Musculoskeletal: Mild swelling over both basal joints of the thumbs. Tender to palpation at both joints. Pain and crepitance at both joints. No significant hyperextension at the MCP joints. Median, radial and ulnar nerves are intact. Of note, the fourth and fifth metacarpals on the right are dysplastic and the middle and ring finger metacarpals on the left are dysplastic. IMAGING: Impression IMPRESSION: Degenerative changes as described. Conceptor: PSCB Transcribe Date/Time: Nov 16 2023 9:39P Dictated by : DENYS RODGERS MD This examination was interpreted and the report reviewed and electronically signed by: DENYS RODGERS MD on Nov 16 2023 9:39PM EST Results-Findings * * *Final Report* * * DATE OF EXAM: Nov 14 2023 10:15AM [id number] - XR WRIST 3V PA/LAT/OBL MELITON / PROCEDURE REASON: multiple diagnoses * * * * Physician Interpretation * * * * EXAMINATION / TECHNIQUE: XR WRIST 3V PA/LAT/OBL MELITON HISTORY: PT STATES CARPAL TUNNEL > IN RIGHT WRIST Pain in both wrists Pain in both wrists COMPARISON: None. RESULT: No acute fracture or osseous malalignment in either wrist. 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 No osseous erosion in either wrist. The fourth and fifth metacarpals are short on the right. The third and fourth metacarpals are short on the left. Supporting Subjective Information Below: Past Medical History: No past medical history on file. Past Surgical History: PAST SURGICAL HISTORY Procedure Laterality Date LIGATE FALLOPIAN TUBE Bilateral PAST SURGICAL HISTORY OF Right 1966 right knee surgery Family History: No family history on file. Social History: Social History Tobacco Use Smoking status: Former Types: Cigarettes Smokeless tobacco: Never Substance Use Topics Alcohol use: Never Drug use: Never Medications: No current outpatient medications on file. No current facility-administered medications for this visit. Allergies: Patient has no known allergies. ROS: General (negative for fatigue, malaise, weight loss/gain) HEENT (negative for headache, earache, recent vision changes, sinus pain, sore throat) Respiratory (no recent shortness of breath, hemoptysis) CV (negative for chest tightness, palpitations) Musculoskeletal (see HPI) Psych (no depression, anxiety) Mike Gage MD documented in this encounterC[facility]07-[facility] History of Present illness Narrative* Marianna Mosher RT(R) - 11/14/2023 10:10 AM EDT Radiology Service Progress Note PATIENT NAME: Erlinda Monreal DATE OF SERVICE: November 14, 2023 TIME: 11:47 AM PATIENT IDENTITY VERIFICATION COMPLETED USING TWO (2) IDENTIFIERS: Name and Date of confirmedby patient verbally. FALL SCREENING: Has the patient had 2 falls in the last year or 1 fall with injury or currently using an Ambulatory Assistive Device (Walker, Cane, Wheelchair, Crutches, etc.)? No PATIENT GENDER DATA: Female. status: : No status: NO. PATIENT RELEVANT IMPLANT DATA REVIEWED: Not Applicable PATIENT PRESENTS WITH AN IMPLANTABLE OR ATTACHED PREASSEMBLER PRINTED CIRCUIT BOARD: No RADIOLOGY DEPARTMENT: General X-ray: Exam(s) Completed: Upper Extremity X- Ray(s): Wrist, bilateral PERIPHERAL IV DATA: Not applicable SIGNED BY: RT Esperanza(Crissy) November 14, 2023 11:47 AM documented in this encounterCleveland [facility]07-08-2024 NoteHNO ID: [id number] Author: MARIANNA MOSHER RT(Crissy) Service: ? Author Type: Technologist Type: Progress Notes Filed: 11/14/2023 11:47 Note Text: Radiology Service Progress Note PATIENT NAME: Erlinda Monreal DATE OF SERVICE: November 14, 2023 TIME: 11:47 AM PATIENT IDENTITY VERIFICATION COMPLETED USING TWO (2) IDENTIFIERS: Name and Date of confirmed by patient verbally. FALL SCREENING: Has the patient had 2 falls in the last year or 1 fall with injury or currently using an Ambulatory Assistive Device (Walker, Cane, Wheelchair, Crutches, etc.)? No PATIENT GENDER DATA: Female. status: : No status: NO. PATIENT RELEVANT IMPLANT DATA REVIEWED: Not Applicable PATIENT PRESENTS WITH AN IMPLANTABLE OR ATTACHED PREASSEMBLER PRINTED CIRCUIT BOARD: No RADIOLOGY DEPARTMENT: General X-ray: Exam(s) Completed: Upper Extremity X-Ray(s): Wrist, bilateral PERIPHERAL IV DATA: Not applicable SIGNED BY: Marianna Mosher RT(R) November 14, 2023 11:[address] [facility]07-08-2024 NoteHNO ID: [id number] Author: MIKE GAGE MD Service: ? Author Type: Physician Type: Progress Notes Filed: 11/21/2023 14:20 Note Text: Mike Gage MD Department of Orthopaedics Orthopaedics [address] [facility] [address] Dept: [phone] Dept November 14, 2023 CHIEF COMPLAINT: New and Pain of the Right Wrist HPI Patient here today for right wrist pain. She wears a copper glove for support. 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 We talked about the risks, benefits, alternatives and potential complications involving both operative and nonoperative treatment. She understands and wishes to pursue surgery and she would like to start on the right first. FOLLOW UP INSTRUCTIONS: As above, schedule at her convenience OBJECTIVE: Ms. Erlinda Monreal is a pleasant 73 year old in no apparent distress. Gen:There were no vitals taken for this visit. nl development, non obese, no deformities ENT: Normocephalic, normal hearing, moist mucosa CV: Pulses:Radial= 2+ and symmetric, capillary refill < 2 secs, no peripheral edema/varicosities Skin: no rash, bruising or lesions. Good turgor. Psych: cooperative and appropriate, alert and oriented x 3, good mood and affect. Musculoskeletal: Mild swelling over both basal joints of the thumbs. Tender to palpation at both joints. Pain and crepitance at both joints. No significant hyperextension at the MCP joints. Median, radial and ulnar nerves are intact. Of note, the fourth and fifth metacarpals on the right are dysplastic and the middle and ring finger metacarpals on the left are dysplastic. IMAGING: Impression IMPRESSION: Degenerative changes as described. Conceptor: CORNELIO Transcribe Date/Time: Nov 16 2023 9:39P Dictated by : DENYS RODGERS MD This examination was interpreted and the report reviewed and electronically signed by: DENYS RODGERS MD on Nov 16 2023 9:39PM EST Results-Findings * * *Final Report* * * DATE OF EXAM: Nov 14 2023 10:15AM [id number] - XR WRIST 3V PA/LAT/OBL MELITON / PROCEDURE REASON: multiple diagnoses * * * * Physician Interpretation * * * * EXAMINATION / TECHNIQUE: XR WRIST 3V PA/LAT/OBL MELITON HISTORY: PT STATES CARPAL TUNNEL > IN RIGHT WRIST Pain in both wrists Pain in both wrists COMPARISON: None. RESULT: No acute fracture or osseous malalignment in either wrist. 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 No osseous erosion in either wrist. The fourth and fifth metacarpals are short on the right. The third and fourth metacarpals are short on the left. Supporting Subjective Information Below: Past Medical History: No past medical history on file. Past Surgical History: PAST SURGICAL HISTORY Procedure Laterality Date LIGATE FALLOPIAN TUBE Bilateral PAST SURGICAL HISTORY OF Right 1966 right knee surgery Family History: No family history on file. Social History: Social History Tobacco Use Smoking status: Former Types: Cigarettes Smokeless tobacco: Never Substance Use Topics Alcohol use: Never Drug use: Never Medications: No current outpatient medications on file. No current facility-administered medications for this visit. Allergies: Patient has no known allergies. ROS: General (negative for fatigue, malaise, weight loss/gain) HEENT (negative for headache, earache, recent vision changes, sinus pain, sore throat) Respiratory (no recent shortness of breath, hemoptysis) CV (negative for chest tightness, palpitations) Musculoskeletal (see HPI) Psych (no depression, anxiety) Mike Gage [place] [id number] Telephone encounter Note * Telephone Encounter - Marily Kuhn MA - 11/09/2023 10:51 AM EDT Patient has an appointment with Dr. Gage on Monday 11/13 for wrist pain. Need to know laterality for x-ray order. Left message for patient to call office. [facility] note* Diagnosis Pain in both wrists Pain in joint, forearm documented in this encounter [facility]* Diagnosis Primary osteoarthritis of both first carpometacarpal joints- Primary Primary localized osteoarthrosis, hand Primary osteoarthritis of both first carpometacarpal joints Primary localized osteoarthrosis, hand documented in this encounter [facility] note* Diagnosis Pain in both wrists- Primary Pain in joint, forearm Primary osteoarthritis of both first carpometacarpal joints Primary localized osteoarthrosis, hand Right wrist pain Pain in joint, forearm Pain in both wrists Pain in joint, forearm Primary osteoarthritis of both first carpometacarpal joints Primary localized osteoarthrosis, hand documented in this encounter [facility] note* Diagnosis SOB (shortness of breath)- Primary Shortness of breath Acute cough FUO (fever of unknown origin) Fever, unspecified documented in this encounter [facility] for referral (narrative)* Diagnostic Procedure Only (Routine) - Closed Specialty Diagnoses / Procedures Referred By Abdiel tello Referred To Contact XR IMAGING Diagnoses Pain in both wrists Procedures XR WRIST GENERAL 3V PA/LAT/OBL BILATERAL RADEX WRIST COMPLETE MINIMUM 3 VIEWS Mike Gage MD [address] [facility] [place] [address] [place] [address] Referral ID Status Reason Start Date Expiration Date V isits Requested Visits Authorized [id number] Closed Auto-Generate d Referral 11/14/2023 12/13/2024 1 1 [facility] [place] for referral (narrative)No reason for referral information availableWSelect [facility] Work Phone: Reason for visit Narrative* Diagnostic Procedure Only (Routine) - Closed Specialty Diagnoses / Procedures Referred By Abdiel tello Referred To Contact XR IMAGING Diagnoses Pain in both wrists Procedures XR WRIST GENERAL 3V PA/LAT/OBL BILATERAL RADEX WRIST COMPLETE MINIMUM 3 VIEWS Mike Gage MD [address] [place] [address] [place] [address] Referral ID Status Reason Start Date Expiration Date V isits Requested Visits Authorized [id number] Closed Auto-Generate d Referral 11/14/2023 12/13/2024 1 1 [facility] Reason for Referral Specialty Diagnoses / Procedures Referred By Contac t Referred To Contact [facility] Diagnoses Primary osteoarthritis of both first carpometacarpal joints Procedures 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 LOADER OCCUPATIONAL THERAPY EVAL HIGH COMPLEX 60 MINS Traci Ca PA-C [address] [place] [address] [facility] [place] [address] [place] [address] Referral ID Status Reason Start Date Expiration Date Visits Requested Visits Authorized [id number] Authorized Auto-Generat ed Referral 11/15/2023 11/14/2024 1 1 Summary Purpose Family History Relationship Condition Age at Onset Recorded Date/T hyacinth mother Hypertension Unknown father Cerebrovascular accident (CVA) Unknown Advance Directives Advance Directive Response Recorded Date/ Time Living Will No May 17 9:51pm Power of Information Resource Consultant No May 17 9:51pm Advance Directive Response Recorded Date/ Time Living Will No May 17 9:51pm Do you have a Healthcare Power of Information Resource Consultant? No May 17, 2024 9:51pm Chief Complaint and Reason for Visit Chief Complaint Admit Date FEVER May 17, 2024 7: 11pm RSV, HYPOXIA May 17, 2024 7: 12pm RSV, HYPOXIA May 18, 2024 6 :25pm RSV, HYPOXIA May 19, 2024 1 :18pm SOB July 03, 2024 9:44am Reason for Visit Admit Date RSV (respiratory syncytial virus infecti on) May 17, 2024 7:12pm Chief Complaint Admit Date FEVER May 17, 2024 7: 11pm RSV, HYPOXIA May 17, 2024 7: 12pm RSV, HYPOXIA May 18, 2024 6 :25pm RSV, HYPOXIA May 19, 2024 1 :18pm SOB July 03, 2024 9:44am SMOKER July 19, 2024 1:0 4pm Additional Source Comments Source Comments (unrecognize d section and content) In the event this informatio n is protected by the Federal Confidentiality of Alcohol and Drug Abuse Patient Records regulations: The Federal rules restrict any use of the information to criminally investigate or prosecute any alcohol or drug abuse patient.[facility] the event this information is protected by the Federal Confidentiality of Alcohol and Drug Abuse Patient Records regulations: The Federal rules restrict any use of the information to criminally investigate or prosecute any alcohol or drug abuse patient.[facility] RehabilitationIn the event this information is protected by the Federal Confidentiality of Alcohol and Drug Abuse Patient Records regulations: The Federal rules restrict any use of the information to criminally investigate or prosecute any alcohol or drug abuse patient.[facility] RehabilitationIn the event this information is protected by the Federal Confidentiality of Alcohol and Drug Abuse Patient Records regulations: The Federal rules restrict any use of the information to criminally investigate or prosecute any alcohol or drug abuse patient.[facility] RehabilitationIn the event this information is protected by the Federal Confidentiality of Alcohol and Drug Abuse Patient Records regulations: The Federal rules restrict any use of the information to criminally investigate or prosecute any alcohol or drug abuse patient.[facility] RehabilitationIn the event this information is protected by the Federal Confidentiality of Alcohol and Drug Abuse Patient Records regulations: The Federal rules restrict any use of the information to criminally investigate or prosecute any alcohol or drug abuse patient.[facility] RehabilitationIn the event this information is protected by the Federal Confidentiality of Alcohol and Drug Abuse Patient Records regulations: The Federal rules restrict any use of the information to criminally investigate or prosecute any alcohol or drug abuse patient.[facility] Reason for Visit (unrecogniz ed section and content) Reason Comments Chart prep Reason Comments Schedule Surgery Reason Comments New Pain Reason Comments Surgery Cancelled Reason Comments Cough Chest congestion, SCHUMACHER , fatigue INFORMATION SOURCE (unrecogn ized section and content) DATE CREATED AUTHOR 05/23/2024 [facility] DATE CREATED AUTHOR AUTHOR'S ORGANIZ ATION 08/01/2024 [facility] Care Teams (unrecognized sec tion and content) Team Status: Active Member Role Status Dates Dr. Juan David Ingram MD Primary Care Provider Active Team Status: Active Member Role Status Dates No Primary Care Physician Primary Care Provider Active Start: May 17, 2024 Dr. Yeison Anderson MD Emergency Provider Active Sta rt: May 17, 2024 Dr. Sharona Sequeira MD Attending Provider Active Start: May 17, 2024 Team Status: Inactive Member Role Status Dates No Primary Care Physician Primary Care Provider Active Start: May 17, 2024 End: May 19, 2024 Dr. Yeison Anderson MD Emergency Provider Active Sta rt: May 17, 2024 End: May 19, 2024 Dr. Sharona Sequeira MD Admit Provider Active St art: May 17, 2024 End: May 19, 2024 Dr. Sharona Sequeira MD Other Provider Active St art: May 17, 2024 End: May 19, 2024 Dr. Laith Whelan DO Attending Provider Active Start: May 17, 2024 End: May 19, 2024 Team Status: Active Member Role Status Dates No Primary Care Physician Primary Care Provider Active Start: May 18, 2024 Dr. Yeison Anderson MD Emergency Provider Active Sta rt: May 18, 2024 Dr. Sharona Sequeira MD Admit Provider Active St art: May 18, 2024 Dr. Sharona Sequeira MD Other Provider Active St art: May 18, 2024 Dr. Laith Whelan DO Attending Provider Active Start: May 18, 2024 Dr. Laith Whelan DO Other Provider Active S tart: May 18, 2024 Team Status: Active Member Role Status Dates No Primary Care Physician Primary Care Provider Active Start: May 19, 2024 Dr. Yeison Anderson MD Emergency Provider Active Sta rt: May 19, 2024 Dr. Sharona Sequeira MD Admit Provider Active St art: May 19, 2024 Dr. Sharona Sequeira MD Other Provider Active St art: May 19, 2024 Dr. Laith Whelan DO Attending Provider Active Start: May 19, 2024 Dr. Laith Tereletsky , DO Other Provider Active S tart: May 19, 2024 Team Status: Inactive Member Role Status Dates No Primary Care Physician Primary Care Provider Active Start: June 12, 2024 End: June 12, 2024 Dr. Juan David Ingram MD Attending Provider Active Start: June 12, 2024 End: June 12, 2024 Dr. Juan David Ingram MD Referring Provider Active Start: June 12, 2024 End: June 12, 2024 Team Status: Inactive Member Role Status Dates Dr. Juan David Ingram MD Primary Care Provider Active Start: July 03, 2024 End: July 03, 2024 Dr. Juan David Ingram MD Attending Provider Active Start: July 03, 2024 End: July 03, 2024 Dr. Juan David Ingram MD Referring Provider Active Start: July 03, 2024 End: July 03, 2024 Team Status: Inactive Member Role Status Dates Dr. Juan David Ingram MD Primary Care Provider Active Start: July 19, 2024 End: July 19, 2024 Dr. Juan David Ingram MD Attending Provider Active Start: July 19, 2024 End: July 19, 2024 Dr. Juan David Ingram MD Referring Provider Active Start: July 19, 2024 End: July 19, 2024 FOR RECORDS PERTAINING TO PATIENTS WHO ARE OR HAVE BEEN ENROLLED IN A CHEMICAL DEPENDENCY/SUBSTANCEABUSE PROGRAM, SOME INFORMATION MAY BE OMITTED. This clinical summary was aggregated from multiple sources. Caution should be exercised in using it in the provision of clinical care. This summary normalizes information from multiple sources, and as a consequence, information in this document may materially change the coding, format and clinical context of patient data. In addition, data may be omitted in some cases. CLINICAL DECISIONS SHOULD BE BASED ON THE PRIMARY CLINICAL RECORDS. [employer] [facility]. provides no warranty or guarantee of the accuracy or completeness of information in this document.
--- OUTSIDE RECORDS SUMMARY | 2024-12-11 19:17 | XMS RPT_ITS | CCD ---
Author Organization [facility] Providers Care Solderer Torch Name Role Phone Unavailable Primary Care Provider [...] Unavailable Dr. Yeison Anderson MD Emergency Provider Dr. Sharona Sequeira MD Attending Provider Hua CARO, Dr. Sharona Turner Admit Provider Dr. Sharona Sequeira MD Other Provider Dr. Laith Whelan DO Attending Provider Dr. Laith Whelan DO Other Provider Dr. Juan David Ingram MD, Chi Attending Provider [phone] Dr. Juan David Ingram MD, Chi Referring Provider Dr. Juan David Ingram MD, Chi Primary Care Provider Medications Current Medications Medication Drug Class(es) Dates Sig (Normalized) Sig (Original) [id number] 200 actuat albuterol 0.09 mg/actuat metered dose [...] Screeningon 07-19-[address] Lung Screening [facility] Imaging Services [address] [place], [place] [id number] Low Dose CT Lung Screening MR#: [id number] Acct: [id number] Name: ERLINDA MONREAL Rep #: [id number] : 1950 F 73 From: Rafiq rouse MD PCP: Dr. Juan David Ingram MD Status: [facility] Study: Low Dose CT Lung Screening Date of Exam: 07/19 Exam# [id number] Ordering Dr: Juan David Ingram MD PROCEDURE: [...] potentially significant findings (non-lung cancer) Reading Location: [id number] CC: Dr. Juan David Ingram MD Senior Java Software Engineer: Signed Normal [facility] [id number] DOrdered By: Cornelio Ingram on 06-12-2024 Vitamin D 25-Hydroxy 20.6 ng/mL [facility] Comment on above: Vitamin D 25(OH) Sta tus Range Deficiency <20 ng/mL (50nmol/L) Insufficiency 20 - 30 ng/mL (50 - 75 nmol/L) Sufficiency 30 - 100 ng/mL (75 - 250 nmol/L) Toxicity >100 ng/mL (>250 nmol/L) Absolute neutrophil countOrd ered By: Juan David Ingram on 06-12-2024 Neutrophils (Bld) [#/Vol] 4.6 10*3/uL 2.0-7.7 [facility] Albumin to globulin ratioOrd ered By: Juan David Ingram on 06-12-2024 Albumin/Globulin [Mass ratio] 0.8 {ratio} Low 0.9-2.4 [facility] Basophil percentageOrdered B y: Juan David Ingram on 06-12-2024 Basophils/100 WBC (Bld) 0.8 % 0-1 [facility] Bilirubin, totalOrdered By: Juan David Ingram on 06-12-2024 Bilirubin [Mass/Vol] 0.60 mg/dL 0.20-1.00 [facility] Comment on above: For patients on eltr ombopag therapy, use of Dimension [place] TBIL is not recommended. Blood urea nitrogen (BUN)/cr eatinine ratioOrdered By: Juan David Ingram on 06-12-2024 Urea nitrogen/Creatinine [Mass ratio] 30.4 mg/mg High 10-20 [facility] CBC W/Diff, Automatedon Absolute Lymph 1.80 X10 3/uL Normal 0.83-4.51 [facility] Comment on above: Performed By: #### M 300.4600, M300.4500 #### [facility] [address] [place], [address] Absolute Neut 4.6 X10 3/uL Normal 2.0-7.7 [facility] Comment on above: Performed By: #### M 300.4600, M300.4500 #### [facility] [address] [place], [address] Basophils/100 WBC (Bld) 0.8 % Normal 0-1 [facility] Comment on above: Performed By: #### M 300.4600, M300.4500 #### [facility] [address] [place], [address] Eosinophils/100 WBC (Bld) 4.3 % Normal 0-5 [facility] Comment on above: Performed By: #### M 300.4600, M300.4500 #### [facility] [address] [place], [address] Erythrocyte distribution width (RBC) [Ratio] 13.4 % Normal 11.6-14.6 [facility] Comment on above: Performed By: #### M 300.4600, M300.4500 #### [facility] [address] [place], [address] Hematocrit (Bld) [Volume fraction] 41.0 % Normal 37-47 [facility] Comment on above: Performed By: #### M 300.4600, M300.4500 #### [facility] [address] [place], [address] Hemoglobin (Bld) [Mass/Vol] 13.2 g/dL Normal 12.0-15.0 [facility] Comment on above: Performed By: #### M 300.4600, M300.4500 #### [facility] [address] [place], [address] IG% 0.400 Normal 0.0-0.9 [facility] Comment on above: Result Comment: IG% - Immature Granulocytes (promyelocytes, myelocytes and metamyelocytes) > 1% indicates that a LEFT SHIFT is Present. Performed By: #### M 300.4600, M300.4500 #### [facility] [address] [place], [address] Lymphocytes/100 WBC (Bld) 25.0 % Normal 19-41 [facility] Comment on above: Performed By: #### M 300.4600, M300.4500 #### [facility] [address] [place], [address] MCH (RBC) [Entitic mass] 29.9 pg Normal 27.0-32.0 [facility] Comment on above: Performed By: #### M 300.4600, M300.4500 #### [facility] [address] [place], [address] MCHC (RBC) [Mass/Vol] 32.2 g/dL Normal 32-36 [facility] Comment on above: Performed By: #### M 300.4600, M300.4500 #### [facility] [address] [place], [address] MCV (RBC) [Entitic vol] 92.8 fL Normal 81-99 [facility] Comment on above: Performed By: #### M 300.4600, M300.4500 #### [facility] [address] [place], [address] Monocytes/100 WBC (Bld) 6.1 % Normal 0-10 [facility] Comment on above: Performed By: #### M 300.4600, M300.4500 #### [facility] [address] [place], [address] Neutrophils/100 WBC (Bld) 63.4 % Normal 47-70 [facility] Comment on above: Performed By: #### M 300.4600, M300.4500 #### [facility] [address] [place], [address] Nucleated RBC (Bld) [#/Vol] 0 10*3/uL Normal 0-5 [facility] Comment on above: Performed By: #### M 300.4600, M300.4500 #### [facility] [address] [place], [address] Platelet mean volume (Bld) [Entitic vol] 9.8 fL Normal 6.2-12.0 [facility] Comment on above: Performed By: #### M 300.4600, M300.4500 #### [facility] [address] [place], [address] Platelets (Bld) [#/Vol] 283 10*3/uL Normal 150-450 [facility] Comment on above: Performed By: #### M 300.4600, M300.4500 #### [facility] [address] [place], [address] RBC (Bld) [#/Vol] 4.42 10*6/uL Normal 4.2-5.4 [facility] Comment on above: Performed By: #### M 300.4600, M300.4500 #### [facility] [address] [place], [address] RDW SD 45.7 fl High 35.1-43.9 [facility] Comment on above: Performed By: #### M 300.4600, M300.4500 #### [facility] [address] [place], [address] WBC (Bld) [#/Vol] 7.2 10*3/uL Normal 4.4-11.0 [facility] Comment on above: Performed By: #### M 300.4600, M300.4500 #### [facility] [address] [place], [address] Carbon dioxide measurementOr dered By: Juan David Ingram on 06-12-2024 CO2 [Moles/Vol] 26.0 mmol/L 21.0-32.0 [facility] Chloride measurementOrdered By: Juan David Ingram on 06-12-2024 Chloride [Moles/Vol] 106 mmol/L 98-107 [facility] Comprehensive Metabolic Prof ilon 06-12-2024 Albumin [Mass/Vol] 3.1 g/dL Low 3.2-5.0 [facility] Comment on above: Performed By: #### M 300.4600, M300.4500 #### [facility] [address] [place], [address] Albumin/Globulin [Mass ratio] 0.8 {ratio} Low 0.9-2.4 [facility] Comment on above: Performed By: #### M 300.4600, M300.4500 #### [facility] [address] [place], [address] ALK P 77 U/L Normal 45-117 [facility] Comment on above: Performed By: #### M 300.4600, M300.4500 #### [facility] [address] [place], [address] ALT [Catalytic activity/Vol] 16 U/L Normal 13-56 [facility] Comment on above: Performed By: #### M 300.4600, M300.4500 #### [facility] [address] [place], [address] AST [Catalytic activity/Vol] 17 U/L Normal 15-37 [facility] Comment on above: Performed By: #### M 300.4600, M300.4500 #### [facility] [address] [place], [address] Bilirubin [Mass/Vol] 0.60 mg/dL Normal 0.20-1.00 [facility] Comment on above: Result Comment: For patients on eltrombopag therapy, use of Dimension [place] TBIL is not recommended. Performed By: #### M 300.4600, M300.4500 #### [facility] [address] [place], [address] BUN/CRE 30.4 RATIO High 10-20 [facility] Comment on above: Performed By: #### M 300.4600, M300.4500 #### [facility] [address] [place], [address] CA,Total 9.4 mg/dL Normal 8.5-10.1 [facility] Comment on above: Performed By: #### M 300.4600, M300.4500 #### [facility] [address] [place], [address] Chloride [Moles/Vol] 106 mmol/L Normal 98-107 [facility] Comment on above: Performed By: #### M 300.4600, M300.4500 #### [facility] [address] [place], [address] CO2 [Moles/Vol] 26.0 mmol/L Normal 21.0-32.0 [facility] Comment on above: Performed By: #### M 300.4600, M300.4500 #### [facility] [address] [place], [address] Creatinine [Mass/Vol] 0.69 mg/dL Normal 0.55-1.02 [facility] Comment on above: Result Comment: The validity of the calculated GFR GFRAA in patients over 70 years has not been determined. Clinical correlation is essential. Performed By: #### M 300.4600, M300.4500 #### [facility] [address] [place], [address] EST GFR - AA 107 mL/min Normal >60 [facility] Comment on above: Result Comment: Afri can Niuean GFR Calc Performed By: #### M 300.4600, M300.4500 #### [facility] [address] [place], [address] GAP 7 Normal 5-15 [facility] Comment on above: Performed By: #### M 300.4600, M300.4500 #### [facility] [address] [place], [address] GFR/1.73 sq M.predicted among non-blacks MDRD (S/P/Bld) [Vol rate/Area] 88 mL/min/{1.73_m2} Normal >60 [facility] Comment on above: Result Comment: Non- GFR Calc Performed By: #### M 300.4600, M300.4500 #### [facility] [address] [place], [address] Globulin (S) [Mass/Vol] 3.7 g/dL Normal 2.2-4.2 [facility] Comment on above: Performed By: #### M 300.4600, M300.4500 #### [facility] [address] [place], [address] Glucose [Mass/Vol] 105 mg/dL Normal 74-106 [facility] Comment on above: Result Comment: Fast ing Glucose result from 100 to 125 mg/dL suggests IMPAIRED HOMEOSTASIS per A.D.A. criteria. Performed By: #### M 300.4600, M300.4500 #### [facility] [address] [place], [address] Potassium [Moles/Vol] 3.8 mmol/L Normal 3.5-5.1 [facility] Comment on above: Performed By: #### M 300.4600, M300.4500 #### [facility] [address] [place], [address] Sodium [Moles/Vol] 139 mmol/L Normal 136-145 [facility] Comment on above: Performed By: #### M 300.4600, M300.4500 #### [facility] [address] [place], [address] T PROT 6.8 g/dL Normal 6.4-8.2 [facility] Comment on above: Performed By: #### M 300.4600, M300.4500 #### [facility] [address] [place], [address] Urea nitrogen [Mass/Vol] 21 mg/dL High 7-18 [facility] Comment on above: Performed By: #### M 300.4600, M300.4500 #### [facility] [address] [place], [address] Eosinophil percentageOrdered By: [facility] Juan Jose on 06-12-2024 Eosinophils/100 WBC (Bld) 4.3 % 0-5 [facility] Erythrocyte distribution wid th ratioOrdered By: [facility] Vistaok on 06-12-2024 Erythrocyte distribution width (RBC) [Ratio] 13.4 % 11.6-14.6 [facility] Erythrocyte distribution wid th standard deviationOrdered By: [facility] on 06-12-2024 Erythrocyte distribution width (RBC) [Entitic vol] 45.7 fL High 35.1-43.9 [facility] Estimated glomerular filtrat ion rate (GFR) AmericanOrdered By: [facility] on 06-12-2024 Estimated GFR (MDRD) Amer 107 mL/min >60 [facility] Comment on above: GFR Calc Glomerular filtration rate ( GFR) estimationOrdered By: [facility] on 06-12-2024 Estimated GFR (MDRD) Non-Af Amer 88 mL/min >60 [facility] Comment on above: Non- GFR Calc Glucose measurementOrdered B y: Juan David Ingram on 06-12-2024 Glucose [Mass/Vol] 105 mg/dL 74-106 [facility] Comment on above: Fasting Glucose resu lt from 100 to 125 mg/dL suggests IMPAIRED HOMEOSTASIS per A.D.A. criteria. Hematocrit Auto (Bld) [Volum e fraction]Ordered By: [facility] on 06-12-2024 Hematocrit (Bld) [Volume fraction] 41.0 % 37-47 [facility] Hemoglobin measurementOrdere d By: [facility] on 06-12-2024 Hemoglobin (Bld) [Mass/Vol] 13.2 g/dL 12.0-15.0 [facility] Hepatitis C Antibodyon 06-12 Hepatitis C AB Non-Reactive Normal Nonreactive [facility] Comment on above: Result Comment: Non Reactive: < 0.8 Equivocal: >/= 0.8 to < 1.0 Reactive: >/= 1.0 The CDC requires that a reactive/equivocal HCV antibody result be sent out for confirmation. HCV Quant by PCR testing. Performed By: #### M 300.2528, M300.6010 #### [facility] [place], [address] Hepatitis C virus antibody a ssayOrdered By: Juan David Ingram on 06-12-2024 Hepatitis C Antibody Non-Reactive Nonreactive [facility] Comment on above: Non Reactive: < 0.8 Equivocal: >/= 0.8 to < 1.0 Reactive: >/= 1.0The [facility] [place] requires that a reactive/equivocal HCV antibody result be sent out for confirmation. HCV Quant by PCR testing. High density lipoprotein (HD L) measurementOrdered By: Juan David Ingram on 06-12-2024 Cholesterol in HDL [Mass/Vol] 70 mg/dL >40 [facility] Comment on above: The drugs N-Acetylcy steine and Metamizole may falsely depress this assay. Reference Range HDL <40 mg/dL Low HDL Cholesterol HDL >or= 60 mg/dL High HDL Cholesterol Immature granulocytes/100 WB C Auto (Bld)Ordered By: Juan David Ingram on 06-12-2024 Immature granulocytes/100 WBC (Bld) 0.400 % 0.0-0.9 [facility] Comment on above: IG% - Immature Granu locytes (promyelocytes, myelocytes and metamyelocytes) > 1% indicates that a LEFT SHIFT is Present. Laboratory - Chemistry and C hemistry - challengeOrdered By: Juan David Ingram on 06-12-2024 AST [Catalytic activity/Vol] 17 U/L 15-37 [facility] Lipid Profileon 06-12-2024 Cholesterol [Mass/Vol] 235 mg/dL High 200 [facility] Comment on above: Result Comment: <200 mg/dL Desirable 200-240 mg/dL Borderline >240 mg/dL High Risk Performed By: #### M 300.4600, M300.4500 #### [facility] [address] [place], [address] Cholesterol in HDL [Mass/Vol] 70 mg/dL Normal [facility] Comment on above: Result Comment: The drugs N-Acetylcysteine and Metamizole may falsely depress this assay. Reference Range HDL <40 mg/dL Low HDL Cholesterol HDL >or= 60 mg/dL High HDL Cholesterol Performed By: #### M 300.4600, M300.4500 #### [facility] [address] [place], [address] Cholesterol in LDL [Mass/Vol] 148 mg/dL High 0-130 [facility] Comment on above: Performed By: #### M 300.4600, M300.4500 #### [facility] [address] [place], [address] Cholesterol in VLDL [Mass/Vol] 17 mg/dL Normal 5-40 [facility] Comment on above: Performed By: #### M 300.4600, M300.4500 #### [facility] [address] [place], [address] Triglyceride [Mass/Vol] 84 mg/dL Normal [facility] Comment on above: Result Comment: The drugs N-Acetylcysteine and Metamizole may falsely depress this assay. Serum Triglycerides Reference Interval Normal <150 mg/dL Borderline high 150 - 199 mg/dL High 200 - 499 mg/dL Very High > or = 500 mg/dL Performed By: #### M 300.4600, M300.4500 #### [facility] [address] [place], [address] Low density lipoprotein (LDL ) cholesterol measurementOrdered By: Juan David Ingram on 06-12-2024 Cholesterol in LDL [Mass/Vol] 148 mg/dL High 0-130 [facility] Lymphocytes Auto (Unsp spec) [#/Vol]Ordered By: Juan David Ingram on 06-12-2024 Lymphocytes (Bld) [#/Vol] 1.80 10*3/uL 0.83-4.51 [facility] Lymphocytes/100 WBC Auto (Un sp spec)Ordered By: Juan David Ingram on 06-12-2024 Lymphocytes/100 WBC (Bld) 25.0 % 19-41 [facility] MCV (mean corpuscular volume ) determinationOrdered By: Juan David Ingram on 06-12-2024 MCV (RBC) [Entitic vol] 92.8 fL 81-99 [facility] Mean corpuscular hemoglobin (MCH) determinationOrdered By: Juan David Ingram on 06-12-2024 MCH (RBC) [Entitic mass] 29.9 pg 27.0-32.0 [facility] Mean corpuscular hemoglobin concentration (MCHC) determinationOrdered By: Juan David Ingram on 06-12-2024 MCHC (RBC) [Mass/Vol] 32.2 g/dL 32-36 [facility] Mean platelet volume determi nationOrdered By: Juan David Ingram on 06-12-2024 Platelet mean volume (Bld) [Entitic vol] 9.8 fL 6.2-12.0 [facility] Monocyte percentageOrdered B y: Juan David Ingram on 06-12-2024 Monocytes/100 WBC (Bld) 6.1 % 0-10 [facility] Neutrophil percentageOrdered By: Juan David Ingram on 06-12-2024 Neutrophils/100 WBC (Bld) 63.4 % 47-70 [facility] Nucleated red blood cell per centageOrdered By: Juan David Ingram on 06-12-2024 Nucleated RBC/100 WBC (Bld) [Ratio] 0 % 0-5 [facility] Platelet countOrdered By: Atif Ingram on 06-12-2024 Platelets (Bld) [#/Vol] 283 10*3/uL 150-450 [facility] Potassium measurementOrdered By: Juan David Ingram 06-12-2024 Potassium [Moles/Vol] 3.8 mmol/L 3.5-5.1 [facility] RBC Auto (Bld) [#/Vol]Ordere d By: Juan David Ingram on 06-12-2024 RBC (Bld) [#/Vol] 4.42 10*6/uL 4.2-5.4 [facility] Serum anion gap measurementO rdered By: Juan David Ingram on 06-12-2024 Anion gap [Moles/Vol] 7 mmol/L 5-15 [facility] Serum globulin measurementOr dered By: Juan David Ingram 06-12-2024 Globulin (S) [Mass/Vol] 3.7 g/dL 2.2-4.2 [facility] Serum or plasma alanine grant otransferase (ALT) measurementOrdered By: Juan David Ingram 06-12-2024 ALT [Catalytic activity/Vol] 16 U/L 13-56 [facility] Serum or plasma albumin zari urement (mass/volume)Ordered By: Juan David Ingram on 06-12-2024 Albumin [Mass/Vol] 3.1 g/dL Low 3.2-5.0 [facility] Serum or plasma alkaline keven sphatase measurementOrdered By: Juan David Ingram on 06-12-2024 ALP [Catalytic activity/Vol] 77 U/L 45-117 [facility] Serum or plasma calcium zari urement (mass/volume)Ordered By: Juan David Ingram on 06-12-2024 Calcium [Mass/Vol] 9.4 mg/dL 8.5-10.1 [facility] Serum or plasma cholesterol measurement (mass/volume)Ordered By: Juan David Ingram on 06-12-2024 Cholesterol [Mass/Vol] 235 mg/dL High <200 [facility] Comment on above: <200 mg/dL Desirable 200-240 mg/dL Borderline >240 mg/dL High Risk Serum or plasma creatinine m easurement (mass/volume)Ordered By: Juan David Ingram on 06-12-2024 Creatinine [Mass/Vol] 0.69 mg/dL 0.55-1.02 [facility] Comment on above: The validity of the calculated GFR & GFRAA in patients over 70 years has not been determined. Clinical correlation is essential. Serum or plasma urea nitroge n measurement (mass/volume)Ordered By: Juan David Ingram on 06-12-2024 Urea nitrogen [Mass/Vol] 21 mg/dL High 7-18 [facility] Sodium levelOrdered By: Juan David Ingram on 06-12-2024 Sodium [Moles/Vol] 139 mmol/L 136-145 [facility] TSH QnOrdered By: Juan David Ingram o n 06-12-2024 Thyroid Stimulating Hormone (TSH) 1.540 uIU/mL 0.358-3.740 [facility] Thyroid Stim Hormone (TSH)on 06-12-2024 TSH 1.540 uIU/mL Normal 0.358-3.740 [facility] Comment on above: Performed By: #### M 300.8209, M300.4140 #### [facility] [place], [address] Total proteinOrdered By: Juan David Ingram on 06-12-2024 Protein [Mass/Vol] 6.8 g/dL 6.4-8.2 [facility] Triglycerides measurementOrd ered By: Juan David Ingram on 06-12-2024 Triglyceride [Mass/Vol] 84 mg/dL <199 [facility] Comment on above: The drugs N-Acetylcy steine and Metamizole may falsely depress this assay.Serum Triglycerides Reference Interval Normal <150 mg/dL Borderline high 150 - 199 mg/dL High 200 - 499 mg/dL Very High > or = 500 mg/dL Very low density lipoprotein (VLDL) cholesterol measurementOrdered By: Juan David Ingram on 06-12-2024 VLDL Cholesterol 17 mg/dL 5-40 [facility] Vitamin D,25 Hydroxyon 06-12 Vitamin D 25-OH 20.6 ng/mL Normal [facility] Comment on above: Result Comment: Aline min D 25(OH) Status Range Deficiency <20 ng/mL (50nmol/L) Insufficiency 20 - 30 ng/mL (50 - 75 nmol/L) Sufficiency 30 - 100 ng/mL (75 - 250 nmol/L) Toxicity >100 ng/mL (>250 nmol/L) Performed By: #### M 300.4600, M300.4500 #### [facility] [address] [place], [address] White blood cell (WBC) count Ordered By: Juan David Ingram on 06-12-2024 WBC (Bld) [#/Vol] 7.2 10*3/uL 4.4-11.0 [facility] Discharge Instructionon 05-09 Discharge Instruction [facility] Medical Records Department [address] [place] [address] Instructions for Home/Discharge Instructions 05/19/24 1312 MR#: [id number] Acct: [id number] Name: ERLINDA MONREAL Rep #: [id number] : [id number] 73 From: Laith Whelan DO [...] MD; No Primary Care Physician Signed Normal [facility] Absolute neutrophil countOrd ered By: Sharona Sequeira on 05-18-2024 Neutrophils (Bld) [#/Vol] 11.7 10*3/uL High 2.0-7.7 [facility] Albumin to globulin ratioOrd ered By: Sharona Sequeira on 05-18-2024 Albumin/Globulin [Mass ratio] 0.8 {ratio} Low 0.9-2.4 [facility] Basophil percentageOrdered B y: Sharona Hua on 05-18-2024 Basophils/100 WBC (Bld) 0.3 % 0-1 [facility] Bilirubin, totalOrdered By: Sharona Hua on 05-18-2024 Bilirubin [Mass/Vol] 0.80 mg/dL 0.20-1.00 [facility] Comment on above: For patients on eltr ombopag therapy, use of Dimension [place] TBIL is not recommended. Blood urea nitrogen (BUN)/cr eatinine ratioOrdered By: Sharona Hua on 05-18-2024 Urea nitrogen/Creatinine [Mass ratio] 25.0 mg/mg High 10-20 [facility] CBC W/Diff, Automatedon 05-09 Absolute Lymph 1.06 X10 3/uL Normal 0.83-4.51 [facility] Comment on above: Performed By: #### M 300.4600, M300.4500 #### [facility] [address] [place], [place], [address] Absolute Neut 11.7 X10 3/uL High 2.0-7.7 [facility] Comment on above: Performed By: #### M 300.4600, M300.4500 #### [facility] [address] [place], [address] Basophils/100 WBC (Bld) 0.3 % Normal 0-1 [facility] Comment on above: Performed By: #### M 300.4600, M300.4500 #### [facility] [address] [place], [address] Eosinophils/100 WBC (Bld) 7.1 % High 0-5 [facility] Comment on above: Performed By: #### M 300.4600, M300.4500 #### [facility] [address] [place], [address] Erythrocyte distribution width (RBC) [Ratio] 13.3 % Normal 11.6-14.6 [facility] Comment on above: Performed By: #### M 300.4600, M300.4500 #### [facility] [address] [place], [address] Hematocrit (Bld) [Volume fraction] 42.2 % Normal 37-47 [facility] Comment on above: Performed By: #### M 300.4600, M300.4500 #### [facility] [address] [place], [address] Hemoglobin (Bld) [Mass/Vol] 14.1 g/dL Normal 12.0-15.0 [facility] Comment on above: Performed By: #### M 300.4600, M300.4500 #### [facility] [address] [place], [address] IG% 0.800 Normal 0.0-0.9 [facility] Comment on above: Result Comment: IG% - Immature Granulocytes (promyelocytes, myelocytes and metamyelocytes) > 1% indicates that a LEFT SHIFT is Present. Performed By: #### M 300.4600, M300.4500 #### [facility] [address] [place], [address] Lymphocytes/100 WBC (Bld) 7.4 % Low 19-41 [facility] Comment on above: Performed By: #### M 300.4600, M300.4500 #### [facility] [address] [place], [address] MCH (RBC) [Entitic mass] 30.8 pg Normal 27.0-32.0 [facility] Comment on above: Performed By: #### M 300.4600, M300.4500 #### [facility] [address] [place], [address] MCHC (RBC) [Mass/Vol] 33.4 g/dL Normal 32-36 [facility] Comment on above: Performed By: #### M 300.4600, M300.4500 #### [facility] [address] [place], [address] MCV (RBC) [Entitic vol] 92.1 fL Normal 81-99 [facility] Comment on above: Performed By: #### M 300.4600, M300.4500 #### [facility] [address] [place], [address] Monocytes/100 WBC (Bld) 2.7 % Normal 0-10 [facility] Comment on above: Performed By: #### M 300.4600, M300.4500 #### [facility] [address] [place], [address] Neutrophils/100 WBC (Bld) 81.7 % High 47-70 [facility] Comment on above: Performed By: #### M 300.4600, M300.4500 #### [facility] [address] [place], [address] Nucleated RBC (Bld) [#/Vol] 0 10*3/uL Normal 0-5 [facility] Comment on above: Performed By: #### M 300.4600, M300.4500 #### [facility] [address] [place], [address] Platelet mean volume (Bld) [Entitic vol] 9.9 fL Normal 6.2-12.0 [facility] Comment on above: Performed By: #### M 300.4600, M300.4500 #### [facility] [address] [place], [address] Platelets (Bld) [#/Vol] 219 10*3/uL Normal 150-450 [facility] Comment on above: Performed By: #### M 300.4600, M300.4500 #### [facility] [address] [place], [address] RBC (Bld) [#/Vol] 4.58 10*6/uL Normal 4.2-5.4 [facility] Comment on above: Performed By: #### M 300.4600, M300.4500 #### [facility] [address] [place], [address] RDW SD 45.1 fl High 35.1-43.9 [facility] Comment on above: Performed By: #### M 300.4600, M300.4500 #### [facility] [address] [place], [address] WBC (Bld) [#/Vol] 14.3 10*3/uL High 4.4-11.0 [facility] Comment on above: Performed By: #### M 300.4600, M300.4500 #### [facility] [address] [place], [address] Carbon dioxide measurementOr dered By: Sharona Sequeira on 05-18-2024 CO2 [Moles/Vol] 22.0 mmol/L 21.0-32.0 [facility] Chloride measurementOrdered By: Sharona Sequeira on 05-18-2024 Chloride [Moles/Vol] 107 mmol/L 98-107 [facility] Comprehensive Metabolic Prof ilon 05-18-2024 Albumin [Mass/Vol] 2.8 g/dL Low 3.2-5.0 [facility] Comment on above: Performed By: #### M 300.4600, M300.4500 #### [facility] [address] [place], [address] Albumin/Globulin [Mass ratio] 0.8 {ratio} Low 0.9-2.4 [facility] Comment on above: Performed By: #### M 300.4600, M300.4500 #### [facility] [address] [place], [address] ALK P 83 U/L Normal 45-117 [facility] Comment on above: Performed By: #### M 300.4600, M300.4500 #### [facility] [address] [place], [address] ALT [Catalytic activity/Vol] 21 U/L Normal 13-56 [facility] Comment on above: Performed By: #### M 300.4600, M300.4500 #### [facility] [address] [place], [address] AST [Catalytic activity/Vol] 30 U/L Normal 15-37 [facility] Comment on above: Performed By: #### M 300.4600, M300.4500 #### [facility] [address] [place], [address] Bilirubin [Mass/Vol] 0.80 mg/dL Normal 0.20-1.00 [facility] Comment on above: Result Comment: For patients on eltrombopag therapy, use of Dimension [place] TBIL is not recommended. Performed By: #### M 300.4600, M300.4500 #### [facility] [address] [place], [address] BUN/CRE 25.0 RATIO High 10-20 [facility] Comment on above: Performed By: #### M 300.4600, M300.4500 #### [facility] [address] [place], [address] CA,Total 9.0 mg/dL Normal 8.5-10.1 [facility] Comment on above: Performed By: #### M 300.4600, M300.4500 #### [facility] [address] [place], [address] Chloride [Moles/Vol] 107 mmol/L Normal 98-107 [facility] Comment on above: Performed By: #### M 300.4600, M300.4500 #### [facility] [address] [place], [address] CO2 [Moles/Vol] 22.0 mmol/L Normal 21.0-32.0 [facility] Comment on above: Performed By: #### M 300.4600, M300.4500 #### [facility] [address] [place], [address] Creatinine [Mass/Vol] 0.80 mg/dL Normal 0.55-1.02 [facility] Comment on above: Result Comment: The validity of the calculated GFR GFRAA in patients over 70 years has not been determined. Clinical correlation is essential. Performed By: #### M 300.4600, M300.4500 #### [facility] [address] [place], [address] ECRCL 48.80 ml/min Normal [facility] Comment on above: Performed By: #### M 300.4600, M300.4500 #### [facility] [address] [place], [address] EST GFR - AA 90 mL/min Normal >60 [facility] Comment on above: Result Comment: Afri can Niuean GFR Calc Performed By: #### M 300.4600, M300.4500 #### [facility] [address] [place], [address] GAP 6 Normal 5-15 [facility] Comment on above: Performed By: #### M 300.4600, M300.4500 #### [facility] [address] [place], [address] GFR/1.73 sq M.predicted among non-blacks MDRD (S/P/Bld) [Vol rate/Area] 75 mL/min/{1.73_m2} Normal >60 [facility] Comment on above: Result Comment: Non- GFR Calc Performed By: #### M 300.4600, M300.4500 #### [facility] [address] [place], [address] Globulin (S) [Mass/Vol] 3.7 g/dL Normal 2.2-4.2 [facility] Comment on above: Performed By: #### M 300.4600, M300.4500 #### [facility] [address] [place], [address] Glucose [Mass/Vol] 193 mg/dL High 74-106 [facility] Comment on above: Result Comment: Fast ing Glucose result greater than or equal to 126 mg/dL suggests DIABETES MELLITUS per A.D.A. criteria. Performed By: #### M 300.4600, M300.4500 #### [facility] [address] [place], [address] Potassium [Moles/Vol] 4.0 mmol/L Normal 3.5-5.1 [facility] Comment on above: Performed By: #### M 300.4600, M300.4500 #### [facility] [address] [place], [address] Sodium [Moles/Vol] 135 mmol/L Low 136-145 [facility] Comment on above: Performed By: #### M 300.4600, M300.4500 #### [facility] [address] [place], [address] T PROT 6.5 g/dL Normal 6.4-8.2 [facility] Comment on above: Performed By: #### M 300.4600, M300.4500 #### [facility] [address] [place], [address] Urea nitrogen [Mass/Vol] 20 mg/dL High 7-18 [facility] Comment on above: Performed By: #### M 300.4600, M300.4500 #### [facility] [address] [place], [address] Eosinophil percentageOrdered By: Sharona Sequeira on 05-18-2024 Eosinophils/100 WBC (Bld) 7.1 % High 0-5 [facility] Erythrocyte distribution wid th ratioOrdered By: Sharona Sequeira on 05-18-2024 Erythrocyte distribution width (RBC) [Ratio] 13.3 % 11.6-14.6 [facility] Erythrocyte distribution wid th standard deviationOrdered By: Sharona Hua on 05-18-2024 Erythrocyte distribution width (RBC) [Entitic vol] 45.1 fL High 35.1-43.9 [facility] Estimated glomerular filtrat ion rate (GFR) AmericanOrdered By: Sharona Sequeira on 05-18-2024 Estimated GFR (MDRD) Amer 90 mL/min >60 [facility] Comment on above: GFR Calc Estimation of creatinine gracie aranceOrdered By: Sharona Sequeira on 05-18-2024 Estimated Creatinine Clearance Calc 48.80 ml/min [facility] Glomerular filtration rate ( GFR) estimationOrdered By: [facility] Hua on 05-18-2024 Estimated GFR (MDRD) Non-Af Amer 75 mL/min >60 [facility] Comment on above: Non- GFR Calc Glucose measurementOrdered B y: Sharona Hua on 05-18-2024 Glucose [Mass/Vol] 193 mg/dL High 74-106 [facility] Comment on above: Fasting Glucose resu lt greater than or equal to 126 mg/dL suggests DIABETES MELLITUS per A.D.A. criteria. Hematocrit Auto (Bld) [Volum e fraction]Ordered By: Sharona Sequeira on 05-18-2024 Hematocrit (Bld) [Volume fraction] 42.2 % 37-47 [facility] Hemoglobin A1con 05-18-2024 HbA1c (Bld) [Mass fraction] 5.6 % Normal 3.8-5.6 [facility] Comment on above: Result Comment: Norm al < 5.7 % Prediabetic 5.7 - 6.4 % Diabetic >or= 6.5 % Please note range changes. Performed By: #### M 300.5114, M300.4212 #### [facility] [address] [place], [address] Hemoglobin A1c percentageOrd ered By: Sharona Sequeira on 05-18-2024 HbA1c (Bld) [Mass fraction] 5.6 % 3.8-5.6 [facility] Comment on above: Normal < 5.7 % Predi abetic 5.7 - 6.4 % Diabetic >or= 6.5 % Please note range changes. Hemoglobin measurementOrdere d By: Sharona Sequeira on 05-18-2024 Hemoglobin (Bld) [Mass/Vol] 14.1 g/dL 12.0-15.0 [facility] Immature granulocytes/100 WB C Auto (Bld)Ordered By: Sharona Seuqeira on 05-18-2024 Immature granulocytes/100 WBC (Bld) 0.800 % 0.0-0.9 [facility] Comment on above: IG% - Immature Granu locytes (promyelocytes, myelocytes and metamyelocytes) > 1% indicates that a LEFT SHIFT is Present. L. pneumophila Ag Ql (U)Orde red By: Sharona Sequeira on 05-18-2024 Legionella Antigen [facility] - Chemistry and C hemistry - challengeOrdered By: Sharona Sequeira on 05-18-2024 AST [Catalytic activity/Vol] 30 U/L 15-37 [facility] Legionella Antigen Urineon 0 05-18-2024 LEGU URINE, CLEAN CATCH Legionella Antigen result interpretation: L pneumo Ag Ur Ql Negative Presumptive negative for Legionella pneumophila serogroup 1 antigen in urine, suggesting no recent or current infection. Legionella Ag, Urine Negative (See interpretation below) Normal [facility] Comment on above: Performed By: #### M 300.2440, M300.4500 #### [facility] [address] [place] [address]. [place], [place], [address] Lymphocytes Auto (Unsp spec) [#/Vol]Ordered By: Sharona Sequeira on 05-18-2024 Lymphocytes (Bld) [#/Vol] 1.06 10*3/uL 0.83-4.51 [facility] Lymphocytes/100 WBC Auto (Un sp spec)Ordered By: Sharona Sequeira on 05-18-2024 Lymphocytes/100 WBC (Bld) 7.4 % Low 19-41 [facility] MCV (mean corpuscular volume ) determinationOrdered By: Sharona Sequeira on 05-18-2024 MCV (RBC) [Entitic vol] 92.1 fL 81-99 [facility] Mean corpuscular hemoglobin (MCH) determinationOrdered By: on 05-18-2024 MCH (RBC) [Entitic mass] 30.8 pg 27.0-32.0 [facility] Mean corpuscular hemoglobin concentration (MCHC) determinationOrdered By: on 05-18-2024 MCHC (RBC) [Mass/Vol] 33.4 g/dL 32-36 [facility] Mean platelet volume determi nationOrdered By: White on 05-18-2024 Platelet mean volume (Bld) [Entitic vol] 9.9 fL 6.2-12.0 [facility] Monocyte percentageOrdered B y: White on 05-18-2024 Monocytes/100 WBC (Bld) 2.7 % 0-10 [facility] Neutrophil percentageOrdered By: White on 05-18-2024 Neutrophils/100 WBC (Bld) 81.7 % High 47-70 [facility] Nucleated red blood cell per centageOrdered By: White on 05-18-2024 Nucleated RBC/100 WBC (Bld) [Ratio] 0 % 0-5 [facility] Platelet countOrdered By: Lesli palacios Hua on 05-18-2024 Platelets (Bld) [#/Vol] 219 10*3/uL 150-450 [facility] Potassium measurementOrdered By: on 05-18-2024 Potassium [Moles/Vol] 4.0 mmol/L 3.5-5.1 [facility] RBC Auto (Bld) [#/Vol]Ordere d By: on 05-18-2024 RBC (Bld) [#/Vol] 4.58 10*6/uL 4.2-5.4 [facility] RESPIRATORY PANEL MOLECULARo n 05-18-2024 RP PANEL Normal Reference Range = Not Detected Resp path DNA+RNA Pnl Resp ANNIKA+probe Nucleic acid amplification test method Resp path DNA+RNA Pnl Resp ANNIKA+probe Copy of report sent to Infection Control Printer [id number] 05/18/24 0902 [facility] ADENOVIRUS Not Detected INFLUENZA A Not Detected [...] RSV B Not Detected RSV A Normal [facility] Comment on above: Performed By: #### M 100.638 #### [facility] [place], [address] Serum anion gap measurementO rdered By: Sharona Sequeira on 05-18-2024 Anion gap [Moles/Vol] 6 mmol/L 5-15 [facility] Serum globulin measurementOr dered By: Sharona Sequeira on 05-18-2024 Globulin (S) [Mass/Vol] 3.7 g/dL 2.2-4.2 [facility] Serum or plasma alanine grant otransferase (ALT) measurementOrdered By: Sharona Sequeira on 05-18-2024 ALT [Catalytic activity/Vol] 21 U/L 13-56 [facility] Serum or plasma albumin zari urement (mass/volume)Ordered By: Sharona Sequeira 05-18-2024 Albumin [Mass/Vol] 2.8 g/dL Low 3.2-5.0 [facility] Serum or plasma alkaline keven sphatase measurementOrdered By: Sharona Sequeira 05-18-2024 ALP [Catalytic activity/Vol] 83 U/L 45-117 [facility] Serum or plasma calcium zari urement (mass/volume)Ordered By: Sharona Sequeira 05-18-2024 Calcium [Mass/Vol] 9.0 mg/dL 8.5-10.1 [facility] Serum or plasma creatinine m easurement (mass/volume)Ordered By: Sharona Sequeira 05-18-2024 Creatinine [Mass/Vol] 0.80 mg/dL 0.55-1.02 [facility] Comment on above: The validity of the calculated GFR & GFRAA in patients over 70 years has not been determined. Clinical correlation is essential. Serum or plasma urea nitroge n measurement (mass/volume)Ordered By: Sharona Sequeira on 05-18-2024 Urea nitrogen [Mass/Vol] 20 mg/dL High 7-18 [facility] Sodium levelOrdered By: Eryn Sequeira on 05-18-2024 Sodium [Moles/Vol] 135 mmol/L Low 136-145 [facility] Strep pneumoniae Antig(UR,CS F)on 05-18-2024 STPAG URINE, CLEAN CATCH URINE INTERPRETATION Strep pneumoniae Antig(UR,CSF) Negative Urine Presumptive negative for pneumococcal pneumonia, suggesting no current or recent pneumococcal infection. Infection due to S pneumoniae cannot be ruled out since the antigen present in the sample may be below the detection limit of the test. Strep pneumo Test Negative URINE (See interpretation below) Normal [facility] Comment on above: Performed By: #### M 300.4600, M300.4500 #### [facility] [address], [place], [id number] Streptococcus pneumoniae ant igen assayOrdered By: Sharona Sequeira on 05-18-2024 Streptococcus pneumoniae Antigen (M [facility] Total proteinOrdered By: Aut umn White on 05-18-2024 Protein [Mass/Vol] 6.5 g/dL 6.4-8.2 [facility] White blood cell (WBC) count Ordered By: Sharona Sequeira on 05-18-2024 WBC (Bld) [#/Vol] 14.3 10*3/uL High 4.4-11.0 [facility] 12 Lead EKGon 05-17-2024 12 Lead EKG [facility]ovascular Services [address] [place] [address] 12 Lead EKG 05/17/24 1727 MR#: [id number] Acct: [id number] Name: ERLINDA MONREAL Rep #: [id number] : 1950 73 From: Hari Lewis MD Attending Dr: Dr. Latih Whelan, DO Status: A DM IN Ordering [...] undetermined Abnormal ECG Confirmed by Hari Lewis ([id number]), newspaper editor managing MARIAH PINK ([id number]) on 05/18/2024 9:37:35 AM Referred By: ES/UG Confirmed By: Hari Lewis 05/18/2437 Date Hari Lewis MD CC: Dr. Laith Whelan DO; Dr. Yeison Anderson MD; No Primary Care Physician Signed Normal [facility] Arterial patency Wrist arter y --pre arterial punctureOrdered By: Yeison Anderson on 05-17-2024 Osvaldo Test Positive [facility] Base excess Calc (BldV) [Mol es/Vol]Ordered By: Yeison Anderson on 05-17-2024 Blood Gas Base Excess -1 mmol/L -2-2 [facility] Blood Gases by CPSon 025 OSVALDO TEST Positive Normal [facility] Comment on above: Performed By: #### L 9000.0800 #### [facility] [address] [place], [address] Base excess Calc (Bld) [Moles/Vol] -1 mmol/L Normal -2 to +2 [facility] Comment on above: Performed By: #### L 9000.0800 #### [facility] [address] [place], [address] Blood Gas Type ART Normal [facility] Comment on above: Performed By: #### L 9000.0800 #### [facility] [address] [place], [address] CO2 [Moles/Vol] 25 mmol/L Normal [facility] Comment on above: Performed By: #### L 9000.0800 #### [facility] [address] [place], [address] FI02 4.0 Normal [facility] Comment on above: Performed By: #### L 9000.0800 #### [facility] [address] [place], [address] HCO3 (Bld) [Moles/Vol] 23.4 mmol/L Normal 22-26 [facility] Comment on above: Performed By: #### L 9000.0800 #### [facility] [address] [place], [address] Mode Not entered Normal [facility] Comment on above: Performed By: #### L 0.0800 #### [facility] [address] [place], [address] O2 Delivery Dev Cannula Normal [facility] Comment on above: Performed By: #### L 8999.0800 #### [facility] [address] [place], [address] pCO2 34.5 mmHg Low 35-45 [facility] Comment on above: Performed By: #### L 8999.0800 #### [facility] [address] [place], [address] pH (Bld) 7.44 [pH] Normal 7.35-7.45 [facility] Comment on above: Performed By: #### L 8999.0800 #### [facility] [address] [place], [address] PO2 73 mmHG Low 75-100 [facility] Comment on above: Performed By: #### L 9000.0800 #### [facility] [address] [place], [address] SITE L Radial Normal [facility] Comment on above: Performed By: #### L 8999.0800 #### [facility] [address] [place], [address] SO2 95 Normal 95-99 [facility] Comment on above: Performed By: #### L 0.0800 #### [facility] [address] [place], [address] Blood bicarbonate measuremen tOrdered By: Yeison Anderson on 05-17-2024 Blood Gas Bicarbonate Actual 23.4 mmol/L - [facility] CBC W/Diff, Automatedon Absolute Lymph 0.59 X10 3/uL Low 0.83-4.51 [facility] Comment on above: Performed By: #### L 503.6005, L100.0100, L500.4050 #### [facility] [address] [place], [address] Absolute Neut 7.9 X10 3/uL High 2.0-7.7 [facility] Comment on above: Performed By: #### L 503.6005, L100.0100, L500.4050 #### [facility] [address] [place], [address] Basophils/100 WBC (Bld) 0.2 % Normal 0-1 [facility] Comment on above: Performed By: #### L 503.6005, L100.0100, L500.4050 #### [facility] [address] [place], [address] Eosinophils/100 WBC (Bld) 0.0 % Normal 0-5 [facility] Comment on above: Performed By: #### L 503.6005, L100.0100, L500.4050 #### [facility] [address] [place], [address] Erythrocyte distribution width (RBC) [Ratio] 13.2 % Normal 11.6-14.6 [facility] Comment on above: Performed By: #### L 503.6005, L100.0100, L500.4050 #### [facility] [address] [place], [address] Hematocrit (Bld) [Volume fraction] 45.1 % Normal 37-47 [facility] Comment on above: Performed By: #### L 503.6005, L100.0100, L500.4050 #### [facility] [address] [place], [address] Hemoglobin (Bld) [Mass/Vol] 14.7 g/dL Normal 12.0-15.0 [facility] Comment on above: Performed By: #### L 503.6005, L100.0100, L500.4050 #### [facility] [address] [place], [address] IG% 0.300 Normal 0.0-0.9 [facility] Comment on above: Result Comment: IG% - Immature Granulocytes (promyelocytes, myelocytes and metamyelocytes) > 1% indicates that a LEFT SHIFT is Present. Performed By: #### L 503.6005, L100.0100, L500.4050 #### [facility] [address] [place], [address] Lymphocytes/100 WBC (Bld) 6.5 % Low 19-41 [facility] Comment on above: Performed By: #### L 503.6005, L100.0100, L500.4050 #### [facility] [address] [place], [address] MCH (RBC) [Entitic mass] 30.2 pg Normal 27.0-32.0 [facility] Comment on above: Performed By: #### L 503.6005, L100.0100, L500.4050 #### [facility] [address] [place], [address] MCHC (RBC) [Mass/Vol] 32.6 g/dL Normal 32-36 [facility] Comment on above: Performed By: #### L 503.6005, L100.0100, L500.4050 #### [facility] [address] [place], [address] MCV (RBC) [Entitic vol] 92.6 fL Normal 81-99 [facility] [facility] Comment on above: Performed By: #### L 503.6005, L100.0100, L500.4050 #### [facility] [address] [place], [address] Monocytes/100 WBC (Bld) 6.8 % Normal 0-10 [facility] Comment on above: Performed By: #### L 503.6005, L100.0100, L500.4050 #### [facility] [address] [place], [address] Neutrophils/100 WBC (Bld) 86.2 % High 47-70 [facility] Comment on above: Performed By: #### L 503.6005, L100.0100, L500.4050 #### [facility] [address] [place], [address] Nucleated RBC (Bld) [#/Vol] 0 10*3/uL Normal 0-5 [facility] Comment on above: Performed By: #### L 503.6005, L100.0100, L500.4050 #### [facility] [address] [place], [address] Platelet mean volume (Bld) [Entitic vol] 9.8 fL Normal 6.2-12.0 [facility] Comment on above: Performed By: #### L 503.6005, L100.0100, L500.4050 #### [facility] [address] [place], [address] Platelets (Bld) [#/Vol] 234 10*3/uL Normal 150-450 [facility] Comment on above: Performed By: #### L 503.6005, L100.0100, L500.4050 #### [facility] [address] [place], [address] RBC (Bld) [#/Vol] 4.87 10*6/uL Normal 4.2-5.4 [facility] Comment on above: Performed By: #### L 503.6005, L100.0100, L500.4050 #### [facility] [address] [place], [address] RDW SD 45.5 fl High 35.1-43.9 [facility] Comment on above: Performed By: #### L 503.6005, L100.0100, L500.4050 #### [facility] [address] [place], [address] WBC (Bld) [#/Vol] 9.1 10*3/uL Normal 4.4-11.0 [facility] Comment on above: Performed By: #### L 503.6005, L100.0100, L500.4050 #### [facility] [address] [place], [address] CNOVon 05-17-2024 CNOV [facility] ---- DARRELLERLINDA HESS ([id number]) 1950 F Date Time Provider Department 05/17/24 5:15 PM DENYS CONN [facility] During your visit today, we recorded the following information about you: Temperature Pulse Respiration Blood pressure 103.3 degrees 116/minute 22/minute 159/101 Weight 53.8 kg Denys Conn APRN.BATTING MACHINE OPERATOR 05/17/2024 5:12 PM Signed Subjective HPI [...] - ICD9: 780.60, ICD10: R50.9 Denys Conn APRN.BATTING MACHINE OPERATOR Allergies As of Date: 05/17/2024 (No Known Allergies) Date Reviewed: 05/17/2024 Reviewed by: Olinda Soni MA - Fully Assessed Reason for Visit: Cough [28] Cmt: Chest congestion, SCHUMACHER, fatigue Primary Visit Diagnosis:SOB (shortness of breath) [R06.02] Other Visit Diagnoses:Acute cough [R05.1] FUO (fever of unknown origin) [R50.9] Problem List As Of Date: 05/17/2024 (None) Encounter Status:Closed by DENYS CONN on 05/17/24 Normal [facility] Chest PA and Lateralon 05-17 Chest PA and Lateral [facility] Imaging Services [address] [place], [place] [address] Chest PA and Lateral MR#: [id number] Acct: [id number] Name: ERLINDA MONREAL Rep #: [id number] : 1950 F 73 From: Clay Crawford PCP: Care Physician,No Primary Status: ADM IN Study: Chest PA and Lateral Date of Exam: 05/17/24 Exam# [id number] Ordering Dr: Yeison Anderson MD -[id number] STUDY: X-RAY CHEST REASON FOR EXAM: [...] Yeison Anderson MD; No Primary Care Physician Senior Java Software Engineer: Signed Normal [facility] Comprehensive Metabolic Prof ilon 05-17-2024 Albumin [Mass/Vol] 3.4 g/dL Normal 3.2-5.0 [facility] Comment on above: Performed By: #### L 503.6005, L100.0100, L500.4050 #### [facility] [address] [place], [address] Albumin/Globulin [Mass ratio] 0.8 {ratio} Low 0.9-2.4 [facility] Comment on above: Performed By: #### L 503.6005, L100.0100, L500.4050 #### [facility] [address] [place], [address] ALK P 103 U/L Normal 45-117 [facility] Comment on above: Performed By: #### L 503.6005, L100.0100, L500.4050 #### [facility] [address] [place], [address] ALT [Catalytic activity/Vol] 19 U/L Normal 13-56 [facility] Comment on above: Performed By: #### L 503.6005, L100.0100, L500.4050 #### [facility] [address] [place], [address] AST [Catalytic activity/Vol] 31 U/L Normal 15-37 [facility] Comment on above: Performed By: #### L 503.6005, L100.0100, L500.4050 #### [facility] [address] [place], [address] Bilirubin [Mass/Vol] 0.90 mg/dL Normal 0.20-1.00 [facility] Comment on above: Result Comment: For patients on eltrombopag therapy, use of Dimension [place] TBIL is not recommended. Performed By: #### L 503.6005, L100.0100, L500.4050 #### [facility] [address] [place], [address] BUN/CRE 17.1 RATIO Normal 10-20 [facility] Comment on above: Performed By: #### L 503.6005, L100.0100, L500.4050 #### [facility] [address] [place], [address] CA,Total 9.2 mg/dL Normal 8.5-10.1 [facility] Comment on above: Performed By: #### L 503.6005, L100.0100, L500.4050 #### [facility] [address] [place], [address] Chloride [Moles/Vol] 100 mmol/L Normal 98-107 [facility] Comment on above: Performed By: #### L 503.6005, L100.0100, L500.4050 #### [facility] [address] [place], [address] CO2 [Moles/Vol] 27.0 mmol/L Normal 21.0-32.0 [facility] Comment on above: Performed By: #### L 503.6005, L100.0100, L500.4050 #### [facility] [address] [place], [address] Creatinine [Mass/Vol] 1.05 mg/dL High 0.55-1.02 [facility] Comment on above: Result Comment: The validity of the calculated GFR GFRAA in patients over 70 years has not been determined. Clinical correlation is essential. Performed By: #### L 503.6005, L100.0100, L500.4050 #### [facility] [address] [place], [address] ECRCL 38.61 ml/min Normal [facility] Comment on above: Performed By: #### L 503.6005, L100.0100, L500.4050 #### [facility] [address] [place], [address] EST GFR - AA 66 mL/min Normal >60 [facility] Comment on above: Result Comment: Afri can Niuean GFR Calc Performed By: #### L 503.6005, L100.0100, L500.4050 #### [facility] [address] [place], [address] GAP 9 Normal 5-15 [facility] Comment on above: Performed By: #### L 503.6005, L100.0100, L500.4050 #### [facility] [address] [place], [address] GFR/1.73 sq M.predicted among non-blacks MDRD (S/P/Bld) [Vol rate/Area] 54 mL/min/{1.73_m2} Low >60 [facility] Comment on above: Result Comment: Non- GFR Calc Performed By: #### L 503.6005, L100.0100, L500.4050 #### [facility] [address] [place], [address] Globulin (S) [Mass/Vol] 4.0 g/dL Normal 2.2-4.2 [facility] Comment on above: Performed By: #### L 503.6005, L100.0100, L500.4050 #### [facility] [address] [place], [address] Glucose [Mass/Vol] 155 mg/dL High 74-106 [facility] Comment on above: Result Comment: Fast ing Glucose result greater than or equal to 126 mg/dL suggests DIABETES MELLITUS per A.D.A. criteria. Performed By: #### L 503.6005, L100.0100, L500.4050 #### [facility] [address] [place], [address] Potassium [Moles/Vol] 3.3 mmol/L Low 3.5-5.1 [facility] Comment on above: Performed By: #### L 503.6005, L100.0100, L500.4050 #### [facility] [address] [place], [address] Sodium [Moles/Vol] 136 mmol/L Normal 136-145 [facility] Comment on above: Performed By: #### L 503.6005, L100.0100, L500.4050 #### [facility] [address] [place], [address] T PROT 7.4 g/dL Normal 6.4-8.2 [facility] Comment on above: Performed By: #### L 503.6005, L100.0100, L500.4050 #### [facility] [address] [place], [address] Urea nitrogen [Mass/Vol] 18 mg/dL Normal 7-18 [facility] Comment on above: Performed By: #### L 503.6005, L100.0100, L500.4050 #### [facility] [address] [place], [address] Determination of fraction of inspired oxygenOrdered By: Yeison Anderson on 05-17-2024 Blood Gas Oxygen Percent 4.0 [facility] Emergency Department Summary on 05-17-[address] [facility] Medical Records Department [address] [place] [address] Emergency Department Summary 05/17/24 MR#: [id number] Acct: [id number] Name: ERLINDA MONREAL Rep #: [id number] : 1950 73 From: Yeison Anderson MD [...] Posterior ph (more content not included)... Normal [facility] H&P Exam - Hospitalist [facility] Medical Records Department [address] [place] [address] H P Exam - Hospitalist 05/17/241910 MR#: [id number] Acct: [id number] Name: ERLINDA MONREAL Rep #: [id number] : 1950 73 From: Sharona Sequeira MD [...] has been undiagnosed who presents to the [facility] ED on 05/17/24 with history of [...] x 1 as well as IV fluids. [facility] Medical History Smoker Tobacco use Hx of [...] Oxygen Deliv (more content not included)... Normal [facility] Influenza virus A and B and SARS-CoV-2 (COVID-19) and Respiratory syncytial virus RNAOrdered By: Yeison Anderson on 05-17-2024 SARS-CoV-2 (COVID-19) RNA ANNIKA+probe Ql (Unsp spec) RSV Abnormal [facility] Lactic Acidon 05-17-2024 Lactate [Moles/Vol] 1.8 mmol/L Normal 0.4-1.9 [facility] Comment on above: Order Comment: Y Performed By: #### L 503.6005, L100.0100, L500.4050 #### [facility] [address] [place], [address] Lactic acid measurementOrder ed By: Yeison Anderson on 05-17-2024 Lactate [Moles/Vol] 1.8 mmol/L 0.4-2.0 [facility] M100.678on 05-17-2024 SARS-CoV-2 (COVID-19) Ab IA Ql FLUABV+SARS-CoV-2+R SV Pnl Resp ANNIKA+probe Copy of report sent to Infection Control Printer [id number] 05/17/24 1851 MLOLLO. SARS-CoV-2 (COVID 19) Negative INFLUENZA A Negative INFLUENZA B Negative RSV PCR A Positive A RSV Normal [facility] Comment on above: Performed By: #### M 300.3920, M300.4712 #### [facility] [address] [place], [address] Magnesiumon 05-17-2024 Magnesium [Mass/Vol] 2.0 mg/dL Normal 1.6-2.6 [facility] Comment on above: Order Comment: Comme nts: may add to ED labs Performed By: #### L 509.7000, L501.5200 #### [facility] [address] [place], [address] Magnesium measurementOrdered By: Sharona Sequeira on 05-17-2024 Magnesium [Mass/Vol] 2.0 mg/dL 1.6-2.6 [facility] No Panel InformationOrdered By: Yeison Anderson on 05-17-2024 Blood Gas Sample Site L Radial [facility] Blood Gas Specimen Type ART W [facility] Blood Gas Vent Mode Not entered [facility] Oxygen Delivery Device Cannula [facility] Oxygen saturation measuremen tOrdered By: Yeison Anderson on 05-17-2024 Blood Gas Oxygen Saturation 95 % 95-99 [facility] Partial pressure of carbon d ioxide measurementOrdered By: Yeison Anderson on 05-17-2024 Arterial Blood Partial Pressure CO2 34.5 mmHg Low 35-45 [facility] Partial pressure of oxygen m easurementOrdered By: Yeisonisabel Anderson on 05-17-2024 Arterial Blood Partial Pressure O2 73 mmHG Low 75-100 [facility] Procalcitoninon 05-17-2024 Procalcitonin 0.27 ng/mL High 0.00-0.09 [facility] Comment on above: Result Comment: A [...] Performed By: #### M 300.4600, M300.4500 #### [facility] [place], [address] Procalcitonin [Mass/Vol]Orde red By: Sharona Sequeira on 05-17-2024 Procalcitonin 0.27 ng/mL High 0.00-0.09 [facility] Comment on above: A procalcitonin (PCT [...] Respiratory Panel (PCR) RSV A Abnormal W [facility] Total carbon dioxide measure mentOrdered By: Yeison Anderson on 05-17-2024 Blood Gas Total CO2 25 mmol/L [facility] pH (Unsp spec)Ordered By: Naseem Anderson on 05-17-2024 Blood Gas pH 7.44 7.35-7.45 [facility] CNPNon 11-23-2023 SHAUN Telephone ([facility] RecordsWS) ---- ERLINDA MONREAL ([id number]) 1950 F Date Time Provider Department 11/23/23 MIKE GAGE During your visit today, we recorded the following information about you: Marily Kuhn MA 11/23/2023 10:34 AM Signed Patient called and wants to cancel her surgery scheduled on 12/02/23. She did not want to reschedule at this time. Case message sent to [place] surgery scheduling. Mary Evans MA 11/23/2023 2:28 PM Signed Surgery has been cancelled. Allergies As of Date: 11/23/2023 (No Known Allergies) Date Reviewed: 11/14/2023 Reviewed by: Mary Evans MA - Fully Assessed Reason for Visit: Surgery Cancelled [4163] Problem List As Of Date: 11/23/2023 (None) Encounter Status:Closed by MARY EVANS on 11/23/23 [facility] 11-21-2023 [facility] Telephone (ORTHWS) ---- DARRELLERLINDA Pedroza ([id number]) 1950 F Date Time Provider Department 11/21/23 [...] Status:Closed by TRACI CA on 11/21/23 Normal [facility] CNPNon 11-16-2023 CNPN Telephone (PANEWO) ---- ERLINDA MONREAL ([id number]) 1950 F Date Time Provider Department 11/16/23 [...] Status:Closed by ERLINDA CAMPA on 11/21/23 Normal [facility] XR Wrist - bilateral PA and Lateral and Obliqueon 11-16-2023 IMPRESSION: Degenerative changes as described. Senior Java Software Engineer: PSCB Transcribe Date/Time: Nov 16 2023 9:39P Dictated by : DENYS RODGERS MD This examination was interpreted and the report reviewed and electronically signed by: DENYS RODGERS MD on Nov 16 2023 9:39PM [facility] DIVISION OF RADIOLOGY * * *Final Report* [...] on the left. DIVISION OF RADIOLOGY Provider, [facility] [place] - 11/16/2023 * * *Final Report* * [...] left. IMPRESSION IMPRESSION: Degenerative changes as described. Senior Java Software Engineer: PSCB Transcribe Date/Time: Nov 16 2023 9:39P Dictated by : DENYS RODGERS MD This examination was interpreted and the report reviewed and electronically signed by: DENYS RODGERS MD on Nov 16 2023 9:39PM EST [facility] XR Wrist - bilateral PA and Lateral and ObliqueOrdered By: [facility] Provider on 11-16-2023 [facility] CNCOon 11-15-2023 CNCO Letter Text Normal [facility] CNPNon 11-15-2023 CNPN Telephone (FARHANAWS) ---- ERLINDA MONREAL ([id number]) 1950 F Date Time Provider Department 11/15/23 MIKE GAGE During your visit today, we recorded the following information about you: Mary Evans MA 11/15/2023 9:05 AM Signed Surgical request completed for right thumb CMC arthroplasty with tendon transfer and suspension at [facility] on 12/02/2023. Post op appointments have been [...] joints [M18.0] Order(s):SURGICAL REQUEST - ELECTIVE (12/2019) [[id number]] Order #: [id number]: 1 CONSULT TO PELLET MACHINE OPERATOR [[id number]] Order #: [id number]: 1 FUTURE Problem List As Of Date: 11/15/2023 (None) Encounter Status:Closed by LORENA AGUILAR on 11/18/23 [facility] CNVashti 11-14-2023 CNOV Office Visit (FARHANAWS) ---- ERLINDA MONREAL ([id number]) 1950 F Date Time Provider Department 11/14/23 9:15 AM MIKE GAGE During your visit today, we recorded the following information about you: Mike Gage MD 11/21/2023 2:20 PM Signed Mike Gage MD Department of Orthopaedics Orthopaedics [address] [place] [address] Dept: [phone] Dept November 14, 2023 CHIEF COMPLAINT: New [...] IMAGING: Impression IMPRESSION: Degenerative changes as described. Senior Java Software Engineer: CORNELIO Transcribe Date/Time: Nov 16 2023 9:39P [...] Mary Evans MA Referring Provider: MIKE GAGE [[id number]] Allergies As of Date: 11/14/2023 (No Known Allergies) Date Reviewed: 11/14/2023 Reviewed by: Mary Evans MA - Fully Assessed Reason for Visit: New [214985] Pain [78] Primary Visit Diagnosis:Pain in both wrists [M25.531, M25.532] Other Visit Diagnoses:Primary osteoarthritis of both first carpometacarpal joints [M18.0] Right wrist pain [M25.531] Order(s):XR WRIST GENERAL 3V PA/LAT/OBL BILATERAL [[id number]] Order #: [id number] FUTURE Problem List As Of Date: 11/14/2023 (None) (more content not included)... Normal [facility] XR WRIST 3V PA/LAT/OBL BILon [...] the left. IMPRESSION: Degenerative changes as described. Senior Java Software Engineer: CORNELIO Transcribe Date/Time: Nov 16 2023 9:39P Dictated by : DENYS RODGERS MD This examination was interpreted and the report reviewed and electronically signed by: DENYS RODGERS MD on Nov 16 2023 9:39PM EST [id number] Normal [facility] XR Wrist - bilateral PA and Lateral and Obliqueon 11-14-2023 Radiology Study observation (narrative) [facility] Saleem 11-09-2023 HIRAMN Telephone (ORTHWS) ---- ERLINDA MONREAL ([id number]) 1950 F Date Time Provider Department 11/09/23 [...] Status:Closed by MARY EVANS on 11/14/23 Normal [facility] Vital Signs Date Time Vital Sign Value Performing Clinician Facility 05-19-2024 14:12-0500 Diastolic blood pressure 92 mm[Hg] No Primary Care Physician [facility] 05-19-2024 14:12-0500 Heart rate 78 /min No Primary Care Physician [facility] 05-19-2024 14:12-0500 Inhaled oxygen flow rate 2 L/min No Primary Care Physician [facility] 05-19-2024 14:12-0500 Respiratory rate 16 /min No Primary Care Physician [facility] 05-19-2024 14:12-0500 SaO2% (BldA) [Mass fraction] 95 % No Primary Care Physician [facility] 05-19-2024 14:12-0500 Systolic blood pressure 145 mm[Hg] No Primary Care Physician [facility] 05-19-2024 08:03-0500 Body temperature 97.5 [degF] No Primary Care Physician [facility] 05-19-2024 06:00-0500 Body mass index (BMI) [Ratio] 21 kg/m2 No Primary Care Physician [facility] 05-19-2024 06:00-0500 Body weight 52.2 kg No Primary Care Physician [facility] 05-18-2024 10:53-0500 Body height 157.48 cm No Primary Care Physician [facility] 05-17-2024 16:53-0500 Body temperature 103.3 [degF] Denys Conn DRIER UNLOADER.BATTING MACHINE OPERATOR Work Phone: [facility] 05-17-2024 16:53-0500 Body weight 53.8 kg Denys Conn DRIER UNLOADER.BATTING MACHINE OPERATOR Work Phone: [facility] 05-17-2024 16:53-0500 Diastolic blood pressure 101 mm[Hg] Denys Conn DRIER UNLOADER.BATTING MACHINE OPERATOR Work Phone: [facility] 05-17-2024 16:53-0500 Heart rate 116 /min Denys Conn DRIER UNLOADER.BATTING MACHINE OPERATOR Work Phone: [facility] 05-17-2024 16:53-0500 Respiratory rate 22 /min Denys Conn DRIER UNLOADER.BATTING MACHINE OPERATOR Work Phone: [facility] 05-17-2024 16:53-0500 SaO2% (BldA) [Mass fraction] 91 % Denys Conn DRIER UNLOADER.BATTING MACHINE OPERATOR Work Phone: [facility] 05-17-2024 16:53-0500 Systolic blood pressure 159 mm[Hg] Denys Conn DRIER UNLOADER.BATTING MACHINE OPERATOR Work Phone: [facility] Encounters Encounter Date Encounter Type Care Provider Facility Start: 07-19-2024 End: 07-19-2024 ambulatory No Primary Care Physician [facility] Work Phone: Start: 07-19-2024 End: 07-19-[address] Juan David Ingram MD -[facility], [facility] Work Phone: Start: 07-19-2024 End: 07-19-2024 ambulatory Juan David Chi Juan Jose Facility:[facility] Start: 07-03-2024 End: 07-03-[address] Juan David Ingram MD -Pulmonary Services/Neurology Work Phone: Start: 07-03-2024 End: 07-03-2024 ambulatory Juan David Chi Juan Jose [place] Start: 07-03-2024 End: 07-03-2024 ambulatory Juan David Chi Juan Jose Facility:[facility] Start: 06-12-2024 End: 06-12-[address] Juan David Ingram MD -Laboratory Work Phone: Start: 06-12-2024 End: 06-12-2024 ambulatory No Primary Care Physician Facility:[facility] Start: 05-19-2024 Non-patient / Non-visit Dr. Sepideh Whelan [facility] Work Phone: Start: 05-18-2024 Non-patient / Non-visit Dr. Sepideh Whelan [facility] Work Phone: Start: 05-17-2024 End: 05-19-2024 Evaluation and management of inpatient Sharona Sequeira Facility:[facility] Start: 05-17-2024 ambulatory Laith Whelan Facilit y:[facility] Start: 05-17-2024 Non-patient / Non-visit Dr. Lesli Sequeira MD -[facility] Work Phone: Start: 05-17-2024 End: 05-17-2024 Patient encounter procedure Denys Conn APRN.BATTING MACHINE OPERATOR Work Phone: [facility] Comment on above: SOB (shortness of br eath) (Primary Dx); Acute cough; FUO (fever of unknown origin) Start: 05-17-2024 End: 05-17-2024 ambulatory MIKE GAGE Facility:[facility] Start: 11-23-2023 Telephone encounter Mike morton MD Work Phone: Orthopaedics Comment on above: Surgery Cancelled Start: 11-21-2023 Telephone encounter Mike morton MD Work Phone: Orthopaedics Start: 11-15-2023 Telephone encounter Mike morton MD Work Phone: Orthopaedics Comment on above: Schedule Surgery Start: 11-14-2023 End: 11-14-2023 Subsequent hospital visit by physician Brendon [facility] Work Phone: Radiology Comment on above: Pain in both wrists [M25.531, M25.532] Start: 11-14-2023 End: 11-14-2023 ambulatory MIKE GAGE Facility:[facility] Start: 11-14-2023 End: 11-14-2023 Patient encounter procedure [...] Start: 05-17-2024 Nucleic acid assay No P [facility] Care Physician Start: 05-17-2024 SARS-CoV-2, Influenz a & RSV (PCR) No Primary Care Physician Plan of Treatment Date Care Activity Detail Author Start: 2024 RSV Vaccine (1 - 1-dose 75+ series) RSV Vaccine (1 - 1-dose 75+ series) [facility] Start: 05-19-2024 Patient discharge [facility] Start: 05-18-2024 Contact precautions [facility] Start: 05-18-2024 Respiratory secretion precautions [facility] Start: 05-17-2024 Following clinical pathway protocol [facility] Start: 05-17-2024 Assessment of risk of venous thromboembolism [facility] Start: 05-17-2024 Inhalation therapy procedure [facility] Start: 05-17-2024 Insertion of catheter into peripheral vein [facility] Start: 05-17-2024 Introduction of urinary catheter [facility] Start: 05-17-2024 Measuring intake and output [facility] Start: 05-17-2024 Oxygen therapy [facility] Start: 05-17-2024 Providing care according to standard [facility] Start: 05-17-2024 Provision of activity privileges [facility] Start: 05-17-2024 Referral to occupational therapist [facility] Start: 05-17-2024 Referral to service [facility] Start: 05-17-2024 Tobacco use cessation education [facility] Start: 05-17-2024 [facility] Start: 05-17-2024 Admission procedure [facility] Start: 05-17-2024 Patient referral to dietitian [facility] Start: 05-09-2024 Advance Directive Discussion Advance Directive Discussion [facility] Start: 01-26-2024 End: 01-26-2024 Patient encounter procedure 01/26/2024 11:20 AM EDT Office Visit Orthopaedics [address] [place] [address] Miek Gage MD [address] [place] [address] Post op right thumb CMC arthroplasty with tendon transfer and suspension Orthopaedics Comment on above: Post op right thumb CMC arthroplasty wit h tendon transfer and suspension Start: 01-08-2024 Covid-19 Vaccine ( season) Covid-19 Vaccine () [facility] Start: 01-08-2024 Influenza vaccination Influenza Vaccine (#1) [facility] Start: 12-27-2023 End: 12-27-2023 Patient encounter procedure 12/27/2023 3:15 PM EDT Office Visit Orthopaedics [address] [address] Mike Gage MD [address] [place] [address] Post op right thumb CMC arthroplasty with [...] EDT - 12/02/2023 1:46 PM EDT Surgery [facility] Surgery [address] [place] [address] Mike Gage MD [address] [place] [address] ARTHROPLASTY CARPOMETACARPAL JOINTS [facility] Surgery Comment on above: ARTHROPLASTY CARPOMETACARPAL JOINTS Start: 12-02-2023 End: 12-02-2023 Arthrp interpos intercarpal/metacarpal joints ARTHROPLASTY CARPOMETACARPAL JOINTS Primary osteoarthritis of both first carpometacarpal joints 12/02/2023 11:56 AM EDT ME OR Start: 12-02-2023 Subsequent hospital visit by physician 12/02/2023 11:56 AM EDT Hospital Encounter [facility] Surgery [address] [place] [address] Mike Gage MD [address] [facility] [place] [address] Primary osteoarthritis of both first carpometacarpal joints [M18.0] [facility] Surgery Comment on above: Primary osteoarthritis of both first car pometacarpal joints [M18.0] Start: 11-28-2023 End: 11-28-2023 Anesthesia consultation 11/28/2023 9:20 AM EDT PAT Pre Anesthesia [address] [place] [address] 1, [facility] [place] [address] [place] [address] ARTHROPLASTY CARPOMETACARPAL JOINTS [99294] - Hand - Right Pre Anesthesia Comment on above: ARTHROPLASTY CARPOMETACARPAL JOINTS [220 90] - Hand - Right Start: 05-09-2023 Advance Directive Discussion Advance Directive Discussion [facility] Start: 05-09-2023 Behavioral Health Screening Behavioral Health Screening [facility] Start: 01-07-2023 Covid-19 Vaccine ( season) Covid-19 Vaccine ( season) [facility] Start: 2014 Pneumococcal Vaccine: 65+ (1 of 1 - PCV) Pneumococcal Vaccine: 65+ (1 of 1 - PCV) [facility] Start: 2014 Screening for osteoporosis Bone Density Screening [facility] Start: 2009 RSV Vaccine (1 - 1-dose 60+ series) RSV Vaccine (1 - 1-dose 60+ series) [facility] Start: 08-03-1999 Pneumococcal Vaccine: 50+ (1 of 1 - PCV) Pneumococcal Vaccine: 50+ (1 of 1 - PCV) [facility] Start: 08-03-1999 Shingrix Vaccine (1 of 2) Shingrix Vaccine (1 of 2) [facility] Start: 1994 Diabetes Screening Diabetes Screening [facility] Start: 1994 Lipid panel Lipid Screening [facility] Start: 1994 Screening for malignant neoplasm of colon [facility] Start: 1989 Screening for malignant neoplasm of breast Mammogram Screening [facility] Start: 1968 Urine microalbumin profile DTaP,Tdap,Td Vaccine (1 - Tdap) [facility] Start: 08-03-1967 Anxiety Screening Anxiety Screening [facility] Start: 08-03-1967 Depression Screening Depression Screening [facility] Start: 08-03-1967 Hepatitis C screening Hepatitis C Screening [facility] Patient referral [facility] Work Phone: XR Wrist - bilateral PA and Lateral and Oblique XR WRIST GENERAL 3V PA/LAT/OBL BILATERAL Radiology Routine Pain in both wrists 11/14/2023 10:15 AM EDT [facility] Work Phone: Payers Date Payer Category Payer Self-pay 2023 Medicare [id number] 2014 Medicare [id number] Medicare [employer] MEDICARE PPO [id number] Self-pay SELF PAY INSURANCE [id number] Unknown [id number] 2.16.8 [id number] Unknown [id number] 2.16.8 [id number] Unknown [id number] 2.16.8 [id number] Unknown [id number] 2.16.8 [id number] Unknown [id number] 2.16.8 [id number] Unknown [id number] 2.16.8 [id number] Unknown [id number] 2.16.8 [id number] Unknown [id number] 2.16.8 [id number] Social History Date Type Detail Facility Tobacco smoking stat [facility] Tobacco smoking consumption unknown [facility] Start: 11-14-2023 End: 05-17-2024 History of Social function [facility] Start: 11-14-2023 End: 05-17-2024 Tobacco use panel [facility] National Score (1-10 0), lower number is lower risk 72 [facility] Start: 1950 Sex Assigned At Not on file [facility] Start: 11-14-2023 Tobacco smoking stat [facility] Ex-smoker [facility] History of tobacco use Current smoker [facility] History of tobacco use Cigarette Smoker C [facility] Start: 11-14-2023 Tobacco use and exposure Smokeless tobacco non-user [facility] Start: 11-14-2023 End: 05-17-2024 Alcohol intake Lifetime non-drinker (finding) [facility] Start: 05-17-2024 Tobacco smoking stat [facility] Current some day smoker [facility] Start: 10-09-2020 Occasional Occasional [facility] Start: 10-09-2020 None None [facility] Start: 10-09-2020 Cigarettes Cigarettes [facility] Start: 07-18-2024 End: 07-31-2024 Sex Female (finding) [facility] Start: 1950 Sex Assigned At Female W [facility] Goals Date Patient Goal Desired Activity /State Functional Status Date Assessment Result Facility 05-19-2024 Functional status Ambulates [facility] Work Phone: 05-18-2024 Functional status Assistive Devices None [facility] Work Phone: Mental Status Date Assessment Result Facility 05-18-2024 Cognitive function Voice/Name [facility] Work Phone: Clinical Notes 11-09-2023 to 07-19-2024 Note Date & Type Note Facility 07-19-2024 Radiology Diagnostic study note [facility] Imaging Services [address] [place] [address] Lung Screening MR#: [id number] Acct: [id number] Name: ERLINDA MONREAL Rep #: [id number] : 1950 F 73 From: Eyad Whatley MD PCP: Dr. Juan David Ingram MD Status: MADELIN ELMORE Study:Low Dose CT Lung Screening Date of Exam : 07/19/24 Exam# [id number] Ordering Dr: Juan David Ingram MD PROCEDURE: [...] potentially significant findings (non-lung cancer) Reading Location: [id number] CC: Dr. Juan David Ingram MD ~ Senior Java Software Engineer: Signed [facility] 05-19-2024 Note [facility] Medical Records Department [address] [place] [address] Discharge Summary 05/19/24 1318 MR#: [id number] Acct: [id number] Name: ERLINDA MONREAL Rep #: [id number] : 1950 73 From: Laith Whelan DO PCP: Care Physician,No Primary Status:DIS IN [id number] Providers Date of Admission: 05/17/24 Date of [...] was seen in the emergency room at [facility] with complaints of cough, wheezing, and [...] Home O2 Dis (more content not included)... [facility] 05-17-2024 Evaluation note Diagnosis Onset Date Resolution RSV (respiratory syncytial virus infection) inactive May 17 7:12pm [facility] Work Phone: 1(179) 286-382501-09-2025 NoteHNO ID: [id number] Author: DENYS CONN APRN.BATTING MACHINE OPERATOR Service: ? Author Type: Nurse Practitioner [...] - ICD9: 780.60, ICD10: R50.9 [facility] Conn [facility] History of Present illness Narrative* [...] - ICD9: 780.60, ICD10: R50.9 Denys Conn APRN.BATTING MACHINE OPERATOR documented in this encounterGrand [facility] Telephone encounter Note * Telephone Encounter - aMry Evans MA - 11/23/2023 2:28 PM EDT Surgery has been cancelled. [facility]07-17-2024 Miscellaneous Notes* Telephone Encounter - Mary Evans MA - 11/23/2023 2:28 PM EDT Surgery has been cancelled. * Telephone Encounter - Marily Kuhn MA - 11/23/2023 10:11 AM EDT Patient called and wants to cancel her surgery scheduled on 12/02/23. She did not want to rescheduleat this time. Case message sent to [facility] surgery scheduling. documented in this encounterGrand [facility] Telephone encounter Note * Telephone Encounter - Marily Kuhn MA - 11/23/2023 10:11 AM EDT Patient called and wants to cancel her surgery scheduled on 12/02/23. She did not want to rescheduleat this time. Case message sent to [facility] surgery scheduling. [facility]07-15-2024 Telephone encounter Note* Telephone Encounter - Traci Ca PA-C - 11/21/2023 2:27 PM EDT Note is completed. [facility] Work Phone: [phone]) 782-734807-15-2024 Miscellaneous Notes* Telephone Encounter - Traci Ca PA-C - 11/21/2023 2:27 PM EDT Note is completed. * Telephone Encounter - Adeline Summers LPN - 11/21/2023 2:09 PM EDT Pre auth team call stating that note needs completed before they can submit surgery to insurance. Please complete. Adeline Summers LPN documented in this encounterGrand [facility] Telephone encounter Note * Telephone Encounter - Adeline Summers LPN - 11/21/2023 2:09 PM EDT Pre auth team call stating that note needs completed before they can submit surgery to insurance. Please complete. Adeline Summers LPN [facility] Work Phone: [phone] 483-781707-12-2024 Telephone encounter Note* Telephone Encounter - Mary Evans MA - 11/18/2023 8:55 AM EDT Surgery has been scheduled as requested. [facility]07-12-2024 Miscellaneous Notes* Telephone Encounter - Mary Evans [...] arthroplasty with tendon transfer and suspension at [facility] on 12/02/2023. Post op appointments have been scheduled. Please sign order for OT. documented in this encounterGrand [facility]07-12-2024 Telephone encounter Note * Telephone Encounter - Lorena Aguilar - 11/18/2023 8:50 AM EDT Patient scheduled 12/13/23 at 3:45 [facility]07-09-2024 Telephone encounter Note* Telephone Encounter - Mary Evans MA - 11/15/2023 9:52 AM EDT Please schedule patient to have OT to follow 1st post op on 12/13/2023 with Traci Ca PA-C. I will mail out with post op appointments. Thank you. [facility]07-09-2024 Telephone encounter Note* Telephone Encounter - Traci Ca PA-C - 11/15/2023 9:12 AM EDT OT order signed. [facility] Work Phone: 1(171) 244-998007-09-2024 Telephone encounter Note* Telephone Encounter - Mary Evans MA - 11/15/2023 8:51 AM EDT Surgical request completed for right thumb CMC arthroplasty with tendon transfer and suspension at [facility] on 12/02/2023. Post op appointments have been scheduled. Please sign order for OT. [facility]07-08-2024 Telephone encounter Note* Telephone Encounter - Mary Evans MA - 11/14/2023 1:36 PM EDT Patient seen in office today. [facility]07-08-2024 Miscellaneous Notes* Telephone Encounter - Mary Evans MA - 11/14/2023 1:36 PM EDT Patient seen in office today. * Telephone Encounter - Marily Kuhn MA - 11/09/2023 10:51 AM EDT Patient has an appointment with Dr. Gage on Monday 11/13 for wrist pain. Need to know laterality for x-ray order. Left message for patient to call office. documented in this encounterGrand [facility]07-08-2024 NoteHNO ID: [id number] Author: MARY EVANS MA Service: ? Author Type: Tape Recording Machine Operator Type: Progress Notes Filed: 11/21/2023 14:20 Note Text: PT ASSESSMENT - CASTING ROOM Erlinda presents for Application of brace. Applied small Actimove Rhizo Forte brace to Right hand. Patient has been instructed in Care and proper application of brace. Mary Evans [facility]07-08-2024 History of Present illness Narrative* Mary Evans MA - 11/14/2023 11:06 AM EDT PT ASSESSMENT - CASTING ROOM Erlinda presents for Application of brace. Applied small Actimove Rhizo Forte brace to Right hand. Patient has been instructed in Care and proper application of brace. Mary Evans MA * Mike Gage MD - 11/14/2023 9:08 AM EDT Mike Gage MD Department of Orthopaedics Orthopaedics [address] [place] [address] Dept: [phone] Dept November 14, 2023 CHIEF COMPLAINT: New [...] IMAGING: Impression IMPRESSION: Degenerative changes as described. Senior Java Software Engineer: PSCB Transcribe Date/Time: Nov 16 2023 9:39P [...] anxiety) Mike Gage MD documented in this encounterGrand Lake [facility]07-08-2024 History of Present illness Narrative* Marianna Mosher [...] PATIENT PRESENTS WITH AN IMPLANTABLE OR ATTACHED GEOLOGY INSTRUCTOR: No RADIOLOGY DEPARTMENT: General X-ray: Exam(s) Completed: Upper Extremity X- Ray(s): Wrist, bilateral PERIPHERAL IV DATA: Not applicable SIGNED BY: RT Esperanza(Crissy) November 14, 2023 11:47 AM documented in this encounterGrand Lake [facility]07-08-2024 NoteHNO ID: [id number] Author: MARIANNA MOSHER RT(Crissy) Service: ? Author [...] PATIENT PRESENTS WITH AN IMPLANTABLE OR ATTACHED GEOLOGY INSTRUCTOR: No RADIOLOGY DEPARTMENT: General X-ray: Exam(s) Completed: Upper Extremity X-Ray(s): Wrist, bilateral PERIPHERAL IV DATA: Not applicable SIGNED BY: Marianna Mosher RT(R) November 14, 2023 11:47 [facility]07-08-2024 NoteHNO ID: [id number] Author: MIKE GAGE MD Service: ? Author Type: Physician Type: Progress Notes Filed: 11/21/2023 14:20 Note Text: Mike Gage MD Department of Orthopaedics Orthopaedics [address] [facility] [address] Dept: [phone] Dept November 14, 2023 CHIEF COMPLAINT: New [...] IMAGING: Impression IMPRESSION: Degenerative changes as described. Senior Java Software Engineer: CORNELIO Transcribe Date/Time: Nov 16 2023 9:39P [...] HPI) Psych (no depression, anxiety) Mike Gage [place] [address]-03-2024 Telephone encounter Note * Telephone Encounter - Marily Kuhn MA - 11/09/2023 10:51 AM EDT Patient has an appointment with Dr. Gage on Monday 11/13 for wrist pain. Need to know laterality for x-ray order. Left message for patient to call office. [facility] note* Diagnosis Pain in both wrists Pain in joint, forearm documented in this encounter [facility]* Diagnosis Primary osteoarthritis of both first carpometacarpal joints- Primary Primary localized osteoarthrosis, hand Primary osteoarthritis of both first carpometacarpal joints Primary localized osteoarthrosis, hand documented in this encounter [facility] note* Diagnosis Pain in both wrists- Primary Pain in joint, forearm Primary osteoarthritis of both first carpometacarpal joints Primary localized osteoarthrosis, hand Right wrist pain Pain in joint, forearm Pain in both wrists Pain in joint, forearm Primary osteoarthritis of both first carpometacarpal joints Primary localized osteoarthrosis, hand documented in this encounter [facility] note* Diagnosis SOB (shortness of breath)- Primary Shortness of breath Acute cough FUO (fever of unknown origin) Fever, unspecified documented in this encounter [facility] for referral (narrative)* Diagnostic Procedure Only (Routine) - Closed Specialty Diagnoses / Procedures Referred By Abdiel tello Referred To Contact XR IMAGING Diagnoses Pain in both wrists Procedures XR WRIST GENERAL 3V PA/LAT/OBL BILATERAL RADEX WRIST COMPLETE MINIMUM 3 VIEWS Mike Gage MD [address] [facility] [place] [address] [place] [address] Referral ID Status Reason Start Date Expiration Date V isits Requested Visits Authorized [id number] Closed Auto-Generate d Referral 11/14/2023 12/13/2024 1 1 [facility] for referral (narrative)No reason for referral information availableWMercy [facility] Work Phone: Reason for visit Narrative* Diagnostic Procedure Only (Routine) - Closed Specialty Diagnoses / Procedures Referred By Abdiel tello Referred To Contact XR IMAGING Diagnoses Pain in both wrists Procedures XR WRIST GENERAL 3V PA/LAT/OBL BILATERAL RADEX WRIST COMPLETE MINIMUM 3 VIEWS Mike Gage MD [address] [place] [address] [place] [address] Referral ID Status Reason Start Date Expiration Date V isits Requested Visits Authorized [id number] Closed Auto-Generate d Referral 11/14/2023 12/13/2024 1 1 [facility] Reason for Referral Specialty Diagnoses / Procedures Referred By Contac t Referred To Contact [facility] Diagnoses Primary osteoarthritis of both first carpometacarpal joints Procedures 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 THERAPY EVAL HIGH COMPLEX 60 MINS Traci Ca PA-C [address] [place] [address] [facility] [place] [address] [place] [address] Referral ID Status Reason Start Date Expiration Date Visits Requested Visits Authorized [id number] Authorized Auto-Generat ed Referral 11/15/2023 11/14/2024 1 1 Summary Purpose Family History Relationship Condition Age at Onset Recorded Date/T hyacinth mother Hypertension Unknown father Cerebrovascular accident (CVA) Unknown Advance Directives Advance Directive Response Recorded Date/ Time Living Will No May 17 9:51pm Power of Fast Food Services Manager No May 17 9:51pm Advance Directive Response Recorded Date/ Time Living Will No May 17 9:51pm Do you have a Healthcare Power of Fast Food Services Manager? No May 17, 2024 9:51pm Chief Complaint [...] or prosecute any alcohol or drug abuse patient.[facility] HospitalIn the event this information is protected by the Federal Confidentiality of Alcohol and Drug Abuse Patient Records regulations: The Federal rules restrict any use of the information to criminally investigate or prosecute any alcohol or drug abuse patient.[facility] HospitalIn the event this information is protected by the Federal Confidentiality of Alcohol and Drug Abuse Patient Records regulations: The Federal rules restrict any use of the information to criminally investigate or prosecute any alcohol or drug abuse patient.[facility] HospitalIn the event this information is protected by the Federal Confidentiality of Alcohol and Drug Abuse Patient Records regulations: The Federal rules restrict any use of the information to criminally investigate or prosecute any alcohol or drug abuse patient.[facility] HospitalIn the event this information is protected by the Federal Confidentiality of Alcohol and Drug Abuse Patient Records regulations: The Federal rules restrict any use of the information to criminally investigate or prosecute any alcohol or drug abuse patient.[facility] HospitalIn the event this information is protected by the Federal Confidentiality of Alcohol and Drug Abuse Patient Records regulations: The Federal rules restrict any use of the information to criminally investigate or prosecute any alcohol or drug abuse patient.[facility] HospitalIn the event this information is protected by the Federal Confidentiality of Alcohol and Drug Abuse Patient Records regulations: The Federal rules restrict any use of the information to criminally investigate or prosecute any alcohol or drug abuse patient.[facility] Reason for Visit (unrecogniz ed section and content) Reason Comments Chart prep Reason Comments Schedule Surgery Reason Comments New Pain Reason Comments Surgery Cancelled Reason Comments Cough Chest congestion, SCHUMACHER , fatigue INFORMATION SOURCE (unrecogn ized section and content) DATE CREATED AUTHOR 05/23/2024 [facility] DATE CREATED AUTHOR AUTHOR'S ORGANIZ ATION 08/01/2024 [facility] Care Teams (unrecognized sec tion and content) [...] BE BASED ON THE PRIMARY CLINICAL RECORDS. [employer] [facility]. provides no warranty or guarantee of the accuracy or completeness of information in this document.
[2024-12-11 21:22] LABS: Xtra Tube Kwok EXTRA TUBE
== END | disposition home or self-care (01) ==
LOC: POLAB3 13:21
PROVIDERS: PCP Family Medicine Geriatric Medicine; Visit Provider Family Medicine Geriatric Medicine
DX: E55.9 Vitamin D deficiency, unspecified (principal); R53.83 Other fatigue
CPT/HCPCS: 36415; 80053; 82306; 84443; 85025